=== PATIENT | male | born 1960 | race Caucasian/White ===

== ENCOUNTER 2019-12-18 12:10 | Emergency (ER) | payer BC, SELFPAY ==
[2019-12-18 12:19] VITALS: BP 163/72; PULSE 67; RESP 21; TEMP 37.2; O2SAT 99
--- NOTE | 2019-12-18 12:51 | ED.GENADULT ---
HPI - General Adult General Chief complaint: Extremity Problem,Nontraumatic Stated complaint: TOE PAIN Time Seen by Provider: 12/18/19 12:51 Source: patient and RN notes reviewed Mode of arrival: ambulatory Limitations: no limitations History of Present Illness HPI narrative: 59-year-old male presents with complaints of plantar LT 2nd, 3rd, and 4th toe swelling, warmth, tenderness, and redness for the past 2 days. No treatment. No known injury. Denies numbness or tingling. No weakness of LT leg, ankle, foot, or toes. Denies fever or chills. Denies immobility. Exacerbation is movement and palpation of toes. Relieving factor is rest. Denies break in skin or drainage. Denies abdominal pain, decrease appetite, nausea, or vomiting. History of Cellulitis. No history of MRSA. Remains active. Some parts of this dictation were generated by voice recognition software and may contain typographical and/or grammatical inaccuracies. Related Data Allergies Allergy/AdvReac Type Severity Reaction Status Date / Time No Known Allergies Allergy Unverified 07/27/18 18:51 Review of Systems Review of Systems: Narrative: CONSTITUTIONAL: Denies fever, chills, sweats. EYES: Denies visual changes, redness, discharge. ENT: Denies rhinorrhea, congestion, sore throat, otalgia. CARDIOVASCULAR: Denies chest pain, palpitations, edema. RESPIRATORY: Denies dyspnea, wheezing, cough. GASTROINTESTINAL: Denies abdominal pain, nausea, vomiting, diarrhea. GENITOURINARY: Denies dysuria, hematuria, abnormal discharge SKIN: Denies rash or itching. Complaints of plantar LT 2nd, 3rd, and 4th toes swelling, warmth, tenderness, and redness. Denies drainage. MUSCULOSKELETAL: Denies acute back pain or myalgia. Complains of plantar LT 2nd, 3rd, and 4th toes swelling, warmth, tenderness, and redness. Denies drainage. NEUROLOGIC: Denies numbness or focal weakness. PSYCHIATRIC: Denies anxiety or depression. All systems reviewed & are unremarkable except as noted in HPI and below. [facility] Past Medical History Medical History (Updated 12/21/19 @ 03:57 by ABDIRASHID Gonsalves) Colon polyp Diabetes Dyslipidemia Hypertension Hypothyroidism Inferior [place] 2005 Pancreatitis Umbilical hernia Surgical History Surgical History (Updated 12/21/19 @ 03:57 by ABDIRASHID Gonsalves) Hx of appendectomy Hx of CABG 2004, patient believe 3 vessels Family History Family History Grandparent Family history of cataracts Family history of heart disease in male family member before age 55 Father Carcinoma of colon Family history of hearing loss Patient's father is Mother Family history of coronary artery disease Family history of heart disease in male family member before age 55 Sibling Patient's brother is in good health Social History Social History (Updated 12/18/19 @ 13:10 by ABDIRASHID Gonsalves) Smoking status: Never smoker Second hand tobacco smoke exposure: No Alcohol intake: current Substance use: never Living arrangements: with family Occupation/Education: occupation Gender identity (if verbalized by the patient): Male Comments At time of signature, agree with nurse past medical, surgical, social, and family history. There is no relevant family history pertinent to the presenting complaint. Exam Narrative: Exam Narrative: GENERAL: This is a well-nourished, well-developed patient, in no apparent distress. Talks in full sentences and ambulates with steady gait without dyspnea. HEAD: normocephalic, atraumatic. EYES: PERRL. Sclera clear/white. Vision is grossly intact. NECK: Neck supple, non-tender without lymphadenopathy, masses or thyromegaly. CARDIOVASCULAR: Regular rate and rhythm without murmurs, gallops, or rubs. RESPIRATORY: Clear to auscultation. Breath sounds equal bilaterally. No wheezes, rales, or rhonchi. GASTROINTESTINAL: Abdomen soft, non-ten
== END 2019-12-18 13:15 | disposition home or self-care (01) ==
PROVIDERS: Emergency Provider Nurse Practitioner Family; PCP Internal Medicine
DX: L03.032 Cellulitis of left toe (principal); E11.9 Type 2 diabetes mellitus without complications; E78.5 Hyperlipidemia, unspecified; I10 Essential (primary) hypertension; E03.9 Hypothyroidism, unspecified; I25.2 Old myocardial infarction
CPT/HCPCS: 99213; G0463

== ENCOUNTER 2020-08-24 14:30 | Outpatient (CLI) | payer OTHER, SELFPAY ==
--- NOTE | 2020-08-24 | ECHO_ITS ---
Patient Info Name: Jesús Zhao Age: 60 years : 1960 Gender: Male Ht: 65 in Wt: 276 lbs BSA: 2.47 m2 HR: 73 bpm BP: 163 / 85 mmHg Heart Rhythm: Sinus Rhythm Technical Quality: Fair Exam Date: 08/24/2020 3:00 PM Exam Location: [facility] Patient Status: Outpatient Admit Date: 08/24/2020 Staff Ordering Physician: SandraNini MD Direct Marketing Representative: Albania Guzman RDCS Attending Provider: Fletcher, Nini Nuñez MD Referring Physician: Sandra WASSERMAN; Exam Type: CA echo doppler color flow Study Info Indications I48.0 - Paroxysmal atrial fibrillation Complete two-dimensional, color flow and Doppler transthoracic echocardiogram is performed. Summary 1. Complete two-dimensional, color flow and Doppler transthoracic echocardiogram is performed. 2. Left ventricular chamber dimension is normal. 3. Left ventricular systolic function is normal, estimated at 65-70%. 4. There is moderately increased left ventricular wall thickness. 5. The left ventricular diastolic function is grade I diastolic dysfunction. 6. There is mild tricuspid valve regurgitation. 7. There is mild pulmonic regurgitation. 8. Left atrial chamber dimension is mildly enlarged. 9. The aortic root size at the sinus of Valsalva is mildly dilated. Left Ventricle Left ventricular chamber dimension is normal. Left ventricular systolic function is normal, estimated at 65-70%. There is moderately increased left ventricular wall thickness. The left ventricular diastolic function is grade I diastolic dysfunction. Right Ventricle Right ventricular chamber dimension is normal. Right ventricular systolic function is normal. Left Atria Left atrial chamber dimension is mildly enlarged. Right Atria Right atrial chamber dimension is normal. Atrial Septum Intact interatrial septum visualized by color flow imaging. Aortic Valve The aortic valve is trileaflet. There is mild aortic valve sclerosis. There is no aortic valve stenosis. There is trace aortic valve regurgitation. Pulmonic Valve The pulmonic valve is normal. There is no pulmonic valve stenosis. There is mild pulmonic regurgitation. Mitral Valve The mitral valve has normal leaflets. There is no mitral valve stenosis. There is trace mitral valve regurgitation. Tricuspid Valve The tricuspid valve leaflets are normal. There is no significant tricuspid valve stenosis. There is mild tricuspid valve regurgitation. No pulmonary hypertension, estimated pulmonary arterial systolic pressure is 34 mmHg. Pericardium/Pleural The pericardium appears normal. There is no pericardial effusion. Inferior Vena Cava Normal inferior vena cava with >50% collapse upon inspiration consistent with normal right atrial pressure, 10 mmHg. Aorta The aortic root size at the sinus of Valsalva is mildly dilated. Left Ventricular Outflow Tract Name Value Normal LVOT 2D LVOT Diameter 2.1 cm LVOT Doppler LVOT Peak Gradient 4 mmHg LVOT Mean Gradient 2 mmHg LVOT VTI 22 cm
== END 2020-08-24 14:31 | disposition home or self-care (01) ==
PROVIDERS: PCP Internal Medicine; Visit Provider Internal Medicine Cardiovascular Disease
DX: I48.0 Paroxysmal atrial fibrillation (principal); I36.1 Nonrheumatic tricuspid (valve) insufficiency; I37.1 Nonrheumatic pulmonary valve insufficiency
CPT/HCPCS: 93306

== ENCOUNTER → 2021-02-03 01:08 | Outpatient (CLI) | payer OTHER, SELFPAY ==
[2021-02-03 19:43] LABS: SARS-CoV-2 RNA PCR Negative
== END ==
PROVIDERS: PCP Internal Medicine; Visit Provider Internal Medicine Gastroenterology
DX: Z01.812 Encounter for preprocedural laboratory examination (principal); Z20.822 Contact with and (suspected) exposure to COVID-19
CPT/HCPCS: C9803; U0003; U0005

== ENCOUNTER 2021-02-07 00:23 | Day surgery (SDC) | payer OTHER, SELFPAY ==
[2021-01-25 15:40] VITALS: BMI 47.3
[2021-02-07 11:43] VITALS: BP 172/80; PULSE 65; RESP 16; TEMP 36.6; O2SAT 97; BMI 47.8
[2021-02-07] MEDS: LACTATED RINGERS 1,000 ML 150 ML IV CONT (12:04)
[2021-02-07 12:08] LABS: Glucose Point of Care 121 (65-105)
--- NOTE | 2021-02-07 12:09 | WPDANESEPPF ---
Anes - Initial Pre Proc Eval Procedure: Operation Date: 02/07/21 12:30 Proposed Procedures p Esophagogastroduodenoscopy - Levi Ling MD Date/Time: 02/07/21 12:09 Surgeon: Levi Ling MD Pre Op Diagnosis: abd pain, abd bloating Patient Data Age: 61 Gender: M Height: 5 ft 5 in Weight: 130.4 kg Last Vital Signs Temp 97.8 F 02/07/21 11:43 Pulse 65 02/07/21 11:43 Resp 16 02/07/21 11:43 BP 172/80 H 02/07/21 11:43 Pulse Ox 97 02/07/21 11:43 Allergies Allergy/AdvReac Type Severity Reaction Status Date / Time No Known Allergies Allergy Verified 02/07/21 11:39 Home Medications Medication Instructions Recorded Confirmed Type pen needle, diabetic 31 gauge x #90 each 12/14/19 02/07/21 Rx 03/04 atorvastatin 80 mg tablet 80 mg PO DAILY 01/03/20 02/07/21 History carvedilol 12.5 mg tablet 12.5 mg PO Q12H 01/03/20 02/07/21 History clopidogrel 75 mg tablet 75 mg PO DAILY 01/03/20 02/07/21 History clotrimazole-betamethasone 1 1 applic TOPICAL BID 01/03/20 02/07/21 History %-0.05 % topical cream ezetimibe 10 mg tablet 10 mg PO DAILY 01/03/20 02/07/21 History furosemide 20 mg tablet 20 mg PO QAM 01/03/20 02/07/21 History nitroglycerin 0.4 mg sublingual 0.4 mg SUBLINGUAL Q5M 01/03/20 02/07/21 History tablet potassium chloride 10 mEq 10 meq PO DAILY 01/03/20 02/07/21 History capsule,extended release quinapril 40 mg tablet 40 mg PO DAILY 01/03/20 02/07/21 History ranolazine 1,000 mg 1,000 mg PO Q12H 01/03/20 02/07/21 History tablet,extended release,12 hr ropinirole 1 mg tablet 1 mg PO .QHS #30 tablet 10/09/20 02/07/21 Rx blood sugar diagnostic #400 ea 10/12/20 02/07/21 Rx omeprazole 20 mg tablet,delayed 20 mg PO DAILY #30 tablet 11/13/20 02/07/21 Rx release apixaban 2.5 mg tablet 2.5 mg PO BID 11/20/20 02/07/21 History pen needle, diabetic 32 gauge x #100 ea 12/27/20 02/07/21 Rx 5/32 amlodipine 2.5 mg PO DAILY 01/25/21 02/07/21 History levothyroxine 88 mcg tablet See Rx Instructions .ROUTE 01/31/21 02/07/21 Rx .COMPLEX #90 tablet sildenafil (pulm.hypertension) 20 40 - 100 mg PO ONCE PRN #50 tablet 02/05/21 02/07/21 Rx mg tablet flash glucose scanning reader #1 ea 02/06/21 02/07/21 Rx flash glucose scanning reader #6 ea 02/06/21 02/07/21 Rx insulin regular hum U-500 conc See Rx Instructions SUBCUT ONCE 02/06/21 02/07/21 Rx #30 ml liraglutide 0.6 mg/0.1 mL (18 mg/3 1.8 mg SUB-Q DAILY 90 Days #27 ml 02/06/21 02/07/21 Rx mL) subcutaneous pen injector metformin 500 mg tablet See Rx Instructions .ROUTE 02/06/21 02/07/21 Rx .COMPLEX #360 tablet Laboratory Tests 02/07/21 11:50 POC Capillary Glucose 121 mg/dl H mg/dl (65-105) Patient hx anesthesia problems: none Family hx anesthesia problems: none PMFSH Past Medical History Medical History (Updated 02/06/21 @ 08:41 by Lilly Rodríguez MD) Colon polyp Diabetes Dyslipidemia Hypertension Hypothyroidism Inferior [place] 2004 Pancreatitis Umbilical hernia Surgical History Surgical History Hx of appendectomy Hx of CABG 2004, patient believe 3 vessels Family History Family History Grandparent Family history of cataracts Family history of heart disease in male family member before age 55 Father Carcinoma of colon Family history of hearing loss Patient's father is Mother Family history of coronary artery disease Family history of heart disease in male family member before age 55 Sibling Patient's brother is in good health Social History Social History Smoking status: Never smoker Second hand tobacco smoke exposure: No Alcohol intake: current Drinks per week: 1 Substance use: never Living arrangements: with family Additional living arrangements comments:
--- NOTE | 2021-02-07 13:03 | PM.HPGS ---
History of Present Illness History of Present Illness Consent: Risks, benefits, and alternatives have been discussed and questions answered. Patient agrees to proceed with procedure. Chief complaint: abd pain, abd bloating Narrative: Jesús Zhao is a 61 year old male with abdominal bloating, h/o DM and sulfur burping , PPI is not helping, never had egd. Review of Systems Constitutional: Constitutional: Denies headache(s) and Denies weakness Eyes: Eyes: Denies blurry vision ENT: Reports Normal hearing present, Denies headache(s) and Denies neck pain Cardiovascular: Cardiovascular: Denies chest pain and Denies dyspnea Respiratory: Respiratory: Denies dyspnea Gastrointestinal: Gastrointestinal: Reports no additional gastrointestinal complaints Genitourinary: Genitourinary: Denies dysuria Musculoskeletal: Musculoskeletal: Denies neck pain Integumentary/Breasts: Skin/Breast: Denies dry skin Neurologic: Reports Normal hearing present, Denies headache(s) and Denies weakness Psychiatric: Psychiatric: Denies anxiety Endocrine: Endocrine: Denies change in body appearance Hematologic/Lymphatic: Hematologic/Lymphatic: Denies easy bleeding Allergic/Immunologic: Allergic/Immunologic: Denies urticaria PMFSH Past Medical History Medical History (Updated 02/07/21 @ 13:04 by Levi Ling MD) Bloating Colon polyp Diabetes Dyslipidemia Hypertension Hypothyroidism Inferior [place] 2004 Pancreatitis Umbilical hernia Surgical History Surgical History Hx of appendectomy Hx of CABG 2004, patient believe 3 vessels Family History Family History Grandparent Family history of cataracts Family history of heart disease in male family member before age 55 Father Carcinoma of colon Family history of hearing loss Patient's father is Mother Family history of coronary artery disease Family history of heart disease in male family member before age 55 Sibling Patient's brother is in good health Social History Social History Smoking status: Never smoker Second hand tobacco smoke exposure: No Alcohol intake: current Drinks per week: 1 Substance use: never Living arrangements: with family Additional living arrangements comments: lives with his 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 Gender identity (if verbalized by the patient): Male Spiritual care concerns: No Meds Home Medications and Allergies Home Medications Medication Instructions Recorded Confirmed Type pen needle, diabetic 31 gauge x #90 each 12/14/19 02/07/21 Rx 03/04 atorvastatin 80 mg tablet 80 mg PO DAILY 01/03/20 02/07/21 History carvedilol 12.5 mg tablet 12.5 mg PO Q12H 01/03/20 02/07/21 History clopidogrel 75 mg tablet 75 mg PO DAILY 01/03/20 02/07/21 History clotrimazole-betamethasone 1 1 applic TOPICAL BID 01/03/20 02/07/21 History %-0.05 % topical cream ezetimibe 10 mg tablet 10 mg PO DAILY 01/03/20 02/07/21 History furosemide 20 mg tablet 20 mg PO QAM 01/03/20 02/07/21 History nitroglycerin 0.4 mg sublingual 0.4 mg SUBLINGUAL Q5M 01/03/20 02/07/21 History tablet potassium chloride 10 mEq 10 meq PO DAILY 01/03/20 02/07/21 History capsule,extended release quinapril 40 mg tablet 40 mg PO DAILY 01/03/20 02/07/21 History ranolazine 1,000 mg 1,000 mg PO Q12H 01/03/20 02/07/21 History tablet,extended release,12 hr ropinirole 1 mg tablet 1 mg PO .QHS #30 tablet 10/09/20 02/07/21 Rx blood sugar diagnostic #400 ea 10/12/20 02/07/21 Rx omeprazole 20 mg tablet,delayed 20 mg PO DAILY #30 tablet 11/13/20 02/07/21 Rx release apixaban 2.5 mg tablet 2.5 mg PO BID 11/20/20 02/07/21 History pen needle, diabetic 32 gauge x #100 ea 12/27/20 02/07/21 Rx amlodipine 2.5 mg PO ERICA
[2021-02-07] MEDS: BENZOCAINE (*SP) 60 ML SPRAY CAN (HURRICAINE) 1 SPRAY MUCOUS MEM (13:11)
[2021-02-07 13:29] VITALS: BP 152/67; PULSE 69; RESP 24; O2SAT 96
[2021-02-07 13:39] VITALS: BP 155/71; PULSE 67; RESP 19; O2SAT 95
== END 2021-02-07 14:10 | disposition home or self-care (01) ==
PROVIDERS: PCP Internal Medicine; Visit Provider Internal Medicine Gastroenterology
PROC: 0DJ08ZZ Inspection of Upper Intestinal Tract, Via Natural or Artificial Opening Endoscopic (ICD-10-PCS; CPT 43235; principal; 2021-02-07 12:30)
DX: R14.0 Abdominal distension (gaseous) (principal); R14.2 Eructation; E11.9 Type 2 diabetes mellitus without complications; I10 Essential (primary) hypertension; E78.5 Hyperlipidemia, unspecified; E03.9 Hypothyroidism, unspecified; I25.2 Old myocardial infarction; Z95.1 Presence of aortocoronary bypass graft; E66.01 Morbid (severe) obesity due to excess calories; Z68.42 Body mass index [BMI] 45.0-49.9, adult; Z79.02 Long term (current) use of antithrombotics/antiplatelets; Z79.01 Long term (current) use of anticoagulants; Z79.4 Long term (current) use of insulin; Z79.84 Long term (current) use of oral hypoglycemic drugs
CPT/HCPCS: 43239; 82948; 88305; C9803; J2001; J2704; J7120; U0003; U0005

== ENCOUNTER 2021-04-02 09:01 | Outpatient (CLI) | payer OTHER, SELFPAY ==
--- NOTE | ~2021-04-02 | NM_ITS ---
EXAM: NM gastric emptying study DATE: 04/02/2021 14:44 INDICATION: Gaseous distention of the abdomen TECHNIQUE: A gastric emptying study was performed using the methodology of Madeline DUTTON, et al. J Nucl Med 2007; 48:568-572. The patient was given a meal consisting of 2 scrambled eggs labeled with 0.996 mCi Tc-99m sulfur colloid, 2 slices of toast, two packages of jam, and approximately 120 mL of water . Simultaneous anterior and posterior 1-min images of the abdomen were obtained with the patient supi ne at multiple time points over a total period of 4 hours. The geometric mean of anterior and posteri or views was determined, and the percentage retention was calculated for each time point. COMPARISON: None. FINDINGS: Gastric retention of the radiotracer-labeled meal was 83%, 70%, and 48% at the 1-hour, 2-hour, and 4- hour time points, respectively. With this technique, apparent rapid gastric emptying is suggested by <30% gastric retention at 1 hour. Delayed gastric emptying is defined by gastric retention of >90% at 1 hour, >60% retention at 2 hours, or >10% retention at 4 hours. IMPRESSION: 1. Delayed gastric emptying. Reviewed, dictated and finalized at location A.
== END 2021-04-02 09:02 | disposition home or self-care (01) ==
PROVIDERS: PCP Internal Medicine; Visit Provider Internal Medicine Gastroenterology
DX: E11.65 Type 2 diabetes mellitus with hyperglycemia (principal); R14.0 Abdominal distension (gaseous); Z79.4 Long term (current) use of insulin; K30 Functional dyspepsia
CPT/HCPCS: 78264; A9541

== ENCOUNTER 2022-07-10 07:56 | Outpatient (CLI) | payer OTHER, SELFPAY ==
--- NOTE | 2022-08-07 18:53 | WPDSLEEPSTUD ---
Sleep Study Date of Study: 07/10/22 Ordering Provider: Joshua Danielle PA-C Interpreting Physician: Laura Reddy DO Sleep Study Type: Split Polysomnogram Height: 1.65 m Weight: 133.81 kg Body Mass Index: 49.1 Neck Circumference (inches): 18 [place]: 18 Reason for Sleep Study Previously diagnosed JULIANNE in 1998. His previous machine broke 6 weeks ago. Sleep History The patient is a 62 year old male with hypertension, coronary artery disease, diabetes, GERD, peripheral neuropathy, history of stents and bypass and previously diagnosed sleep apnea that had a sleep study ordered by his primary care to requalify for PAP therapy. The patient frequently awakens from sleep short of breath. He occasionally awakens at night with heartburn, belching or cough. He frequently snores loud enough that others complain. He frequently has trouble sleeping when he has a cold. He occasionally wakes up gasping for air throughout the night. He occasionally has breathing problems at night observed by himself or others. He frequently sweats excessively at night. He frequently has heart palpitations or irregular heartbeats during the night. He occasionally falls asleep during the day but rarely while driving. He denies having cataplexy. He occasionally has trouble at school or work due to sleepiness. He occasionally feels unable to move while waking up or falling asleep. He occasionally experiences vivid dreamlike scenes upon awakening or falling asleep. He rarely feels afraid of going to sleep. He rarely has nightmares. He occasionally remembers his dreams. He occasionally has thoughts racing through his mind. He rarely feels sad or depressed. He rarely has anxiety. He rarely has muscular tension. He rarely notices parts of his body jerk. He rarely kicks during the night. He rarely has crawling and aching feelings in his legs. He rarely has leg pain during the night. He occasionally grinds his teeth during sleep but denies awakening with morning jaw pain. He is rarely bothered by pain during the day and rarely awakened by pain during the night. He occasionally wakes up feeling stiff in the morning. He rarely wakes up with sore achy muscles. He rarely wakes up with pain in the neck, spine and other joints. He goes to bed between 1:23 a.m. on weekdays and between 2-4 a.m. on the weekends. It takes him up to 2 hours to fall asleep. He wakes up every 1-2 hours to use the restroom, get a drink and or play a game on his [place]. It takes him 30 minutes to fall back asleep. He wakes up between 7-8 a.m. on weekdays and between 9-11 a.m. on the weekends. He typically gets 2-5 hours of sleep per night. He will stay in bed for 15-30 minutes after waking up in the morning. He currently lives with his and son's ex-fiance. He does not consume any caffeinated beverages within 2 hours of bedtime. He does not engage in physical exercise before bedtime. He will read and watch television before falling asleep. He will take naps in the afternoon or the evening but they are not refreshing. He drinks 3 caffeinated beverages per day. He denies tobacco, alcohol and recreational drug use. [facility] Past Medical History Medical History Bloating Colon polyp Diabetes Dyslipidemia Hypertension Hypothyroidism Inferior [place] 2004 Pancreatitis Umbilical hernia Surgical History Surgical History Hx of appendectomy Hx of CABG 2004, patient believe 3 vessels Family History Family History Grandparent Family history of cataracts Family history of heart disease in male family member before age 55 Father Carcinoma of colon Family history of hearing loss Patient's father is Mother Family history of coronary artery disease Family history of heart disease in ct
[2022-08-07 19:04] VITALS: BMI 49.1
== END 2022-07-11 06:51 | disposition home or self-care (01) ==
LOC: ANHCSM 07:57
PROVIDERS: PCP Physician Assistant; Visit Provider Physician Assistant
DX: G47.33 Obstructive sleep apnea (adult) (pediatric) (principal)
CPT/HCPCS: 95811

== ENCOUNTER 2024-08-10 03:06 | Day surgery (SDC) | payer MEDICARE, OTHER, SELFPAY ==
[2024-08-04 14:39] VITALS: BMI 44.1
--- NOTE | 2024-08-05 11:54 | PC.NURSE ---
Patient requested this information to be emailed. He is instructed regarding medication Plavix and Eliquis that the last dose of PLAVIX IS 08/05/24 and last dose of ELIQUIS IS 08/07/2024 and the Endoscopist will instruct them when to restart after the procedure.
[2024-08-10 08:39] VITALS: BP 164/75; PULSE 66; RESP 18; TEMP 36.5; O2SAT 95; BMI 43.9
--- NOTE | 2024-08-10 08:50 | PM.HPGS ---
History of Present Illness History of Present Illness Consent: Risks, benefits, and alternatives have been discussed and questions answered. Patient agrees to proceed with procedure. Chief complaint: History colon polyps Narrative: Jesús Zhao is a 64 year old male with colon polyp, last colonoscopy 2019 Review of Systems Review of Systems: All systems reviewed & are unremarkable except as noted in HPI and below PMFSH Past Medical History Medical History (Updated 08/10/24 @ 08:53 by Levi Ling MD) Atherosclerosis Bloating Body mass index (BMI) greater than 50 (01/03/16) CAD (coronary artery disease) Colon polyp Diabetes Diabetic peripheral neuropathy Dyslipidemia Essential (primary) hypertension Gastro-esophageal reflux disease without esophagitis History of PAT (paroxysmal atrial tachycardia) Hypertension Hypothyroidism Hypothyroidism (acquired) Inferior [place] 2004 Male erectile dysfunction, unspecified Metabolic syndrome Morbid obesity with BMI of 45.0-49.9, adult Musculoskeletal pain JULIANNE (obstructive sleep apnea) Pancreatitis Pure hypercholesterolemia Sleep apnea, unspecified Type 2 diabetes mellitus without complications Umbilical hernia Surgical History Surgical History Hx of appendectomy Hx of CABG 2004, patient believe 3 vessels Family History Family History Grandparent Family history of cataracts Family history of heart disease in male family member before age 55 Father Carcinoma of colon Family history of hearing loss Patient's father is Mother Family history of coronary artery disease Family history of heart disease in male family member before age 55 Sibling Patient's brother is in good health Social History Social History Smoking status: Never smoker Second hand tobacco smoke exposure: No Alcohol intake: current Drinks per week: 1 Substance use: never Substance use type: does not use Do You Feel Safe in your Home?: Yes Lack of Transportation: No Lack of Food: Never True Current Housing: I Have Housing Concerned About Future Housing: No Difficulty Paying Gas/Electric Bills: No Difficulty Paying for Meds: No Currently Unemployed: No Education: Bachelor's Degree Difficulty w/ Childcare or Family Care: No Living arrangements: with family Additional living arrangements comments: lives with his Occupation/Education: occupation 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 Gender identity (if verbalized by the patient): Male Spiritual care concerns: No Meds Home Medications and Allergies Home Medications Medication Instructions Recorded Confirmed Type carvedilol 12.5 mg tablet 12.5 mg PO Q12H 01/03/20 08/10/24 History potassium chloride 10 mEq 10 meq PO DAILY PRN WITH LASIX 01/03/20 08/10/24 History capsule,extended release furosemide 20 mg tablet 20 mg PO QAM PRN Edema 06/11/21 08/10/24 History clopidogrel 75 mg tablet See Rx Instructions .Route 04/11/23 08/10/24 Rx .COMPLEX #90 tabs apixaban 5 mg tablet (Eliquis) 5 mg PO BID #1 tablet 11/25/23 08/10/24 Rx amlodipine 5 mg-benazepril 20 mg 1 cap PO DAILY #90 caps 01/19/24 08/10/24 Rx capsule atorvastatin 80 mg tablet 80 mg PO DAILY #90 tabs 01/19/24 08/10/24 Rx blood sugar diagnostic #400 ea 01/19/24 08/10/24 Rx ezetimibe 10 mg tablet (Zetia) 10 mg PO DAILY #90 tabs 01/19/24 08/10/24 Rx insulin regular hum U-500 conc 500 See Rx Instructions .Route 01/19/24 08/10/24 Rx unit/mL(3 mL) subcut pen (Humulin .COMPLEX #48 mL R U-500 (Conc) Insulin Kwikpen) pen needle, diabetic 32 gauge x See Rx Instructions .Route 01/19/24 08/10/24 Rx 5/32 (BD Deya 2nd Gen Pen Needle) .COMPLEX #300 ea ropinirole 1 mg tablet 1 mg PO .QHS #90 tabs 02/06/24 08/10/24 Rx empaglif
[2024-08-10] MEDS: LACTATED RINGERS 1,000 ML 150 ML IV CONT (08:52)
--- NOTE | 2024-08-10 08:58 | WPDANESEPPF ---
Anes - Initial Pre Proc Eval Procedure: Operation Date: 08/10/24 09:30 Proposed Procedures p Colonoscopy - Levi Ling MD Date/Time: 08/10/24 08:58 Surgeon: Levi Ling MD Pre Op Diagnosis: History colon polyps Patient Data Age: 64 Gender: M Height: 1.65 m Weight: 119.8 kg Last Vital Signs Temp 36.5 C 08/10/24 08:39 Pulse 66 08/10/24 08:39 Resp 18 08/10/24 08:39 BP 164/75 H 08/10/24 08:39 Pulse Ox 95 08/10/24 08:39 O2 Del Method Room Air 08/10/24 08:39 Allergies Allergy/AdvReac Type Severity Reaction Status Date / Time No Known Allergies Allergy Verified 08/10/24 08:27 Home Medications Medication Instructions Recorded Confirmed Type carvedilol 12.5 mg tablet 12.5 mg PO Q12H 01/03/20 08/10/24 History potassium chloride 10 mEq 10 meq PO DAILY PRN WITH LASIX 01/03/20 08/10/24 History capsule,extended release furosemide 20 mg tablet 20 mg PO QAM PRN Edema 06/11/21 08/10/24 History clopidogrel 75 mg tablet See Rx Instructions .Route 04/11/23 08/10/24 Rx .COMPLEX #90 tabs apixaban 5 mg tablet (Eliquis) 5 mg PO BID #1 tablet 11/25/23 08/10/24 Rx amlodipine 5 mg-benazepril 20 mg 1 cap PO DAILY #90 caps 01/19/24 08/10/24 Rx capsule atorvastatin 80 mg tablet 80 mg PO DAILY #90 tabs 01/19/24 08/10/24 Rx blood sugar diagnostic #400 ea 01/19/24 08/10/24 Rx ezetimibe 10 mg tablet (Zetia) 10 mg PO DAILY #90 tabs 01/19/24 08/10/24 Rx insulin regular hum U-500 conc 500 See Rx Instructions .Route 01/19/24 08/10/24 Rx unit/mL(3 mL) subcut pen (Humulin .COMPLEX #48 mL R U-500 (Conc) Insulin Kwikpen) pen needle, diabetic 32 gauge x See Rx Instructions .Route 01/19/24 08/10/24 Rx 5/32 (BD Deya 2nd Gen Pen Needle) .COMPLEX #300 ea ropinirole 1 mg tablet 1 mg PO .QHS #90 tabs 02/06/24 08/10/24 Rx empagliflozin 25 mg tablet 25 mg PO QAM #90 tabs 05/05/24 08/10/24 Rx (Jardiance) semaglutide 2 mg/dose (8 mg/3 mL) 2 mg (0.75 mL) subcut WEEKLY 90 05/26/24 08/10/24 Rx subcutaneous pen injector (Ozempic) days #9 mL clotrimazole-betamethasone 1 1 applic topical BID #45 grams 07/07/24 08/10/24 Rx %-0.05 % topical cream sildenafil (pulm.hypertension) 20 40 - 100 mg PO ONCE PRN sexual 07/07/24 08/10/24 Rx mg tablet activity #50 tabs gabapentin 300 mg capsule 300 mg PO BID #60 caps 07/16/24 08/10/24 Rx glucagon 3 mg/actuation nasal spray 3 mg intranasal ONCE PRN LOW BLOOD 08/04/24 08/10/24 History SUGAR levothyroxine 88 mcg tablet See Rx Instructions .Route 08/04/24 08/10/24 Rx .COMPLEX #90 tabs metformin 500 mg tablet,extended 2,000 mg PO DAILY #360 tabs 08/04/24 08/10/24 Rx release 24 hr nitroglycerin 0.4 mg sublingual 0.4 mg sublingual Q5M CHEST PAIN 08/04/24 08/10/24 History tablet (Nitrostat) ranolazine 500 mg tablet,extended 500 mg PO DAILY 08/04/24 08/10/24 History release,12 hr omeprazole 20 mg capsule,delayed See Rx Instructions .Route 08/05/24 08/10/24 Rx release .COMPLEX #90 caps Patient hx anesthesia problems: none Family hx anesthesia problems: none Results Review: All pre-operative results and documents have been reviewed as part of the pre-operative evaluation. [facility] Past Medical History Medical History Atherosclerosis Bloating Body mass index (BMI) greater than 50 (01/03/16) CAD (coronary artery disease) Colon polyp Diabetes Diabetic peripheral neuropathy Dyslipidemia Essential (primary) hypertension Gastro-esophageal reflux disease without esophagitis History of PAT (paroxysmal atrial tachycardia) Hypertension Hypothyroidism Hypothyroidism (acquired) Inferior [place] 2004 Male erectile dysfunction, unspecified Metabolic syndrome Morbid obesity with BMI of 45.0-49.9, adult Musculoskeletal pain JULIANNE (obstructive sleep apnea) Pancreatitis Pure hypercholesterolemia Sleep apnea, unspecified Type 2 diabetes mellitus without complications Umbilical herni
[2024-08-10 09:05] LABS: Glucose Point of Care 150 mg/dl (65-105)
[2024-08-10 09:24] VITALS: BP 129/49; PULSE 62; RESP 18; O2SAT 97
[2024-08-10 09:34] VITALS: BP 157/65; PULSE 60; RESP 18; O2SAT 99
[2024-08-10 09:44] VITALS: BP 129/55; PULSE 61; RESP 18; O2SAT 99
[2024-08-10 10:16] LABS: Glucose Point of Care 134 mg/dl (65-105)
== END 2024-08-10 09:50 | disposition home or self-care (01) ==
PROVIDERS: PCP Internal Medicine; Visit Provider Internal Medicine Gastroenterology
PROC: 0DJD8ZZ Inspection of Lower Intestinal Tract, Via Natural or Artificial Opening Endoscopic (ICD-10-PCS; CPT 45378; principal; 2024-08-10 09:30)
DX: Z12.11 Encounter for screening for malignant neoplasm of colon (principal); D12.2 Benign neoplasm of ascending colon; D12.3 Benign neoplasm of transverse colon; D12.5 Benign neoplasm of sigmoid colon; K64.8 Other hemorrhoids; E78.5 Hyperlipidemia, unspecified; I10 Essential (primary) hypertension; E11.42 Type 2 diabetes mellitus with diabetic polyneuropathy; K21.9 Gastro-esophageal reflux disease without esophagitis; E03.9 Hypothyroidism, unspecified; N52.9 Male erectile dysfunction, unspecified; I70.90 Unspecified atherosclerosis; I25.10 Atherosclerotic heart disease of native coronary artery without angina pectoris; I47.19 Other supraventricular tachycardia; I25.2 Old myocardial infarction; E88.810 Metabolic syndrome; G47.33 Obstructive sleep apnea (adult) (pediatric); E66.01 Morbid (severe) obesity due to excess calories; Z68.41 Body mass index [BMI] 40.0-44.9, adult; Z79.01 Long term (current) use of anticoagulants; Z79.4 Long term (current) use of insulin; Z79.84 Long term (current) use of oral hypoglycemic drugs; Z79.02 Long term (current) use of antithrombotics/antiplatelets; Z79.85 Long-term (current) use of injectable non-insulin antidiabetic drugs; Z98.890 Other specified postprocedural states; Z95.1 Presence of aortocoronary bypass graft; Z80.0 Family history of malignant neoplasm of digestive organs; Z82.49 Family history of ischemic heart disease and other diseases of the circulatory system
CPT/HCPCS: 45385; 82948; 88305; J2704; J7120

== ENCOUNTER 2024-08-19 09:47 | Inpatient (IN) | payer MEDICARE, OTHER, SELFPAY ==
[2024-08-19] VITALS (19 sets, daily range): BP systolic 82–123; BP diastolic 35–75; PULSE 73–95; RESP 13–20; TEMP 36.3–37; O2SAT 95–100; BMI 43.4
--- NOTE | ~2024-08-19 | CT_ITS ---
EXAMINATION: CT abdomen pelvis w con DATE: 08/19/2024 12:06 INDICATION: Rectal bleeding and left lower quadrant abdominal pain TECHNIQUE: Computed tomography (CT) of the abdomen and pelvis was performed with 100 mL Omnipaque-350 intravenous contrast. Automated exposure control and iterative reconstruction technique were employe d. The dose-length product was 1464.07 mGy-cm. COMPARISON: 08/05/2013 FINDINGS: Discoid atelectasis in the left lower lobe and lingula. Heart size is normal. No pericardial or pleur al effusion. Atherosclerotic coronary artery calcifications with change of prior median sternotomy an d coronary artery bypass grafting. A few small gallstones at the neck of the decompressed normal-appe aring gallbladder. Liver, spleen and pancreas are normal. Stable appearance of mild nodular thickenin g of the bilateral adrenal glands. Multiple small parapelvic cysts at both kidneys with additional 1. 3 similar parenchymal cyst at the mid left kidney. A couple nonobstructing stones, the larger measuri ng 6 mm at the lower pole of the left kidney. There is some fluid in nondilated small bowel and proxi mal colon consistent with diarrhea. No abnormal bowel wall thickening or obstruction. The appendix is not visualized. No pericecal inflammatory change to suggest acute appendicitis. Small fat-containing umbilical hernia. Bladder is normal. No free intraperitoneal gas or fluid. No pathologically enlarge d abdominal or pelvic lymphadenopathy. Mild thoracolumbar levocurvature with severe spondylosis. IMPRESSION: 1. Fluid in nondilated normal. Large and small bowel consistent with nonspecific diarrhea. No other a cute intra-abdominal/pelvic process. 2. Nonobstructing left nephrolithiasis. 3. Cholelithiasis. Reviewed, dictated and finalized at location A. IMPRESSION: 1. Fluid in nondilated normal. Large and small bowel consistent with nonspecifi c diarrhea. No other acute intra-abdominal/pelvic process. 2. Nonobstructing left nephrolithiasis. 3. Cholelithiasis.
[2024-08-19 11:14] LABS: Basophils Percent Auto 0.4 % (0.2-1.2); Eosinophils Absolute Auto 0.2 K/mm3 (0-0.3); Eosinophils Percent Auto 1.6 % (0-4.4); Hematocrit 36.9 % (42.0-52.0); Hemoglobin 11.5 g/dL (14.0-18.0); Immature Granulocyte Absolute 0.05 K/mm3 (0.00-0.031); Immature Granulocyte Percent A 0.5 % (0-0.5); Lymphocytes Percent Auto 10.6 % (18.3-44.2); Mean Corpuscular HGB Conc 31.2 g/dl (32-36); Mean Corpuscular Hemoglobin 25.4 pg (26-34); Mean Corpuscular Volume 81.5 fl (80-100); Mean Platelet Volume 9.3 fl (7.4-10.4); Monocytes Absolute Auto 0.7 K/mm3 (0.1-0.6); Monocytes Percent Auto 7.5 % (2.6-8.5); Neutrophils Absolute Auto 7.5 K/mm3 (1.3-6.7); Neutrophils Percent Auto 79.4 % (45.5-73.1); Platelet Count Result 301 k/mm3 (150-375); Red Blood Count 4.53 M/mm3 (4.6-6.20); Red Cell Distribution Width 17.6 % (11.5-14.5); White Blood Count 9.5 K/mm3 (4.5-10.0)
[2024-08-19 11:25] LABS: Alanine Aminotransferase 27 U/L (6-50); Albumin Level 3.4 g/dL (3.5-5.1); Alkaline Phosphatase 65 U/L (38-126); Anion Gap 11 mmol/L (4-12); Aspartate Amino Transferase 21 U/L (17-59); Bilirubin,Total 0.6 mg/dL (0.2-1.3); Blood Urea Nitrogen 20 mg/dL (9-20); Calcium 8.4 mg/dL (8.4-10.2); Carbon Dioxide 20 mmol/L (22-30); Chloride 110 mmol/L (98-107); Estimated CRCL calculation 76 ml/min; Estimated Glomerular Filt Rate > 60; Glucose 160 mg/dL (65-110); Potassium 4.1 mmol/L (3.4-5.0); Sodium 141 mmol/L (137-145)
[2024-08-19 11:39] LABS: INR 1.2; Prothrombin Time 15.1 Seconds (11.1-14.7)
[2024-08-19 11:40] LABS: Partial Thromboplastin Time 27.1 Seconds (22.3-36.8)
--- NOTE | 2024-08-19 12:06 | ED_ITS ---
HPI - General Adult General Chief complaint: GI Bleed Stated complaint: BLOOD IN STOOL Time Seen by Provider: 08/19/24 11:15 History of Present Illness HPI narrative: 64-year-old male present to the emergency department for evaluation for dark red blood per rectum. Patient started having diarrhea yesterday. Patient then noticed that his diarrhea started having both bright red and dark red blood in it. Patient also does report associated left lower quadrant pain. Patient does take Eliquis. On 08/10 patient did have polyps removed by Dr. Young Related Data Home Medications Medication Instructions Recorded Confirmed carvedilol 12.5 mg tablet 12.5 mg PO Q12H 01/03/20 08/19/24 furosemide 20 mg tablet 20 mg PO QAM PRN Edema 06/11/21 08/19/24 glucagon 3 mg/actuation nasal spray 3 mg intranasal ONCE PRN LOW BLOOD 08/04/24 08/19/24 SUGAR nitroglycerin 0.4 mg sublingual 0.4 mg sublingual Q5M CHEST PAIN 08/04/24 08/19/24 tablet (Nitrostat) ranolazine 500 mg tablet,extended 500 mg PO DAILY 08/04/24 08/19/24 release,12 hr atorvastatin 80 mg tablet 80 mg PO HS 08/19/24 08/19/24 clopidogrel 75 mg tablet 75 mg PO DAILY 08/19/24 08/19/24 levothyroxine 88 mcg tablet 88 mcg PO DAILY 08/19/24 08/19/24 omeprazole 20 mg capsule,delayed 20 mg PO HS 08/19/24 08/19/24 release Allergies Allergy/AdvReac Type Severity Reaction Status Date / Time No Known Allergies Allergy Verified 08/10/24 08:27 Review of Systems Review of Systems: All systems reviewed & are unremarkable except as noted in HPI and below PMFSH Past Medical History Medical History Atherosclerosis Bloating Body mass index (BMI) greater than 50 (01/03/16) CAD (coronary artery disease) Colon polyp Diabetes Diabetic peripheral neuropathy Dyslipidemia Essential (primary) hypertension Gastro-esophageal reflux disease without esophagitis History of PAT (paroxysmal atrial tachycardia) Hypertension Hypothyroidism Hypothyroidism (acquired) Inferior [place] 2004 Male erectile dysfunction, unspecified Metabolic syndrome Morbid obesity with BMI of 45.0-49.9, adult Musculoskeletal pain JULIANNE (obstructive sleep apnea) Pancreatitis Pure hypercholesterolemia Sleep apnea, unspecified on CPAP Type 2 diabetes mellitus without complications Umbilical hernia Surgical History Surgical History History of coronary artery stent placement x5, 2005 Hx of appendectomy Hx of CABG 2005, patient believe 3 vessels Family History Family History Grandparent Family history of cataracts Family history of heart disease in male family member before age 55 Father Carcinoma of colon Family history of hearing loss Patient's father is Mother Family history of coronary artery disease Family history of heart disease in male family member before age 55 Sibling Patient's brother is in good health Social History Social History Smoking status: Never smoker Second hand tobacco smoke exposure: No Alcohol intake: never Drinks per week: 1 Substance use: never Substance use type: does not use Do You Feel Safe in your Home?: Yes Lack of Transportation: No Lack of Food: Never True Current Housing: I Have Housing Concerned About Future Housing: No Difficulty Paying Gas/Electric Bills: No Difficulty Paying for Meds: No Currently Unemployed: No Education: Bachelor's Degree Difficulty w/ Childcare or Family Care: No Living arrangements: with family Additional living arrangements comments: lives with his Occupation/Education: occupation 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 HEAD: normocephalic, atraumatic. EYES: PERRLA/EOMI, conjunctivae clear. NOSE: Normal no drainage EARS:TMS clear with good light reflex. THROAT: Pharynx clear, no exudate. NECK: Supple. No adenopathy, no masses. RESPIRATORY: Airway patent, respirations nonlabored. Clear to auscultation bilaterally, no rales, rhonchi, wheezing. CARDIOVASCULAR: Regular rate and rhythm without murmurs rubs or gallops. ABDOMINAL: Left lower quadrant tenderness to palpation MUSCULOSKELETAL: Moves all extremities. Strength/ROM intact, No edema, No calf tenderness. NEURO: Alert. Cranial nerves II through XII intact. Rectal exam: Positive Hemoccult SKIN: Warm, dry. Normal Color Course Vital Signs Vital signs: Vital Signs Temperature 97.8 F 08/19/24 10:30 Pulse Rate 81 08/19/24 10:30 Respiratory Rate 16 08/19/24 10:30 Blood Pressure 82/35 L 08/19/24 10:30 Pulse Oximetry 97 08/19/24 10:30 Temperature 97.9 F 08/19/24 17:43 Pulse Rate 95 08/19/24 18:00 Respiratory Rate 15 08/19/24 17:43 Blood Pressure 115/49 L 08/19/24 17:43 Pulse Oximetry 98 08/19/24 17:43 Oxygen Delivery Room Air 08/19/24 16:00 Medical Decision Making MDM Narrative Medical decision making narrative: 64-year-old male presents emergency department for evaluation for blood in his stool while on Eliquis. Patient initially had no hematemesis but did have episode of hematemesis while he was emergency department. Patient was started on Protonix and famotidine. Patient is afebrile with no leukocytosis. Patien t's initial baseline hemoglobin is closer to 13 patient's hemoglobin on arrival was 11. Patient's INR is 1.2. No significant abnormalities on the patient's CMP. GI was consulted and patient was admitted to the hospitalist. Patient family are comfortable with plan for admission. All questions concerns were addressed. Differential Diagnosis Differential Diagnosis: Colitis, diverticulitis, bleeding hemorrhoids, gastritis, bleeding ulcer, upper GI bleed, lower GI bleed, anemia Vital Signs Vital Signs: Vital Signs Temperature 97.8 F 08/19/24 10:30 Pulse Rate 81 08/19/24 10:30 Respiratory Rate 16 08/19/24 10:30 Blood Pressure 82/35 L 08/19/24 10:30 Pulse Oximetry 97 08/19/24 10:30 Temperature 97.9 F 08/19/24 17:43 Pulse Rate 95 08/19/24 18:00 Respiratory Rate 15 08/19/24 17:43 Blood Pressure 115/49 L 08/19/24 17:43 Pulse Oximetry 98 08/19/24 17:43 Oxygen Delivery Room Air 08/19/24 16:00 Lab Data Lab results reviewed: Yes I reviewed the patient's lab results. 08/19/24 16:06 08/19/24 11:05 Labs: Lab Results 08/19/24 Range/Units 11:05 WBC 9.5 (4.5-10.0) K/mm3 RBC 4.53 L (4.6-6.20) M/mm3 Hgb 11.5 L (14.0-18.0) g/dL Hct 36.9 L (42.0-52.0) % MCV 81.5 (80-100) fl MCH 25.4 L (26-34) pg MCHC 31.2 L (32-36) g/dl RDW 17.6 H (11.5-14.5) % Plt Count 301 (150-375) k/mm3 MPV 9.3 (7.4-10.4) fl Immature Gran % (Auto) 0.5 (0-0.5) % Neut % (Auto) 79.4 H (45.5-73.1) % Lymph % (Auto) 10.6 L (18.3-44.2) % Sullivan % (Auto) 7.5 (2.6-8.5) % Eos % (Auto) 1.6 (0-4.4) % Baso % (Auto) 0.4 (0.2-1.2) % Lymph # (Auto) 1.00 (0.9-3.2) K/mm3 Sullivan # (Auto) 0.7 H (0.1-0.6) K/mm3 Eos # (Auto) 0.2 (0-0.3) K/mm3 Baso # (Auto) 0.0 (0.0-0.1) K/mm3 Abs Immat Gran (auto) 0.05 H (0.00-0.031) K/mm3 Absolute Neuts (auto) 7.5 H (1.3-6.7) K/mm3 Absolute Nucleated RBC 0.000 (0.0-0.012) K/mm3 Nucleated RBC % 0.0 (0.0-0.2) % PT 15.1 H (11.1-14.7) Seconds INR 1.2 APTT 27.1 (22.3-36.8) Seconds Sodium 141 (137-145) mmol/L Potassium 4.1 (3.4-5.0) mmol/L Chloride 110 H (98-107) mmol/L Carbon Dioxide 20 L (22-30) mmol/L Anion Gap 11 (4-12) mmol/L BUN 20 (9-20) mg/dL Creatinine 1.00 (0.7-1.3) mg/dL Estim Creat Clear Calc 76 ml/min Estimated GFR > 60 (59 - ) Glucose 160 H (65-110) mg/dL Calcium 8.4 (8.4-10.2) mg/dL Total Bilirubin 0.6 (0.2-1.3) mg/dL AST 21 (17-59) U/L ALT 27 (6-50) U/L Alkaline Phosphatase 65 (38-126) U/L Total Protein 6.0 L (6.3-8.2) g/dL Albumin 3.4 L (3.5-5.1) g/dL Blood Type O Positive Antibody Screen Negative Crossmatch See Detail Imaging Data Radiologist's impression: Impressions Abdomen/Pelvis CT 08/19/24 12:11 IMPRESSION: 1. Fluid in nondilated normal. Large and small bowel consistent with nonspecific diarrhea. No other acute intra-abdominal/pelvic process. 2. Nonobstructing left nephrolithiasis. 3. Cholelithiasis. Critical Care Time Critical Care Time Critical Care Time: Yes Total Critical Care Time: 35 Discharge Plan Discharge Clinical Impression: Acute upper GI bleeding Patient Disposition: Still a Patient Condition: Improved
[2024-08-19] MEDS: PANTOPRAZOLE SODIUM IV 40 MG VIAL IV PUSH (12:18)
[2024-08-19] MEDS: FAMOTIDINE 20 MG/2 ML VIAL IV PUSH (12:18)
[2024-08-19] MEDS: SODIUM CHLORIDE 0.9% IV 1,000 ML 999 ML IV CONT ×2 (12:19→14:30)
--- NOTE | 2024-08-19 14:20 | PM.IMHP ---
H&P: HPI History of Present Illness Date/Time: 08/19/24 14:20 Chief Complaint: Blood in Stool Narrative: 64 y/o M presents here with blood in his stool with PMH of CAD, diabetes, HTN, GERD, hypothyroidism, NH, JULIANNE, sleep apnea. The patient presents here from home for further evaluation of blood in his stool. First blood tinged diarrhea (bright red) episode occurred this morning at 7:30 a.m., has had 3 episodes while at home and 4-5 post-arrival to the hospital. Loose stools began yesterday but were normal in color, however he reports he chronically has loose stools due a side effect of Ozempic. Reports associated abdominal pain he further describes as slight, has resolved, cramping, nonradiating, LLQ, constant and worsens with palpation. The patient is currently on Eliquis. He recently had a colonoscopy on on 08/10/2024 which showed colonic polyps with polypectomy performed and internal hemorrhoids here at [facility]. He reports one episode of BRB post-BM that occurred. Has family history of colon cancer - father, paternal grandmother. No associated fever, chills, or body aches. Initial VS at presentation: 97.8? F, HR 81, RR 16, 82/35, and 97% on RA. ED workup showed: Number acidosis, hemoglobin 11.5 (previously 13.1 on 12/20/2023), INR 1.2, creatinine 1.0 and GFR >60, glucose 160. CT of the abdomen/pelvis showed fluid in in the nondilated small bowel and proximal colon consistent with diarrhea, no other acute intra-abdominal/pelvic process, nonobstructing left nephrolithiasis, and cholelithiasis. Review of Systems Review of Systems: All systems reviewed & are unremarkable except as noted in HPI and below PMFSH Past Medical History Medical History Atherosclerosis Bloating Body mass index (BMI) greater than 50 (01/03/16) CAD (coronary artery disease) Colon polyp Diabetes Diabetic peripheral neuropathy Dyslipidemia Essential (primary) hypertension Gastro-esophageal reflux disease without esophagitis History of PAT (paroxysmal atrial tachycardia) Hypertension Hypothyroidism Hypothyroidism (acquired) Inferior [place] 2004 Male erectile dysfunction, unspecified Metabolic syndrome Morbid obesity with BMI of 45.0-49.9, adult Musculoskeletal pain JULIANNE (obstructive sleep apnea) Pancreatitis Pure hypercholesterolemia Sleep apnea, unspecified on CPAP Type 2 diabetes mellitus without complications Umbilical hernia Surgical History Surgical History History of coronary artery stent placement x5, 2005 Hx of appendectomy Hx of CABG 2004, patient believe 3 vessels Family History Family History Grandparent Family history of cataracts Family history of heart disease in male family member before age 55 Father Carcinoma of colon Family history of hearing loss Patient's father is Mother Family history of coronary artery disease Family history of heart disease in male family member before age 55 Sibling Patient's brother is in good health Social History Social History Smoking status: Never smoker Second hand tobacco smoke exposure: No Alcohol intake: never Drinks per week: 1 Substance use: never Substance use type: does not use Do You Feel Safe in your Home?: Yes Lack of Transportation: No Lack of Food: Never True Current Housing: I Have Housing Concerned About Future Housing: No Difficulty Paying Gas/Electric Bills: No Difficulty Paying for Meds: No Currently Unemployed: No Education: Bachelor's Degree Difficulty w/ Childcare or Family Care: No Living arrangements: with family Additional living arrangements comments: lives with his Occupation/Education: occupation 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 Gender identity (if verbalized by the patient): Male Spiritual care concerns: No Meds Home Medications and Allergies Home Medications Medication Instructions Recorded Confirmed Type carvedilol 12.5 mg tablet 12.5 mg PO Q12H 01/03/20 08/19/24 History furosemide 20 mg tablet 20 mg PO QAM PRN Edema 06/11/21 08/19/24 History apixaban 5 mg tablet (Eliquis) 5 mg PO BID #1 tablet 11/25/23 08/19/24 Rx amlodipine 5 mg-benazepril 20 mg 1 cap PO DAILY #90 caps 01/19/24 08/19/24 Rx capsule blood sugar diagnostic #400 ea 01/19/24 08/10/24 Rx ezetimibe 10 mg tablet (Zetia) 10 mg PO DAILY #90 tabs 01/19/24 08/19/24 Rx insulin regular hum U-500 conc 500 See Rx Instructions .Route 01/19/24 08/19/24 Rx unit/mL(3 mL) subcut pen (Humulin .COMPLEX #48 mL R U-500 (Conc) Insulin Kwikpen) pen needle, diabetic 32 gauge x See Rx Instructions .Route 01/19/24 08/19/24 Rx 5/32 (BD Deya 2nd Gen Pen Needle) .COMPLEX #300 ea ropinirole 1 mg tablet 1 mg PO .QHS #90 tabs 02/06/24 08/19/24 Rx empagliflozin 25 mg tablet 25 mg PO QAM #90 tabs 05/05/24 08/19/24 Rx (Jardiance) semaglutide 2 mg/dose (8 mg/3 mL) 2 mg (0.75 mL) subcut WEEKLY 90 05/26/24 08/19/24 Rx subcutaneous pen injector (Ozempic) days #9 mL clotrimazole-betamethasone 1 1 applic topical BID #45 grams 07/07/24 08/19/24 Rx %-0.05 % topical cream sildenafil (pulm.hypertension) 20 40 - 100 mg PO ONCE PRN sexual 07/07/24 08/19/24 Rx mg tablet activity #50 tabs gabapentin 300 mg capsule 300 mg PO BID #60 caps 07/16/24 08/19/24 Rx glucagon 3 mg/actuation nasal spray 3 mg intranasal ONCE PRN LOW BLOOD 08/04/24 08/19/24 History SUGAR metformin 500 mg tablet,extended 2,000 mg PO DAILY #360 tabs 08/04/24 08/19/24 Rx release 24 hr nitroglycerin 0.4 mg sublingual 0.4 mg sublingual Q5M CHEST PAIN 08/04/24 08/19/24 History tablet (Nitrostat) ranolazine 500 mg tablet,extended 500 mg PO DAILY 08/04/24 08/19/24 History release,12 hr atorvastatin 80 mg tablet 80 mg PO HS 08/19/24 08/19/24 History clopidogrel 75 mg tablet 75 mg PO DAILY 08/19/24 08/19/24 History levothyroxine 88 mcg tablet 88 mcg PO DAILY 08/19/24 08/19/24 History omeprazole 20 mg capsule,delayed 20 mg PO HS 08/19/24 08/19/24 History release Allergies Allergy/AdvReac Type Severity Reaction Status Date / Time No Known Allergies Allergy Verified 08/10/24 08:27 Vital Signs Vital Signs - 24 hr 08/19/24 10:30 08/19/24 11:10 08/19/24 11:17 Temperature 97.8 F Pulse Rate 81 80 80 Respiratory Rate 16 13 13 Blood Pressure 82/35 L 111/65 98/57 L Pulse Oximetry 97 95 96 08/19/24 12:31 08/19/24 13:01 Temperature Pulse Rate 82 77 Respiratory Rate 16 20 Blood Pressure 105/53 L 100/50 L Pulse Oximetry 97 98 Exam Const: General: comfortable and no acute distress Other: , male, nontoxic appearance HENMT: Face/Nose/Sinus: Normal nares present Mouth: Yes moist mucous membranes Eyes: General: appearance normal, both eyes and all related structures Sclera: sclerae normal Pupils: Equal, round and reactive pupils present EOM: EOMs intact bilaterally Resp: Effort & Inspection: normal respiratory effort Auscultation: clear to auscultation bilaterally Cardio: Rate: regular rate Rhythm: regular rhythm Other: S1-S2 present without murmur, rub, ectopy GI: Other: Abdomen rounded, soft, nontender. Hyperactive bowel sounds in all quadrants. Skin: General skin exam: normal color and no rashes or lesions noted Wounds: no wounds Neuro: Speech: normal speech Motor exam (neuro): 5/5 motor strength present throughout Sensory Exam: normal sensation Other: A&O x4 Extrem: General: normal to inspection Psych: Mental Status: mental status grossly normal Affect: normal affect Other: Good insight and judgment, pleasant H&P: Results Labs Labs: Short CBC 08/19/24 Range/Units 11:05 WBC 9.5 (4.5-10.0) K/mm3 Hgb 11.5 L (14.0-18.0) g/dL Hct 36.9 L (42.0-52.0) % Plt Count 301 (150-375) k/mm3 [facility] 08/19/24 11:05 Sodium 141 Potassium 4.1 Chloride 110 H Carbon Dioxide 20 L BUN 20 Creatinine 1.00 Glucose 160 H Calcium 8.4 Liver Function 08/19/24 Range/Units 11:05 Total Bilirubin 0.6 (0.2-1.3) mg/dL AST 21 (17-59) U/L ALT 27 (6-50) U/L Alkaline Phosphatase 65 (38-126) U/L Albumin 3.4 L (3.5-5.1) g/dL Assessment and Plan Assessment and plan (1) GI bleed: Qualifiers: GI bleed type/associated pathology: unspecified gastrointestinal hemorrhage type Qualified Code(s): K92.2 - Gastrointestinal hemorrhage, unspecified Code(s): K92.2 - Gastrointestinal hemorrhage, unspecified Status: Acute Assessment and Plan: - Hgb 11.5 -> 9.3. previously 13.1 on 12/20/2023. MCV normal, mildly reduced MCHC. - hemoccult was positive - on anticoagulation/antiplatelet: Eliquis and Plavix, held - CT abd/pelvis: 1. Fluid in nondilated normal. Large and small bowel consistent with nonspecific diarrhea. No other acute intra-abdominal/pelvic process. 2. Nonobstructing left nephrolithiasis. 3. Cholelithiasis. - GI consulted, awaiting recs - trend H&H q.4 hours x3 - started on pantoprazole IVP daily - last colonoscopy on 08/10/2024 and showed colonic polyps with polypectomy and internal hemorrhoids - monitor hemodynamic stability and telemetry Given drop in hemoglobin and soft BP, will transfuse 1 unit. Continue to trend H&H. 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 Held Ozempic (NF), metformin, and U-500 Humulin R held on 260u total (NF). U-500 converted to Lantus at 70% of original dose and divided BID for Lantus 90 BID. given how high this dose is and that patient will be NPO at midnight, will cut back to 36 BID of Lantus. - correct regimen ordered - high dose TIDWM, based off BMI - A1C 6.4% in 2020, update (3) Hypertension: Qualifiers: Hypertension type: primary hypertension Qualified Code(s): I10 - Essential (primary) hypertension Code(s): I10 - Essential (primary) hypertension Status: Chronic Assessment and Plan: - chronic, currently 99/58 - home medications: hold amlodipine-benazepril, carvedilol - monitor (4) JULIANNE (obstructive sleep apnea): Code(s): G47.33 - Obstructive sleep apnea (adult) (pediatric) Status: Chronic Assessment and Plan: - continue home CPAP Plan Diet: Clear liquids, NPO at midnight GI Prophylaxis: Pantoprazole IVP DVT Prophylaxis: Hold Eliquis, started on SCDs Lines: Peripheral Code Status: Full code Quality VTE Prophylaxis VTE prophylaxis: mechanical ordered Hospitalist MIPS Advance Care Plan I have confirmed that the patient's Advanced Care Plan is present, code status is documented, or surrogate decision maker is listed in patient medical record.: Yes Medication Reconciliation I have utilized all available resources to obtain, update and review the patients current medications (includes all prescriptions, OTC, herbals, cannabis, and nutritional supplements).: Yes
[2024-08-19 16:03] LABS: Glucose Point of Care 164 mg/dl (65-105)
[2024-08-19 16:11] LABS: Hematocrit 29.8 % (42.0-52.0); Hemoglobin 9.3 g/dL (14.0-18.0)
[2024-08-19] MEDS: SODIUM CHLORIDE 0.9% IV 250 ML 30 ML IV CONT (17:28)
[2024-08-19] MEDS: TUBING, BLOOD PLUM PUMP TUBING 1 EACH XX (17:32)
[2024-08-19] MEDS: polyethylene glycoL 3350 238 GM BOTTLE PO (18:28)
--- NOTE | 2024-08-19 18:59 | WPDGICN ---
Assessment and Plan Assessment and plan (1) GI bleed: Qualifiers: GI bleed type/associated pathology: unspecified gastrointestinal hemorrhage type Qualified Code(s): K92.2 - Gastrointestinal hemorrhage, unspecified Code(s): K92.2 - Gastrointestinal hemorrhage, unspecified Status: Acute Assessment and Plan: The patient's most likely cause of lower GI hemorrhage is post polypectomy bleeding. I will order colonoscopy prep tonight and early tomorrow morning for colonoscopy after noon. Dr. Young aware and agreed with plan. (2) Colon polyp: Code(s): K63.5 - Polyp of colon Status: Acute GI Consult Note Consult date/time: 08/19/24 18:59 Reason for consult: Lower GI bleeding HPI: Jesús Zhao is a 64 year old male who underwent colonoscopy and polypectomy on 08/10/2024. One of the polyps, her located in the right colon measured 1.8 cm and was resected and subsequently the polypectomy site was clipped. However, early this morning the patient started to have massive passes of maroon stools and decided to come to the emergency room. His hemoglobin dropped to 9 grams/deciliter and he is getting his 2nd unit of packed red blood cells. [facility] Past Medical History Medical History Atherosclerosis Bloating Body mass index (BMI) greater than 50 (01/03/16) CAD (coronary artery disease) Colon polyp Diabetes Diabetic peripheral neuropathy Dyslipidemia Essential (primary) hypertension Gastro-esophageal reflux disease without esophagitis History of PAT (paroxysmal atrial tachycardia) Hypertension Hypothyroidism Hypothyroidism (acquired) Inferior [place] 2004 Male erectile dysfunction, unspecified Metabolic syndrome Morbid obesity with BMI of 45.0-49.9, adult Musculoskeletal pain JULIANNE (obstructive sleep apnea) Pancreatitis Pure hypercholesterolemia Sleep apnea, unspecified on CPAP Type 2 diabetes mellitus without complications Umbilical hernia Surgical History Surgical History History of coronary artery stent placement x5, 2005 Hx of appendectomy Hx of CABG 2005, patient believe 3 vessels Family History Family History Grandparent Family history of cataracts Family history of heart disease in male family member before age 55 Father Carcinoma of colon Family history of hearing loss Patient's father is Mother Family history of coronary artery disease Family history of heart disease in male family member before age 55 Sibling Patient's brother is in good health Social History Social History Smoking status: Never smoker Second hand tobacco smoke exposure: No Alcohol intake: never Drinks per week: 1 Substance use: never Substance use type: does not use Do You Feel Safe in your Home?: Yes Lack of Transportation: No Lack of Food: Never True Current Housing: I Have Housing Concerned About Future Housing: No Difficulty Paying Gas/Electric Bills: No Difficulty Paying for Meds: No Currently Unemployed: No Education: Bachelor's Degree Difficulty w/ Childcare or Family Care: No Living arrangements: with family Additional living arrangements comments: lives with his Occupation/Education: occupation 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 Gender identity (if verbalized by the patient): Male Spiritual care concerns: No Meds Home Medications and Allergies Home Medications Medication Instructions Recorded Confirmed Type carvedilol 12.5 mg tablet 12.5 mg PO Q12H 01/03/20 08/19/24 History furosemide 20 mg tablet 20 mg PO QAM PRN Edema 06/11/21 08/19/24 History apixaban 5 mg tablet (Eliquis) 5 mg PO BID #1 tablet 11/25/23 08/19/24 Rx amlodipine 5 mg-benazepril 20 mg 1 cap PO DAILY #90 caps 01/19/24 08/19/24 Rx capsule blood sugar diagnostic #400 ea 01/19/24 08/10/24 Rx ezetimibe 10 mg tablet (Zetia) 10 mg PO DAILY #90 tabs 01/19/24 08/19/24 Rx insulin regular hum U-500 conc 500 See Rx Instructions .Route 01/19/24 08/19/24 Rx unit/mL(3 mL) subcut pen (Humulin .COMPLEX #48 mL R U-500 (Conc) Insulin Kwikpen) pen needle, diabetic 32 gauge x See Rx Instructions .Route 01/19/24 08/19/24 Rx 5/32 (BD Deya 2nd Gen Pen Needle) .COMPLEX #300 ea ropinirole 1 mg tablet 1 mg PO .QHS #90 tabs 02/06/24 08/19/24 Rx empagliflozin 25 mg tablet 25 mg PO QAM #90 tabs 05/05/24 08/19/24 Rx (Jardiance) semaglutide 2 mg/dose (8 mg/3 mL) 2 mg (0.75 mL) subcut WEEKLY 90 05/26/24 08/19/24 Rx subcutaneous pen injector (Ozempic) days #9 mL clotrimazole-betamethasone 1 1 applic topical BID #45 grams 07/07/24 08/19/24 Rx %-0.05 % topical cream sildenafil (pulm.hypertension) 20 40 - 100 mg PO ONCE PRN sexual 07/07/24 08/19/24 Rx mg tablet activity #50 tabs gabapentin 300 mg capsule 300 mg PO BID #60 caps 07/16/24 08/19/24 Rx glucagon 3 mg/actuation nasal spray 3 mg intranasal ONCE PRN LOW BLOOD 08/04/24 08/19/24 History SUGAR metformin 500 mg tablet,extended 2,000 mg PO DAILY #360 tabs 08/04/24 08/19/24 Rx release 24 hr nitroglycerin 0.4 mg sublingual 0.4 mg sublingual Q5M CHEST PAIN 08/04/24 08/19/24 History tablet (Nitrostat) ranolazine 500 mg tablet,extended 500 mg PO DAILY 08/04/24 08/19/24 History release,12 hr atorvastatin 80 mg tablet 80 mg PO HS 08/19/24 08/19/24 History clopidogrel 75 mg tablet 75 mg PO DAILY 08/19/24 08/19/24 History levothyroxine 88 mcg tablet 88 mcg PO DAILY 08/19/24 08/19/24 History omeprazole 20 mg capsule,delayed 20 mg PO HS 08/19/24 08/19/24 History release Allergies Allergy/AdvReac Type Severity Reaction Status Date / Time No Known Allergies Allergy Verified 08/10/24 08:27 Vital Signs Vital Signs - 24 hr 08/19/24 10:30 08/19/24 11:10 08/19/24 11:17 Temperature 97.8 F Pulse Rate 81 80 80 Respiratory Rate 16 13 13 Blood Pressure 82/35 L 111/65 98/57 L Pulse Oximetry 97 95 96 Oxygen Delivery 08/19/24 12:31 08/19/24 13:01 08/19/24 14:18 Temperature Pulse Rate 82 77 78 Respiratory Rate 16 20 16 Blood Pressure 105/53 L 100/50 L 99/58 L Pulse Oximetry 97 98 98 Oxygen Delivery 08/19/24 15:15 08/19/24 15:19 08/19/24 16:00 Temperature 97.9 F 97.4 F L Pulse Rate 74 74 77 Respiratory Rate 20 18 Blood Pressure 92/66 L 92/66 L Pulse Oximetry 98 97 Oxygen Delivery 08/19/24 17:22 08/19/24 16:00 08/19/24 17:43 Temperature 97.4 F L 97.9 F Pulse Rate 81 81 81 Respiratory Rate 16 16 15 Blood Pressure 110/56 L 115/49 L Pulse Oximetry 100 100 98 Oxygen Delivery Room Air 08/19/24 18:00 08/19/24 18:43 08/19/24 15:25 Temperature 97.9 F 97.4 F L Pulse Rate 95 86 74 Respiratory Rate 18 18 Blood Pressure 123/75 92/66 L Pulse Oximetry 98 97 Oxygen Delivery Results Labs 08/19/24 16:06 08/19/24 11:05 Labs: Short CBC 08/19/24 08/19/24 Range/Units 11:05 16:06 WBC 9.5 (4.5-10.0) K/mm3 Hgb 11.5 L 9.3 L (14.0-18.0) g/dL Hct 36.9 L 29.8 L (42.0-52.0) % Plt Count 301 (150-375) k/mm3 BMP 08/19/24 11:05 Sodium 141 Potassium 4.1 Chloride 110 H Carbon Dioxide 20 L BUN 20 Creatinine 1.00 Glucose 160 H Calcium 8.4 Liver Function 08/19/24 Range/Units 11:05 Total Bilirubin 0.6 (0.2-1.3) mg/dL AST 21 (17-59) U/L ALT 27 (6-50) U/L Alkaline Phosphatase 65 (38-126) U/L Albumin 3.4 L (3.5-5.1) g/dL
[2024-08-19 20:41] LABS: Glucose Point of Care 194 mg/dl (65-105)
[2024-08-19] MEDS: GABAPENTIN 300 MG CAPSULE PO (20:48)
[2024-08-19] MEDS: ATORVASTATIN 40 MG TABLET 80 MG PO (20:48)
[2024-08-19] MEDS: rOPINIRole HCL 1 MG TABLET PO (20:48)
[2024-08-19] MEDS: ONDANSETRON INJ 4 MG/2 ML VIAL IV PUSH (20:48)
[2024-08-19 21:17] LABS: Hematocrit 36.8 % (42.0-52.0); Hemoglobin 10.6 g/dL (14.0-18.0)
[2024-08-19] MEDS: BETAMETHASONE/CLOTRIMAZOLE CREAM 15 GM TUBE 1 APPLIC TOPICAL (22:23)
[2024-08-20] VITALS (29 sets, daily range): BP systolic 109–158; BP diastolic 51–92; PULSE 87–108; RESP 9–27; TEMP 36.2–37.2; O2SAT 94–100; BMI 42.9
[2024-08-20] MEDS: ONDANSETRON INJ 4 MG/2 ML VIAL IV PUSH ×3 (00:18→13:39)
[2024-08-20 01:05] LABS: Hematocrit 29.9 % (42.0-52.0); Hemoglobin 9.5 g/dL (14.0-18.0)
[2024-08-20] MEDS: LEVOTHYROXINE SODIUM 88 MCG TABLET PO (05:26)
[2024-08-20] MEDS: polyethylene glycoL 3350 238 GM BOTTLE PO (05:26)
[2024-08-20 05:52] LABS: Alanine Aminotransferase 19 U/L (6-50); Albumin Level 2.7 g/dL (3.5-5.1); Alkaline Phosphatase 48 U/L (38-126); Anion Gap 8 mmol/L (4-12); Aspartate Amino Transferase 16 U/L (17-59); Bilirubin,Total 0.6 mg/dL (0.2-1.3); Blood Urea Nitrogen 19 mg/dL (9-20); Calcium 7.6 mg/dL (8.4-10.2); Carbon Dioxide 22 mmol/L (22-30); Chloride 110 mmol/L (98-107); Estimated CRCL calculation 76 ml/min; Estimated Glomerular Filt Rate > 60; Glucose 145 mg/dL (65-110); Potassium 4.1 mmol/L (3.4-5.0); Sodium 140 mmol/L (137-145)
[2024-08-20 06:14] LABS: Basophils Percent Auto 0.2 % (0.2-1.2); Eosinophils Percent Auto 0.1 % (0-4.4); Hematocrit 27.3 % (42.0-52.0); Hemoglobin 8.2 g/dL (14.0-18.0); Immature Granulocyte Absolute 0.04 K/mm3 (0.00-0.031); Immature Granulocyte Percent A 0.5 % (0-0.5); Lymphocytes Percent Auto 18.2 % (18.3-44.2); Mean Corpuscular Volume 83.2 fl (80-100); Mean Platelet Volume 9.9 fl (7.4-10.4); Monocytes Absolute Auto 0.4 K/mm3 (0.1-0.6); Monocytes Percent Auto 4.9 % (2.6-8.5); Neutrophils Absolute Auto 6.7 K/mm3 (1.3-6.7); Neutrophils Percent Auto 76.1 % (45.5-73.1); Platelet Count Result 333 k/mm3 (150-375); Red Blood Count 3.28 M/mm3 (4.6-6.20); Red Cell Distribution Width 18.5 % (11.5-14.5); White Blood Count 8.8 K/mm3 (4.5-10.0)
[2024-08-20 08:00] LABS: Glucose Point of Care 168 mg/dl (65-105)
[2024-08-20] MEDS: RANOLAZINE 500 MG TAB.ER.12H PO (08:37)
[2024-08-20] MEDS: GABAPENTIN 300 MG CAPSULE PO ×2 (08:37→16:17)
[2024-08-20] MEDS: PANTOPRAZOLE SODIUM IV 40 MG VIAL IV PUSH (08:37)
[2024-08-20] MEDS: EZETIMIBE 10 MG TABLET PO (08:38)
--- NOTE | 2024-08-20 08:39 | P.PNIM_ITS ---
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 Code(s): E11.9 - Type 2 diabetes mellitus without complications Status: Chronic (3) Hypothyroidism: Qualifiers: Hypothyroidism type: acquired Qualified Code(s): E03.9 - Hy pothyroidism, unspecified Code(s): E03.9 - Hypothyroidism, unspecified Status: Acute (4) Hypertension: Qualifiers: Hypertension type: primary hypertension Qualified Code(s): I10 - Essential (primary) hypertension Code(s): I10 - Essential (primary) hypertension Status: Chronic (5) JULIANNE (obstructive sleep apnea): Code(s): G47.33 - Obstructive sleep apnea (adult) (pediatric) Status: Chronic Plan Acute GI bleed: Qualifiers: GI bleed type/associated pathology: unspecified gastrointestinal hemorrhage type Qualified Code(s): K92.2 - Gastrointestinal hemorrhage, unspecified Code(s): K92.2 - Gastrointestinal hemorrhage, unspecified Status: Acute Assessment and Plan: - Hgb 11.5 -> 9.3. previously 13.1 on 12/20/2023. MCV normal, mildly reduced MCHC. - hemoccult was positive - on anticoagulation/antiplatelet: Eliquis and Plavix, held - CT abd/pelvis: 1. Fluid in nondilated normal. Large and small bowel consistent with nonspecific diarrhea. No other acute intra-abdominal/pelvic process. 2. Nonobstructing left nephrolithiasis. 3. Cholelithiasis. - GI consulted, plans colonoscopy today Acute on chronic blood-loss anemia Hemoglobin 13.1 December 19, 2021 - trend H&H q.4 hours x3 - started on pantoprazole IVP daily - last colonoscopy on 08/10/2024 and showed colonic polyps with polypectomy and internal hemorrhoids - monitor hemodynamic stability and telemetry Given drop in hemoglobin and soft BP, will transfuse 1 unit. Continue to trend H&H. Follow-up ferritin and iron Paroxysmal AFib Patient has sinus rhythm now Hold Eliquis because of active bleeding Acquired hypothyroidism Continue Synthroid 88 mcg daily p.o. 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 Held Ozempic (NF), metformin, and U-500 Humulin R held on 260u total (NF). U-500 converted to Lantus at 70% of original dose and divided BID for Lantus 90 BID. given how high this dose is and that patient will be NPO at midnight, will cut back to 36 BID of Lantus. - correct regimen ordered - high dose TIDWM, based off BMI - A1C 6.4% in 2020, update Hypertension: Qualifiers: Hypertension type: primary hypertension Qualified Code(s): I10 - Essential (primary) hypertension Code(s): I10 - Essential (primary) hypertension Status: Chronic Assessment and Plan: - chronic, currently 99/58 - home medications: hold amlodipine-benazepril, carvedilol - monitor JULIANNE (obstructive sleep apnea): Code(s): G47.33 - Obstructive sleep apnea (adult) (pediatric) Status: Chronic Assessment and Plan: - continue home CPAP Subjective Date/time seen: 08/20/24 08:39 Interval history: Patient is afebrile, blood pressure stable, stat cardiac tachypnea, labs reviewed, hemoglobin 8.2, patient has a general weakness, intermittent lightheadedness with walking, and also has exertional shortness breath. Patient denies chest pain, abdomen pain, nausea vomiting black stools Exam Narrative: GENERAL: Pleasant, in no acute distress. Well-nourished. - EYES: EOMI. Anicteric. Pale - HENT: Moist mucous membranes. - LUNGS: Clear to auscultation bilateral ly, no wheezing, rhonchi, or rales. - CARDIOVASCULAR: Regular rate and rhyth m. No murmur. No JVD. - ABDOMEN: Soft, non-tender and non-dist ended. No palpable masses. - EXTREMITIES: No edema. Peripheral puls es 2+. Non-tender. - NEUROLOGIC: No focal neurological defi cits. CN II-XII grossly intact. General weakness - PSYCHIATRIC: Awake, Alert and oriented x 3. Appropriate mood and affect. - SKIN: No rashes or lesions. Warm. - LYMPH: No cervical lymphadenopathy. Objective Data Vital Signs Vital Signs: Vital Signs - 24 hr 08/19/24 10:30 08/19/24 11:10 08/19/24 11:17 Temperature 97.8 F Pulse Rate 81 80 80 Respiratory Rate 16 13 13 Blood Pressure 82/35 L 111/65 98/57 L Pulse Oximetry 97 95 96 Oxygen Delivery 08/19/24 12:31 08/19/24 13:01 08/19/24 14:18 Temperature Pulse Rate 82 77 78 Respiratory Rate 16 20 16 Blood Pressure 105/53 L 100/50 L 99/58 L Pulse Oximetry 97 98 98 Oxygen Delivery 08/19/24 15:15 08/19/24 15:19 08/19/24 16:00 Temperature 97.9 F 97.4 F L Pulse Rate 74 74 77 Respiratory Rate 20 18 Blood Pressure 92/66 L 92/66 L Pulse Oximetry 98 97 Oxygen Delivery 08/19/24 17:22 08/19/24 16:00 08/19/24 17:43 Temperature 97.4 F L 97.9 F Pulse Rate 81 81 81 Respiratory Rate 16 16 15 Blood Pressure 110/56 L 115/49 L Pulse Oximetry 100 100 98 Oxygen Delivery Room Air 08/19/24 18:00 08/19/24 18:43 08/19/24 19:05 Temperature 97.9 F 98.6 F Pulse Rate 95 86 87 Respiratory Rate 18 16 Blood Pressure 123/75 107/52 L Pulse Oximetry 98 98 Oxygen Delivery 08/19/24 19:53 08/19/24 20:05 08/19/24 20:00 Temperature 97.6 F Pulse Rate 87 85 73 Respiratory Rate 16 18 Blood Pressure 98/42 L Pulse Oximetry 98 100 Oxygen Delivery Room Air 08/19/24 22:00 08/20/24 00:00 08/20/24 00:00 Temperature Pulse Rate 90 90 87 Respiratory Rate 18 Blood Pressure Pulse Oximetry 100 Oxygen Delivery Room Air 08/20/24 00:41 08/20/24 00:20 08/20/24 02:00 Temperature 97.8 F Pulse Rate 91 89 Respiratory Rate 18 9 L Blood Pressure 128/68 Pulse Oximetry 99 96 Oxygen Delivery Autopap 08/20/24 03:52 08/20/24 04:00 08/20/24 04:37 Temperature 97.7 F Pulse Rate 89 91 97 Respiratory Rate 18 18 Blood Pressure 111/64 Pulse Oximetry 99 98 Oxygen Delivery Autopap 08/20/24 06:00 08/20/24 08:00 08/19/24 15:25 Temperature 98.1 F 97.4 F L Pulse Rate 97 102 H 74 Respiratory Rate 20 18 Blood Pressure 135/66 92/66 L Pulse Oximetry 98 97 Oxygen Delivery Intake/Output Intake/Output: Intake & Output 08/17/24 08/18/24 08/19/24 08/20/24 23:59 23:59 23:59 23:59 Intake Total 2770 1920 Output Total 800 400 Balance 1970 1520 Meds/Results Medications: Active Medications Generic Name Dose Route Start Last Admin Trade Name Freq PRN Reason Stop Dose Admin Atorvastatin Calcium 80 mg 08/19/24 21:00 08/19/24 20:48 Atorvastatin 40 Mg Tablet PO 80 mg HS HEIKE Administration Clotrimazole 1 applic 08/19/24 18:55 08/19/24 22:23 Betamethasone/Clotrimazole Cream 15 Gm Tube TOPICAL 1 applic BID HEIKE Administration Dextrose 12.5 gm 08/19/24 14:31 Dextrose 50% 25 Gm/50 Ml Syringe IV PUSH PRN PRN Hypoglycemia Protocol Ezetimibe 10 mg 08/20/24 09:00 08/20/24 08:38 Ezetimibe 10 Mg Tablet PO 10 mg DAILY HEIKE Administration Empagliflozin 25 mg 08/20/24 09:00 08/20/24 08:31 Empagliflozin 25 Mg Tablet PO Not Given QAM HEIKE Furosemide 20 mg 08/20/24 08:35 Furosemide 20 Mg Tablet PO QAM HEIKE Gabapentin 300 mg 08/19/24 18:55 08/20/24 08:37 Gabapentin 300 Mg Capsule PO 300 mg BID HEIKE Administration Glucagon 1 mg 08/19/24 14:31 Glucagon For Inj 1 Mg Vial IM PRN PRN Hypoglycemia Protocol Glucose 15 gm 08/19/24 14:31 Glucose Oral Gel 15 Gm Of Glucse In 37.5 Gm Tube PO PRN PRN Hypoglycemia Protocol Dextrose 1,000 mls @ 100 mls/hr 08/19/24 14:31 Dextrose 5% 1,000 Ml IVPB PRN PRN Hypoglycemia Protocol Insulin Aspart 4 - 8 units 08/19/24 17:00 08/20/24 08:29 Insulin Aspart (*Bkc) 100 Units/Ml SUB-Q Not Given TIDWM [facility] Protocol Insulin Glargine 36 units 08/20/24 21:00 Insulin Glargine (*Bkc) 100 Units/Ml SUB-Q Q12HR [facility] Levothyroxine Sodium 88 mcg 08/20/24 06:30 08/20/24 05:26 Levothyroxine Sodium 88 Mcg Tablet PO 88 mcg DAILY@0630 HEIKE Administration Ondansetron HCl 4 mg 08/19/24 20:30 08/20/24 05:50 Ondansetron Inj 4 Mg/2 Ml Vial IV PUSH 4 mg Q6H PRN Administration Nausea And Vomiting Pantoprazole Sodium 40 mg 08/20/24 09:00 08/20/24 08:37 Pantoprazole Sodium Iv 40 Mg Vial IV PUSH 40 mg QAM HEIKE Administration Ranolazine 500 mg 08/20/24 09:00 08/20/24 08:37 Ranolazine 500 Mg Tab.Er.12h PO 500 mg DAILY HEIKE Administration Ropinirole HCl 1 mg 08/19/24 21:00 08/19/24 20:48 Ropinirole Hcl 1 Mg Tablet PO 1 mg HS HEIKE Administration Radiology Results: ITS Impressions Abdomen/Pelvis CT 08/19/24 12:11 IMPRESSION: 1. Fluid in nondilated normal. Large and small bowel consistent with nonspecific diarrhea. No other acute intra-abdominal/pelvic process. 2. Nonobstructing left nephrolithiasis. 3. Cholelithiasis. Labs Labs: Laboratory Results - last 24 hr 08/19/24 08/19/24 08/19/24 11:05 15:24 16:06 WBC 9.5 RBC 4.53 L Hgb 11.5 L 9.3 L Hct 36.9 L 29.8 L MCV 81.5 MCH 25.4 L MCHC 31.2 L RDW 17.6 H Plt Count 301 MPV 9.3 Immature Gran % (Auto) 0.5 Neut % (Auto) 79.4 H Lymph % (Auto) 10.6 L [place] % (Auto) 7.5 Eos % (Auto) 1.6 Baso % (Auto) 0.4 Lymph # (Auto) 1.00 [place] # (Auto) 0.7 H Eos # (Auto) 0.2 Baso # (Auto) 0.0 Abs Immat Gran (auto) 0.05 H Absolute Neuts (auto) 7.5 H Absolute Nucleated RBC 0.000 Nucleated RBC % 0.0 PT 15.1 H INR 1.2 APTT 27.1 Sodium 141 Potassium 4.1 Chloride 110 H Carbon Dioxide 20 L Anion Gap 11 BUN 20 Creatinine 1.00 Estim Creat Clear Calc 76 Estimated GFR > 60 Glucose 160 H POC Capillary Glucose 164 H Hemoglobin A1c Calcium 8.4 Total Bilirubin 0.6 AST 21 ALT 27 Alkaline Phosphatase 65 Total Protein 6.0 L Albumin 3.4 L Blood Type O Positive Antibody Screen Negative Crossmatch See Detail 08/19/24 08/19/24 08/20/24 20:31 21:13 01:00 WBC RBC Hgb 10.6 L 9.5 L Hct 36.8 L 29.9 L MCV MCH MCHC RDW Plt Count MPV Immature Gran % (Auto) Neut % (Auto) Lymph % (Auto) [place] % (Auto) Eos % (Auto) Baso % (Auto) Lymph # (Auto) [place] # (Auto) Eos # (Auto) Baso # (Auto) Abs Immat Gran (auto) Absolute Neuts (auto) Absolute Nucleated RBC Nucleated RBC % PT INR APTT Sodium Potassium Chloride Carbon Dioxide Anion Gap BUN Creatinine Estim Creat Clear Calc Estimated GFR Glucose POC Capillary Glucose 194 H Hemoglobin A1c Calcium Total Bilirubin AST ALT Alkaline Phosphatase Total Protein Albumin Blood Type Antibody Screen Crossmatch 08/20/24 08/20/24 05:04 07:53 WBC 8.8 RBC 3.28 L Hgb 8.2 L Hct 27.3 L MCV 83.2 MCH 25.0 L MCHC 30.0 L RDW 18.5 H Plt Count 333 MPV 9.9 Immature Gran % (Auto) 0.5 Neut % (Auto) 76.1 H Lymph % (Auto) 18.2 L [place] % (Auto) 4.9 Eos % (Auto) 0.1 Baso % (Auto) 0.2 Lymph # (Auto) 1.60 [place] # (Auto) 0.4 Eos # (Auto) 0.0 Baso # (Auto) 0.0 Abs Immat Gran (auto) 0.04 H Absolute Neuts (auto) 6.7 Absolute Nucleated RBC 0.000 Nucleated RBC % 0.0 PT INR APTT Sodium 140 Potassium 4.1 Chloride 110 H Carbon Dioxide 22 Anion Gap 8 BUN 19 Creatinine 1.00 Estim Creat Clear Calc 76 Estimated GFR > 60 Glucose 145 H POC Capillary Glucose 168 H Hemoglobin A1c 6.0 H Calcium 7.6 L Total Bilirubin 0.6 AST 16 L ALT 19 Alkaline Phosphatase 48 Total Protein 5.0 L Albumin 2.7 L Blood Type Antibody Screen Crossmatch
[2024-08-20] MEDS: BETAMETHASONE/CLOTRIMAZOLE CREAM 15 GM TUBE 1 APPLIC TOPICAL ×2 (08:41→16:19)
[2024-08-20 09:43] LABS: Iron 22 ug/dL (49-181)
[2024-08-20 09:52] LABS: Percent Iron Saturation 8 % (20-50)
[2024-08-20 10:19] LABS: Ferritin 7.38 ng/mL (11.1-264)
[2024-08-20 12:59] LABS: Glucose Point of Care 176 mg/dl (65-105)
--- NOTE | 2024-08-20 13:55 | PC.NURSE ---
Pt left the floor for colonoscopy.
--- NOTE | 2024-08-20 14:12 | WPDANESEPPF ---
Anes - Initial Pre Proc Eval Procedure: Operation Date: 08/20/24 15:30 Proposed Procedures p Colonoscopy - Levi Ling MD Date/Time: 08/20/24 14:12 Surgeon: Tl Suarez MD Pre Op Diagnosis: Blood Per Rectum/Abdominal Pain Patient Data Age: 64 Gender: M Height: 1.65 m Weight: 117 kg Last Vital Signs Temp 36.2 C L 08/20/24 14:05 Pulse 106 H 08/20/24 14:05 Resp 18 08/20/24 14:05 BP 133/75 08/20/24 14:05 Pulse Ox 100 08/20/24 14:05 O2 Del Method Room Air 08/20/24 14:05 Allergies Allergy/AdvReac Type Severity Reaction Status Date / Time No Known Allergies Allergy Verified 08/20/24 14:07 Home Medications Medication Instructions Recorded Confirmed Type carvedilol 12.5 mg tablet 12.5 mg PO Q12H 01/03/20 08/20/24 History furosemide 20 mg tablet 20 mg PO QAM PRN Edema 06/11/21 08/20/24 History apixaban 5 mg tablet (Eliquis) 5 mg PO BID #1 tablet 11/25/23 08/20/24 Rx amlodipine 5 mg-benazepril 20 mg 1 cap PO DAILY #90 caps 01/19/24 08/20/24 Rx capsule blood sugar diagnostic #400 ea 01/19/24 08/20/24 Rx ezetimibe 10 mg tablet (Zetia) 10 mg PO DAILY #90 tabs 01/19/24 08/20/24 Rx insulin regular hum U-500 conc 500 See Rx Instructions .Route 01/19/24 08/20/24 Rx unit/mL(3 mL) subcut pen (Humulin .COMPLEX #48 mL R U-500 (Conc) Insulin Kwikpen) pen needle, diabetic 32 gauge x See Rx Instructions .Route 01/19/24 08/20/24 Rx 5/32 (BD Deya 2nd Gen Pen Needle) .COMPLEX #300 ea ropinirole 1 mg tablet 1 mg PO .QHS #90 tabs 02/06/24 08/20/24 Rx empagliflozin 25 mg tablet 25 mg PO QAM #90 tabs 05/05/24 08/20/24 Rx (Jardiance) semaglutide 2 mg/dose (8 mg/3 mL) 2 mg (0.75 mL) subcut WEEKLY 90 05/26/24 08/20/24 Rx subcutaneous pen injector (Ozempic) days #9 mL clotrimazole-betamethasone 1 1 applic topical BID #45 grams 07/07/24 08/20/24 Rx %-0.05 % topical cream sildenafil (pulm.hypertension) 20 40 - 100 mg PO ONCE PRN sexual 07/07/24 08/20/24 Rx mg tablet activity #50 tabs gabapentin 300 mg capsule 300 mg PO BID #60 caps 07/16/24 08/20/24 Rx glucagon 3 mg/actuation nasal spray 3 mg intranasal ONCE PRN LOW BLOOD 08/04/24 08/20/24 History SUGAR metformin 500 mg tablet,extended 2,000 mg PO DAILY #360 tabs 08/04/24 08/20/24 Rx release 24 hr nitroglycerin 0.4 mg sublingual 0.4 mg sublingual Q5M CHEST PAIN 08/04/24 08/20/24 History tablet (Nitrostat) ranolazine 500 mg tablet,extended 500 mg PO DAILY 08/04/24 08/20/24 History release,12 hr atorvastatin 80 mg tablet 80 mg PO HS 08/19/24 08/20/24 History clopidogrel 75 mg tablet 75 mg PO DAILY 08/19/24 08/20/24 History levothyroxine 88 mcg tablet 88 mcg PO DAILY 08/19/24 08/20/24 History omeprazole 20 mg capsule,delayed 20 mg PO HS 08/19/24 08/20/24 History release Laboratory Tests 08/19/24 08/19/24 08/19/24 11:05 15:24 16:06 WBC RBC Hgb 9.3 L g/dL (14.0-18.0) Hct 29.8 L % (42.0-52.0) MCV MCH MCHC RDW Plt Count MPV Immature Gran % (Auto) Neut % (Auto) Lymph % (Auto) Buchanan % (Auto) Eos % (Auto) Baso % (Auto) Lymph # (Auto) [place]anan # (Auto) Eos # (Auto) Baso # (Auto) Abs Immat Gran (auto) Absolute Neuts (auto) Absolute Nucleated RBC Nucleated RBC % Sodium Potassium Chloride Carbon Dioxide Anion Gap BUN Creatinine Estim Creat Clear Calc Estimated GFR Glucose POC Capillary Glucose 164 H mg/dl (65-105) Hemoglobin A1c Calcium Iron TIBC % Saturation Ferritin Total Bilirubin AST ALT Alkaline Phosphatase Total Protein Albumin Blood Type O Positive Antibody Screen Negative Crossmatch See Detail 08/19/24 08/19/24 08/20/24 20:31 21:13 01:00 WBC RBC Hgb 10.6 L g/dL 9.5 L g/dL (14.0-18.0) (14.0-18.0) Hct 36.8 L % 29.9 L % (42.0-52.0) (42.0-52.0) MCV MCH MCHC RDW Plt Count MPV Immature Gran % (Auto) Neut % (Auto) Lymph % (Auto) Buchanan % (Auto) Eos % (Auto) Baso % (Auto) Lymph # (Auto) Buchanan # (Auto) Eos # (Auto) Baso # (Auto) Abs Immat Gran (auto) Absolute Neuts (auto) Absolute Nucleated RBC Nucleated RBC % Sodium Potassium Chloride Carbon Dioxide Anion Gap BUN Creatinine Estim Creat Clear Calc Estimated GFR Glucose POC Capillary Glucose 194 H mg/dl (65-105) Hemoglobin A1c Calcium Iron TIBC % Saturation Ferritin Total Bilirubin AST ALT Alkaline Phosphatase Total Protein Albumin Blood Type Antibody Screen Crossmatch 08/20/24 08/20/24 08/20/24 05:04 07:53 12:20 WBC 8.8 K/mm3 (4.5-10.0) RBC 3.28 L M/mm3 (4.6-6.20) Hgb 8.2 L g/dL (14.0-18.0) Hct 27.3 L % (42.0-52.0) MCV 83.2 fl (80-100) MCH 25.0 L pg (26-34) MCHC 30.0 L g/dl (32-36) RDW 18.5 H % (11.5-14.5) Plt Count 333 k/mm3 (150-375) MPV 9.9 fl (7.4-10.4) Immature Gran % (Auto) 0.5 % (0-0.5) Neut % (Auto) 76.1 H % (45.5-73.1) Lymph % (Auto) 18.2 L % (18.3-44.2) Buchanan % (Auto) 4.9 % (2.6-8.5) Eos % (Auto) 0.1 % (0-4.4) Baso % (Auto) 0.2 % (0.2-1.2) Lymph # (Auto) 1.60 K/mm3 (0.9-3.2) Buchanan # (Auto) 0.4 K/mm3 (0.1-0.6) Eos # (Auto) 0.0 K/mm3 (0-0.3) Baso # (Auto) 0.0 K/mm3 (0.0-0.1) Abs Immat Gran (auto) 0.04 H K/mm3 (0.00-0.031) Absolute Neuts (auto) 6.7 K/mm3 (1.3-6.7) Absolute Nucleated RBC 0.000 K/mm3 (0.0-0.012) Nucleated RBC % 0.0 % (0.0-0.2) Sodium 140 mmol/L (137-145) Potassium 4.1 mmol/L (3.4-5.0) Chloride 110 H mmol/L (98-107) Carbon Dioxide 22 mmol/L (22-30) Anion Gap 8 mmol/L (4-12) BUN 19 mg/dL (9-20) Creatinine 1.00 mg/dL (0.7-1.3) Estim Creat Clear Calc 76 ml/min Estimated GFR > 60 (59 - ) Glucose 145 H mg/dL (65-110) POC Capillary Glucose 168 H mg/dl 176 H mg/dl (65-105) (65-105) Hemoglobin A1c 6.0 H % (<5.7) Calcium 7.6 L mg/dL (8.4-10.2) Iron 22 L ug/dL (49-181) TIBC 262 L ug/dL (265-497) % Saturation 8 L % (20-50) Ferritin 7.38 L ng/mL (11.1-264) Total Bilirubin 0.6 mg/dL (0.2-1.3) AST 16 L U/L (17-59) ALT 19 U/L (6-50) Alkaline Phosphatase 48 U/L (38-126) Total Protein 5.0 L g/dL (6.3-8.2) Albumin 2.7 L g/dL (3.5-5.1) Blood Type Antibody Screen Crossmatch Patient hx anesthesia problems: none Family hx anesthesia problems: none Results Review: All pre-operative results and documents have been reviewed as part of the pre-operative evaluation. FOR[facility]LY [facility] Past Medical History Medical History Atherosclerosis Bloating Body mass index (BMI) greater than 50 (01/03/16) CAD (coronary artery disease) Colon polyp Diabetes Diabetic peripheral neuropathy Dyslipidemia Essential (primary) hypertension Gastro-esophageal reflux disease without esophagitis History of PAT (paroxysmal atrial tachycardia) Hypertension Hypothyroidism Hypothyroidism (acquired) Inferior RI 2005 Male erectile dysfunction, unspecified Metabolic syndrome Morbid obesity with BMI of 45.0-49.9, adult Musculoskeletal pain JULIANNE (obstructive sleep apnea) Pancreatitis Pure hypercholesterolemia Sleep apnea, unspecified on CPAP Type 2 diabetes mellitus without complications Umbilical hernia Surgical History Surgical History History of coronary artery stent placement x5, 2005 Hx of appendectomy Hx of CABG 2005, patient believe 3 vessels Family History Family History Grandparent Family history of cataracts Family history of heart disease in male family member before age 55 Father Carcinoma of colon Family history of hearing loss Patient's father is Mother Family history of coronary artery disease Family history of heart disease in male family member before age 55 Sibling Patient's brother is in good health Social History Social History Smoking status: Never smoker Second hand tobacco smoke exposure: No Alcohol intake: never Drinks per week: 1 Substance use: never Substance use type: does not use Do You Feel Safe in your Home?: Yes Lack of Transportation: No Lack of Food: Never True Current Housing: I Have Housing Concerned About Future Housing: No Difficulty Paying Gas/Electric Bills: No Difficulty Paying for Meds: No Currently Unemployed: No Education: Bachelor's Degree Difficulty w/ Childcare or Family Care: No Living arrangements: with family Additional living arrangements comments: lives with his Occupation/Education: occupation 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 Informed Consent: The patient's anesthetic plan and its attendant risks and benefits were discussed with the patient/family/POA. Questions were solicited and answers provided to the satisfaction of the patient/family/POA.
[2024-08-20 14:13] LABS: Glucose Point of Care 172 mg/dl (65-105)
[2024-08-20] MEDS: LACTATED RINGERS 1,000 ML 150 ML IV CONT (14:23)
[2024-08-20 14:27] LABS: Hematocrit 24.5 % (42.0-52.0); Hemoglobin 7.4 g/dL (14.0-18.0)
[2024-08-20] MEDS: EPINEPHrine INJ 1 MG/10 ML SYRINGE 0.45 MG XX (15:02)
[2024-08-20 15:30] LABS: Glucose Point of Care 175 mg/dl (65-105)
--- NOTE | 2024-08-20 15:53 | PC.NURSE ---
Pr returned to IMU room 201 from GI lab.
[2024-08-20 16:39] LABS: Glucose Point of Care 184 mg/dl (65-105)
[2024-08-20 20:22] LABS: Glucose Point of Care 172 mg/dl (65-105)
[2024-08-20 20:48] LABS: Hematocrit 24.7 % (42.0-52.0)
[2024-08-20] MEDS: ATORVASTATIN 40 MG TABLET 80 MG PO (20:53)
[2024-08-20] MEDS: rOPINIRole HCL 1 MG TABLET PO (20:54)
[2024-08-20] MEDS: INSULIN GLARGINE (*BKC) 100 UNITS/ML 36 UNITS SUB-Q (20:55)
[2024-08-21] VITALS (24 sets, daily range): BP systolic 123–155; BP diastolic 50–74; PULSE 68–100; RESP 12–20; TEMP 36.5–37.1; O2SAT 90–100
[2024-08-21] MEDS: LEVOTHYROXINE SODIUM 88 MCG TABLET PO (06:56)
[2024-08-21 08:04] LABS: Glucose Point of Care 205 mg/dl (65-105)
[2024-08-21] MEDS: INSULIN ASPART (*BKC) 100 UNITS/ML SUB-Q ×5 (08:22→17:12)
--- NOTE | 2024-08-21 08:29 | PM.IMPN ---
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 Code(s): E11.9 - Type 2 diabetes mellitus without complications Status: Chronic (3) Hypothyroidism: Qualifiers: Hypothyroidism type: acquired Qualified Code(s): E03.9 - Hypothyroidism, unspecified Code(s): E03.9 - Hypothyroidism, unspecified Status: Acute (4) Hypertension: Qualifiers: Hypertension type: primary hypertension Qualified Code(s): I10 - Essential (primary) hypertension Code(s): I10 - Essential (primary) hypertension Status: Chronic (5) JULIANNE (obstructive sleep apnea): Code(s): G47.33 - Obstructive sleep apnea (adult) (pediatric) Status: Chronic Plan Acute GI bleed: Qualifiers: GI bleed type/associated pathology: unspecified gastrointestinal hemorrhage type Qualified Code(s): K92.2 - Gastrointestinal hemorrhage, unspecified Code(s): K92.2 - Gastrointestinal hemorrhage, unspecified Status: Acute Assessment and Plan: - Hgb 11.5 -> 9.3. previously 13.1 on 12/20/2023. MCV normal, mildly reduced MCHC. - hemoccult was positive - on anticoagulation/antiplatelet: Eliquis and Plavix, held - CT abd/pelvis: 1. Fluid in nondilated normal. Large and small bowel consistent with nonspecific diarrhea. No other acute intra-abdominal/pelvic process. 2. Nonobstructing left nephrolithiasis. 3. Cholelithiasis. - GI consulted, GI found out a single 15 mm ulcer in the ascending colon Acute on chronic blood-loss anemia Hemoglobin 13.1 December 19, 2021 - trend H&H q.4 hours x3 - started on pantoprazole IVP daily - last colonoscopy on 08/10/2024 and showed colonic polyps with polypectomy and internal hemorrhoids - monitor hemodynamic stability and telemetry Given drop in hemoglobin and soft BP, will transfuse 1 unit. Continue to trend H&H. Follow-up ferritin 7.38, and iron 22, iron saturation 8% Patient has iron deficient anemia due to blood loss Start Venofer 100 mg IV daily 08/21 Paroxysmal AFib Patient has sinus rhythm now Hold Eliquis because of active bleeding Acquired hypothyroidism Continue Synthroid 88 mcg daily p.o. 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 Held Ozempic (NF), metformin, and U-500 Humulin R held on 260u total (NF). U-500 converted to Lantus at 70% of original dose and divided BID for Lantus 90 BID. given how high this dose is and that patient will be NPO at midnight, will cut back to 36 BID of Lantus. - correct regimen ordered - high dose TIDWM, based off BMI - A1C 6.4% in 2020, update Hypertension: Qualifiers: Hypertension type: primary hypertension Qualified Code(s): I10 - Essential (primary) hypertension Code(s): I10 - Essential (primary) hypertension Status: Chronic Assessment and Plan: - chronic, currently 99/58 - home medications: hold amlodipine-benazepril, carvedilol - monitor JULIANNE (obstructive sleep apnea): Code(s): G47.33 - Obstructive sleep apnea (adult) (pediatric) Status: Chronic Assessment and Plan: - continue home CPAP Subjective Date/time seen: 08/21/24 08:29 Interval history: I saw examined patient today. Patient had a bloody bowel movement yesterday, no bowel movement today. Patient feels better, patient denies nausea vomiting diarrhea, hemoglobin 6.8 in the morning, labs reviewed, patient has iron deficiency. Exam Narrative: GENERAL: Pleasant, in no acute distress. Well-nourished. - EYES: EOMI. Anicteric. Pale - HENT: Moist mucous membranes. - LUNGS: Clear to auscultation bilaterally, no wheezing, rhonchi, or rales. - CARDIOVASCULAR: Regular rate and rhythm. No murmur. No JVD. - ABDOMEN: Soft, non-tender and non-distended. No palpable masses. - EXTREMITIES: No edema. Peripheral pulses 2+. Non-tender. - NEUROLOGIC: No focal neurological deficits. CN II-XII grossly intact. General weakness - PSYCHIATRIC: Awake, Alert and oriented x 3. Appropriate mood and affect. - SKIN: No rashes or lesions. Warm. - LYMPH: No cervical lymphadenopathy. Objective Data Vital Signs Vital Signs: Vital Signs - 24 hr 08/20/24 10:00 08/20/24 11:55 08/20/24 12:15 Temperature 98.1 F 98.4 F Pulse Rate 101 H 108 H 92 Respiratory Rate 16 Blood Pressure 138/82 138/92 H Pulse Oximetry 98 97 Oxygen Delivery Fraction of Inspired Oxygen 08/20/24 12:00 08/20/24 12:00 08/20/24 14:05 Temperature 97.1 F L Pulse Rate 105 H 106 H Respiratory Rate 18 Blood Pressure 133/75 Pulse Oximetry 100 Oxygen Delivery Room Air Room Air Fraction of Inspired Oxygen 08/20/24 15:07 08/20/24 15:17 08/20/24 15:27 Temperature Pulse Rate 105 H 105 H 97 Respiratory Rate 15 27 H 17 Blood Pressure 109/71 158/68 H 155/75 H Pulse Oximetry 95 100 99 Oxygen Delivery Room Air Room Air Room Air Fraction of Inspired Oxygen 08/20/24 15:24 08/20/24 15:39 08/20/24 16:00 Temperature 98.8 F 97.5 F L 98.2 F Pulse Rate 99 97 98 Respiratory Rate 19 19 10 L Blood Pressure 158/68 H 152/75 H 141/71 H Pulse Oximetry 97 95 100 Oxygen Delivery Fraction of Inspired Oxygen 08/20/24 17:08 08/20/24 16:00 08/20/24 16:00 Temperature Pulse Rate 95 96 Respiratory Rate 12 Blood Pressure 135/72 Pulse Oximetry 94 Oxygen Delivery Room Air Fraction of Inspired Oxygen 08/20/24 15:39 08/20/24 16:39 08/20/24 17:39 Temperature 97.5 F L 98.2 F 98.1 F Pulse Rate 97 95 91 Respiratory Rate 19 12 12 Blood Pressure 152/75 H 135/72 153/69 H Pulse Oximetry 95 94 99 Oxygen Delivery Fraction of Inspired Oxygen 08/20/24 18:00 08/20/24 19:57 08/20/24 20:00 Temperature 98.9 F Pulse Rate 91 94 94 Respiratory Rate 12 12 Blood Pressure 135/59 L Pulse Oximetry 100 100 Oxygen Delivery Room Air Fraction of Inspired Oxygen 08/20/24 23:46 08/21/24 00:00 08/20/24 20:00 Temperature 98.1 F Pulse Rate 94 94 89 Respiratory Rate 12 12 Blood Pressure 135/51 L Pulse Oximetry 100 100 Oxygen Delivery CPAP Fraction of Inspired Oxygen 21 08/20/24 22:00 08/21/24 00:00 08/21/24 02:00 Temperature Pulse Rate 91 89 87 Respiratory Rate Blood Pressure Pulse Oximetry Oxygen Delivery Fraction of Inspired Oxygen 08/20/24 23:15 08/20/24 23:15 08/21/24 03:55 Temperature 97.7 F Pulse Rate 92 98 Respiratory Rate 18 12 Blood Pressure 132/58 L Pulse Oximetry 99 99 90 Oxygen Delivery Autopap Room Air Fraction of Inspired Oxygen 08/21/24 03:49 08/21/24 04:00 08/21/24 05:49 Temperature Pulse Rate 98 90 83 Respiratory Rate 12 Blood Pressure Pulse Oximetry 90 Oxygen Delivery CPAP Fraction of Inspired Oxygen 08/21/24 07:37 Temperature 98 F Pulse Rate 68 Respiratory Rate 16 Blood Pressure 123/74 Pulse Oximetry 96 Oxygen Delivery Fraction of Inspired Oxygen Intake/Output Intake/Output: Intake & Output 08/18/24 08/19/24 08/20/24 08/21/24 23:59 23:59 23:59 23:59 Intake Total 2870 2710 1000 Output Total 800 1015 550 Balance 2070 1695 450 Meds/Results Medications: Active Medications Generic Name Dose Route Start Last Admin Trade Name Freq PRN Reason Stop Dose Admin Atorvastatin Calcium 80 mg 08/19/24 21:00 08/20/24 20:53 Atorvastatin 40 Mg Tablet PO 80 mg HS HEIKE Administration Clotrimazole 1 applic 08/19/24 18:55 08/20/24 16:19 Betamethasone/Clotrimazole Cream 15 Gm Tube TOPICAL 1 applic BID HEIKE Administration Dextrose 12.5 gm 08/19/24 14:31 Dextrose 50% 25 Gm/50 Ml Syringe IV PUSH PRN PRN Hypoglycemia Protocol Ezetimibe 10 mg 08/20/24 09:00 08/20/24 08:38 Ezetimibe 10 Mg Tablet PO 10 mg DAILY HEIKE Administration Empagliflozin 25 mg 08/20/24 09:00 08/20/24 08:31 Empagliflozin 25 Mg Tablet PO Not Given QAM HEIKE Furosemide 20 mg 08/20/24 08:35 08/20/24 08:43 Furosemide 20 Mg Tablet PO Not Given QAM HEIKE Gabapentin 300 mg 08/19/24 18:55 08/20/24 16:17 Gabapentin 300 Mg Capsule PO 300 mg BID HEIKE Administration Glucagon 1 mg 08/19/24 14:31 Glucagon For Inj 1 Mg Vial IM PRN PRN Hypoglycemia Protocol Glucose 15 gm 08/19/24 14:31 Glucose Oral Gel 15 Gm Of Glucse In 37.5 Gm Tube PO PRN PRN Hypoglycemia Protocol Dextrose 1,000 mls @ 100 mls/hr 08/19/24 14:31 Dextrose 5% 1,000 Ml IVPB PRN PRN Hypoglycemia Protocol Insulin Aspart 4 - 8 units 08/19/24 17:00 08/21/24 08:22 Insulin Aspart (*Bkc) 100 Units/Ml SUB-Q 4 units TIDWM HEIKE Administration Protocol Insulin Glargine 36 units 08/20/24 21:00 08/20/24 20:55 Insulin Glargine (*Bkc) 100 Units/Ml SUB-Q 36 units Q12HR HEIKE Administration Levothyroxine Sodium 88 mcg 08/20/24 06:30 08/21/24 06:56 Levothyroxine Sodium 88 Mcg Tablet PO 88 mcg DAILY@0630 HEIKE Administration Ondansetron HCl 4 mg 08/19/24 20:30 08/20/24 13:39 Ondansetron Inj 4 Mg/2 Ml Vial IV PUSH 4 mg Q6H PRN Administration Nausea And Vomiting Pantoprazole Sodium 40 mg 08/20/24 09:00 08/20/24 08:37 Pantoprazole Sodium Iv 40 Mg Vial IV PUSH 40 mg QAM HEIKE Administration Ranolazine 500 mg 08/20/24 09:00 08/20/24 08:37 Ranolazine 500 Mg Tab.Er.12h PO 500 mg DAILY HEIKE Administration Ropinirole HCl 1 mg 08/19/24 21:00 08/20/24 20:54 Ropinirole Hcl 1 Mg Tablet PO 1 mg HS HEIKE Administration Radiology Results: ITS Impressions Abdomen/Pelvis CT 08/19/24 12:11 IMPRESSION: 1. Fluid in nondilated normal. Large and small bowel consistent with nonspecific diarrhea. No other acute intra-abdominal/pelvic process. 2. Nonobstructing left nephrolithiasis. 3. Cholelithiasis. Labs Labs: Laboratory Results - last 24 hr 08/19/24 08/20/24 08/20/24 11:05 05:04 12:20 Hgb Hct POC Capillary Glucose 176 H Iron 22 L TIBC 262 L % Saturation 8 L Ferritin 7.38 L Blood Type O Positive Antibody Screen Negative Crossmatch See Detail 08/20/24 08/20/24 08/20/24 14:11 14:22 15:17 Hgb 7.4 L Hct 24.5 L POC Capillary Glucose 172 H 175 H Iron TIBC % Saturation Ferritin Blood Type Antibody Screen Crossmatch 08/20/24 08/20/24 08/20/24 16:32 19:42 20:31 Hgb 8.0 L Hct 24.7 L POC Capillary Glucose 184 H 172 H Iron TIBC % Saturation Ferritin Blood Type Antibody Screen Crossmatch 08/21/24 07:28 Hgb Hct POC Capillary Glucose 205 H Iron TIBC % Saturation Ferritin Blood Type Antibody Screen Crossmatch
[2024-08-21 09:06] LABS: Basophils Percent Auto 0.3 % (0.2-1.2); Eosinophils Absolute Auto 0.1 K/mm3 (0-0.3); Eosinophils Percent Auto 0.6 % (0-4.4); Hematocrit 21.2 % (42.0-52.0); Immature Granulocyte Absolute 0.08 K/mm3 (0.00-0.031); Immature Granulocyte Percent A 0.8 % (0-0.5); Lymphocytes Absolute Auto 1.16 K/mm3 (0.9-3.2); Lymphocytes Percent Auto 11.6 % (18.3-44.2); Mean Corpuscular HGB Conc 32.1 g/dl (32-36); Mean Corpuscular Hemoglobin 26.7 pg (26-34); Mean Corpuscular Volume 83.1 fl (80-100); Mean Platelet Volume 9.4 fl (7.4-10.4); Monocytes Absolute Auto 1.1 K/mm3 (0.1-0.6); Monocytes Percent Auto 10.6 % (2.6-8.5); Neutrophils Absolute Auto 7.6 K/mm3 (1.3-6.7); Neutrophils Percent Auto 76.1 % (45.5-73.1); Platelet Count Result 240 k/mm3 (150-375); Red Blood Count 2.55 M/mm3 (4.6-6.20); Red Cell Distribution Width 18.3 % (11.5-14.5)
[2024-08-21 09:10] LABS: Hemoglobin 6.8 g/dL (14.0-18.0)
[2024-08-21] MEDS: GABAPENTIN 300 MG CAPSULE PO ×2 (09:13→16:03)
[2024-08-21] MEDS: PANTOPRAZOLE SODIUM IV 40 MG VIAL IV PUSH (09:13)
[2024-08-21] MEDS: RANOLAZINE 500 MG TAB.ER.12H PO (09:13)
[2024-08-21] MEDS: EMPAGLIFLOZIN 25 MG TABLET PO (09:14)
[2024-08-21] MEDS: BETAMETHASONE/CLOTRIMAZOLE CREAM 15 GM TUBE 1 APPLIC TOPICAL ×2 (09:15→16:03)
[2024-08-21] MEDS: EZETIMIBE 10 MG TABLET PO (09:15)
[2024-08-21] MEDS: FUROSEMIDE 20 MG TABLET PO (09:17)
[2024-08-21] MEDS: INSULIN GLARGINE (*BKC) 100 UNITS/ML 36 UNITS SUB-Q ×2 (09:20→22:13)
[2024-08-21] MEDS: IRON SUCROSE COMPLEX 100 MG in SODIUM CHLORIDE 0.9% IV 50 ML 220 MG IVPB (09:20)
--- NOTE | 2024-08-21 09:23 | WPDGIPROGNO ---
Progress Note: A&P Assessment and Plan (1) Post-polypectomy bleeding: Status: Acute Assessment and Plan: he had several adenomatous polyps removed, largest in ascending- noted clotted blood without active bleeding, this was treated with epi and clips no more bleeding today hgb better after blood transfusion home soon, tolerating diet recommend to hold blood thinners for 7 days (2) Rectal bleeding: Code(s): K62.5 - Hemorrhage of anus and rectum Status: Acute Assessment and Plan: resolved (3) Acute blood loss anemia: Code(s): D62 - Acute posthemorrhagic anemia Status: Acute (4) Blood thinned due to long-term anticoagulant use: 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(s): 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 Status: Acute Assessment and Plan: on hold (5) Type 2 diabetes mellitus without complications: Qualifiers: Diabetes mellitus skilled nursing insulin use: with skilled nursing use Qualified Code(s): E11.9 - Type 2 diabetes mellitus without complications; Z79.4 - FPC (current) use of insulin Code(s): E11.9 - Type 2 diabetes mellitus without complications Status: Chronic (6) GI bleed: Qualifiers: GI bleed type/associated pathology: unspecified gastrointestinal hemorrhage type Qualified Code(s): K92.2 - Gastrointestinal hemorrhage, unspecified Code(s): K92.2 - Gastrointestinal hemorrhage, unspecified Status: Acute (7) Colon polyp: Code(s): K63.5 - Polyp of colon Status: Acute Assessment and Plan: next colonoscopy in 2 years Subjective Date/time seen: 08/21/24 09:23 Interval history: colonoscopy yesterday found ulcer from post polypectomy of large polyp, he was using blood thinners again. This was treated with combination of epi and clips no more bleeding, he is feeling better after blood transfusion and tolerating diet Review of Systems Review of Systems: All systems reviewed & are unremarkable except as noted in HPI and below Exam Const: General: comfortable and no acute distress HENMT: Face/Nose/Sinus: Normal nares present Eyes: General: appearance normal, both eyes and all related structures Neck: Neck: supple Resp: Auscultation: clear to auscultation bilaterally Cardio: Rate: regular rate Rhythm: regular rhythm GI: Inspection: non-distended GI Palp: Yes Soft to palpation and No Tenderness to palpation present (GI) Auscultation: normal bowel sounds Skin: General skin exam: normal color Neuro: Speech: normal speech Motor exam (neuro): 5/5 motor strength present throughout Extrem: General: normal to inspection Psych: Mental Status: mental status grossly normal Objective Data Vital Signs Vital Signs: Vital Signs - 24 hr 08/20/24 10:00 08/20/24 11:55 08/20/24 12:15 Temperature 98.1 F 98.4 F Pulse Rate 101 H 108 H 92 Respiratory Rate 16 Blood Pressure 138/82 138/92 H Pulse Oximetry 98 97 Oxygen Delivery Fraction of Inspired Oxygen 08/20/24 12:00 08/20/24 12:00 08/20/24 14:05 Temperature 97.1 F L Pulse Rate 105 H 106 H Respiratory Rate 18 Blood Pressure 133/75 Pulse Oximetry 100 Oxygen Delivery Room Air Room Air Fraction of Inspired Oxygen 08/20/24 15:07 08/20/24 15:17 08/20/24 15:27 Temperature Pulse Rate 105 H 105 H 97 Respiratory Rate 15 27 H 17 Blood Pressure 109/71 158/68 H 155/75 H Pulse Oximetry 95 100 99 Oxygen Delivery Room Air Room Air Room Air Fraction of Inspired Oxygen 08/20/24 15:24 08/20/24 15:39 08/20/24 16:00 Temperature 98.8 F 97.5 F L 98.2 F Pulse Rate 99 97 98 Respiratory Rate 19 19 10 L Blood Pressure 158/68 H 152/75 H 141/71 H Pulse Oximetry 97 95 100 Oxygen Delivery Fraction of Inspired Oxygen 08/20/24 17:08 08/20/24 16:00 08/20/24 16:00 Temperature Pulse Rate 95 96 Respiratory Rate 12 Blood Pressure 135/72 Pulse Oximetry 94 Oxygen Delivery Room Air Fraction of Inspired Oxygen 08/20/24 15:39 08/20/24 16:39 08/20/24 17:39 Temperature 97.5 F L 98.2 F 98.1 F Pulse Rate 97 95 91 Respiratory Rate 19 12 12 Blood Pressure 152/75 H 135/72 153/69 H Pulse Oximetry 95 94 99 Oxygen Delivery Fraction of Inspired Oxygen 08/20/24 18:00 08/20/24 19:57 08/20/24 20:00 Temperature 98.9 F Pulse Rate 91 94 94 Respiratory Rate 12 12 Blood Pressure 135/59 L Pulse Oximetry 100 100 Oxygen Delivery Room Air Fraction of Inspired Oxygen 08/20/24 23:46 08/21/24 00:00 08/20/24 20:00 Temperature 98.1 F Pulse Rate 94 94 89 Respiratory Rate 12 12 Blood Pressure 135/51 L Pulse Oximetry 100 100 Oxygen Delivery CPAP Fraction of Inspired Oxygen 21 08/20/24 22:00 08/21/24 00:00 08/21/24 02:00 Temperature Pulse Rate 91 89 87 Respiratory Rate Blood Pressure Pulse Oximetry Oxygen Delivery Fraction of Inspired Oxygen 08/20/24 23:15 08/20/24 23:15 08/21/24 03:55 Temperature 97.7 F Pulse Rate 92 98 Respiratory Rate 18 12 Blood Pressure 132/58 L Pulse Oximetry 99 99 90 Oxygen Delivery Autopap Room Air Fraction of Inspired Oxygen 08/21/24 03:49 08/21/24 04:00 08/21/24 05:49 Temperature Pulse Rate 98 90 83 Respiratory Rate 12 Blood Pressure Pulse Oximetry 90 Oxygen Delivery CPAP Fraction of Inspired Oxygen 21 08/21/24 07:37 08/21/24 08:50 Temperature 98 F Pulse Rate 68 Respiratory Rate 16 Blood Pressure 123/74 Pulse Oximetry 96 96 Oxygen Delivery Room Air Fraction of Inspired Oxygen 21 Intake/Output Intake/Output: Intake & Output 08/18/24 08/19/24 08/20/24 08/21/24 23:59 23:59 23:59 23:59 Intake Total 2870 2710 1000 Output Total 800 1015 550 Balance 2070 1695 450 Meds/Results Medications: Active Medications Generic Name Dose Route Start Last Admin Trade Name Freq PRN Reason Stop Dose Admin Atorvastatin Calcium 80 mg 08/19/24 21:00 08/20/24 20:53 Atorvastatin 40 Mg Tablet PO 80 mg HS HEIKE Administration Clotrimazole 1 applic 08/19/24 18:55 08/21/24 09:15 Betamethasone/Clotrimazole Cream 15 Gm Tube TOPICAL 1 applic BID HEIKE Administration Dextrose 12.5 gm 08/19/24 14:31 Dextrose 50% 25 Gm/50 Ml Syringe IV PUSH PRN PRN Hypoglycemia Protocol Ezetimibe 10 mg 08/20/24 09:00 08/21/24 09:15 Ezetimibe 10 Mg Tablet PO 10 mg DAILY HEIKE Administration Empagliflozin 25 mg 08/20/24 09:00 08/21/24 09:14 Empagliflozin 25 Mg Tablet PO 25 mg QAM HEIKE Administration Furosemide 20 mg 08/20/24 08:35 08/21/24 09:17 Furosemide 20 Mg Tablet PO 20 mg QAM HEIKE Administration Gabapentin 300 mg 08/19/24 18:55 08/21/24 09:13 Gabapentin 300 Mg Capsule PO 300 mg BID HEIKE Administration Glucagon 1 mg 08/19/24 14:31 Glucagon For Inj 1 Mg Vial IM PRN PRN Hypoglycemia Protocol Glucose 15 gm 08/19/24 14:31 Glucose Oral Gel 15 Gm Of Glucse In 37.5 Gm Tube PO PRN PRN Hypoglycemia Protocol Dextrose 1,000 mls @ 100 mls/hr 08/19/24 14:31 Dextrose 5% 1,000 Ml IVPB PRN PRN Hypoglycemia Protocol Iron Sucrose 100 mg/ Sodium 55 mls @ 220 mls/hr 08/21/24 09:15 08/21/24 09:20 Chloride IVPB 220 mls/hr DAILY HEIKE Administration Sodium Chloride 250 mls @ 30 mls/hr 08/21/24 09:11 Normal Saline Iv IV CONT 08/21/24 17:30 .Q8H20M STA Insulin Aspart 4 - 8 units 08/19/24 17:00 08/21/24 08:22 Insulin Aspart (*Bkc) 100 Units/Ml SUB-Q 4 units TIDWM HEIKE Administration Protocol Insulin Aspart 3 units 08/21/24 12:00 Insulin Aspart (*Bkc) 100 Units/Ml SUB-Q TIDWM HEIKE Insulin Glargine 36 units 08/20/24 21:00 08/21/24 09:20 Insulin Glargine (*Bkc) 100 Units/Ml SUB-Q 36 units Q12HR HEIKE Administration Levothyroxine Sodium 88 mcg 08/20/24 06:30 08/21/24 06:56 Levothyroxine Sodium 88 Mcg Tablet PO 88 mcg DAILY@0630 HEIKE Administration Ondansetron HCl 4 mg 08/19/24 20:30 08/20/24 13:39 Ondansetron Inj 4 Mg/2 Ml Vial IV PUSH 4 mg Q6H PRN Administration Nausea And Vomiting Pantoprazole Sodium 40 mg 08/20/24 09:00 08/21/24 09:13 Pantoprazole Sodium Iv 40 Mg Vial IV PUSH 40 mg QAM HEIKE Administration Ranolazine 500 mg 08/20/24 09:00 08/21/24 09:13 Ranolazine 500 Mg Tab.Er.12h PO 500 mg DAILY HEIKE Administration Ropinirole HCl 1 mg 08/19/24 21:00 08/20/24 20:54 Ropinirole Hcl 1 Mg Tablet PO 1 mg HS HEIKE Administration Radiology Results: ITS Impressions Abdomen/Pelvis CT 08/19/24 12:11 IMPRESSION: 1. Fluid in nondilated normal. Large and small bowel consistent with nonspecific diarrhea. No other acute intra-abdominal/pelvic process. 2. Nonobstructing left nephrolithiasis. 3. Cholelithiasis. Labs Labs: Laboratory Results - last 24 hr 08/19/24 08/20/24 08/20/24 11:05 05:04 12:20 WBC RBC Hgb Hct MCV MCH MCHC RDW Plt Count MPV Immature Gran % (Auto) Neut % (Auto) Lymph % (Auto) Bell % (Auto) Eos % (Auto) Baso % (Auto) Lymph # (Auto) Bell # (Auto) Eos # (Auto) Baso # (Auto) Abs Immat Gran (auto) Absolute Neuts (auto) Absolute Nucleated RBC Nucleated RBC % POC Capillary Glucose 176 H Iron 22 L TIBC 262 L % Saturation 8 L Ferritin 7.38 L Blood Type O Positive Antibody Screen Negative Crossmatch See Detail 08/20/24 08/20/24 08/20/24 14:11 14:22 15:17 WBC RBC Hgb 7.4 L Hct 24.5 L MCV MCH MCHC RDW Plt Count MPV Immature Gran % (Auto) Neut % (Auto) Lymph % (Auto) Bell % (Auto) Eos % (Auto) Baso % (Auto) Lymph # (Auto) Bell # (Auto) Eos # (Auto) Baso # (Auto) Abs Immat Gran (auto) Absolute Neuts (auto) Absolute Nucleated RBC Nucleated RBC % POC Capillary Glucose 172 H 175 H Iron TIBC % Saturation Ferritin Blood Type Antibody Screen Crossmatch 08/20/24 08/20/24 08/20/24 16:32 19:42 20:31 WBC RBC Hgb 8.0 L Hct 24.7 L MCV MCH MCHC RDW Plt Count MPV Immature Gran % (Auto) Neut % (Auto) Lymph % (Auto) Bell % (Auto) Eos % (Auto) Baso % (Auto) Lymph # (Auto) Bell # (Auto) Eos # (Auto) Baso # (Auto) Abs Immat Gran (auto) Absolute Neuts (auto) Absolute Nucleated RBC Nucleated RBC % POC Capillary Glucose 184 H 172 H Iron TIBC % Saturation Ferritin Blood Type Antibody Screen Crossmatch 08/21/24 08/21/24 07:28 08:46 WBC 10.0 RBC 2.55 L Hgb 6.8 L* Hct 21.2 L MCV 83.1 MCH 26.7 D MCHC 32.1 RDW 18.3 H Plt Count 240 MPV 9.4 Immature Gran % (Auto) 0.8 H Neut % (Auto) 76.1 H Lymph % (Auto) 11.6 L Bell % (Auto) 10.6 H Eos % (Auto) 0.6 Baso % (Auto) 0.3 Lymph # (Auto) 1.16 Bell # (Auto) 1.1 H Eos # (Auto) 0.1 Baso # (Auto) 0.0 Abs Immat Gran (auto) 0.08 H Absolute Neuts (auto) 7.6 H Absolute Nucleated RBC 0.000 Nucleated RBC % 0.0 POC Capillary Glucose 205 H Iron TIBC % Saturation Ferritin Blood Type Antibody Screen Crossmatch
[2024-08-21 09:35] LABS: Anion Gap 9 mmol/L (4-12); Blood Urea Nitrogen 24 mg/dL (9-20); Calcium 7.7 mg/dL (8.4-10.2); Carbon Dioxide 23 mmol/L (22-30); Chloride 106 mmol/L (98-107); Estimated CRCL calculation 69 ml/min; Estimated Glomerular Filt Rate > 60; Glucose 261 mg/dL (65-110); Potassium 4.1 mmol/L (3.4-5.0); Sodium 138 mmol/L (137-145)
[2024-08-21 11:50] LABS: Glucose Point of Care 199 mg/dl (65-105)
[2024-08-21] MEDS: SODIUM CHLORIDE 0.9% IV 250 ML 30 ML IV CONT (13:15)
[2024-08-21] MEDS: TUBING, BLOOD PLUM PUMP TUBING 1 EACH XX (13:15)
[2024-08-21] MEDS: BENZOCAINE/MENTHOL (*BKC) 18 EA LOZENGE 1 LOZENGE PO (13:49)
--- NOTE | 2024-08-21 15:13 | PC.NURSE ---
Reviewed and acknowlege all charting by Quiana Singh [facility]
[2024-08-21 16:51] LABS: Glucose Point of Care 214 mg/dl (65-105)
[2024-08-21 20:40] LABS: Hematocrit 23.9 % (42.0-52.0); Hemoglobin 7.6 g/dL (14.0-18.0)
[2024-08-21 20:50] LABS: Glucose Point of Care 155 mg/dl (65-105)
[2024-08-21] MEDS: ATORVASTATIN 40 MG TABLET 80 MG PO (22:04)
[2024-08-21] MEDS: rOPINIRole HCL 1 MG TABLET PO (22:05)
[2024-08-22] VITALS (18 sets, daily range): BP systolic 104–155; BP diastolic 49–68; PULSE 77–133; RESP 12–20; TEMP 36.7–37; O2SAT 93–98
--- NOTE | 2024-08-22 01:17 | PC.NURSE ---
Daylight Savings Time For Daylight Savings Time Ending in the Fall - Clocks are moved back. For Daylight Savings Time Beginning in the Spring - Clocks are moved ahead. For [facility], the time of change occurs at 0200 hrs. Time is taken from the senior sql server database developer. This entry on the patient's chart recognizes the change in time reflected during documentation. Example: 2 entries for vital signs may be charted for 0200 hrs.
--- NOTE | 2024-08-22 05:59 | ECG_ITS ---
Test Date: 2024-08-22 06:12:10 Measurements Intervals [place] Rate: 119 P: 0 TX: 0 QRS: 172 QRSD: 121 T: 199 QT: 382 QTc: 539 Interpretive Statements ATRIAL FIBRILLATION WITH RAPID VENTRICULAR RESPONSE BORDERLINE R WAVE PROGRESSION, ANTERIOR LEADS INFERIOR INFARCT, AGE INDETERMINATE HIGH LATERAL INFARCT, AGE INDETERMINATE ABNORMAL ECG No previous ECG available for comparison Electronically Signed On 08-22-2024 06:17:38 [employer] by Mateusz Quintana D.O.
[2024-08-22] MEDS: LEVOTHYROXINE SODIUM 88 MCG TABLET PO (06:21)
[2024-08-22] MEDS: carvediloL 12.5 MG TABLET PO (07:10)
[2024-08-22 07:45] LABS: Glucose Point of Care 141 mg/dl (65-105)
[2024-08-22 08:59] LABS: Basophils Percent Auto 0.2 % (0.2-1.2); Eosinophils Absolute Auto 0.2 K/mm3 (0-0.3); Eosinophils Percent Auto 2.2 % (0-4.4); Hematocrit 24.9 % (42.0-52.0); Hemoglobin 8.1 g/dL (14.0-18.0); Immature Granulocyte Absolute 0.13 K/mm3 (0.00-0.031); Immature Granulocyte Percent A 1.5 % (0-0.5); Lymphocytes Absolute Auto 1.54 K/mm3 (0.9-3.2); Lymphocytes Percent Auto 17.6 % (18.3-44.2); Mean Corpuscular HGB Conc 32.5 g/dl (32-36); Mean Corpuscular Hemoglobin 27.1 pg (26-34); Mean Corpuscular Volume 83.3 fl (80-100); Mean Platelet Volume 9.3 fl (7.4-10.4); Monocytes Percent Auto 10.9 % (2.6-8.5); Neutrophils Absolute Auto 5.9 K/mm3 (1.3-6.7); Neutrophils Percent Auto 67.6 % (45.5-73.1); Nucleated Red Blood Cells Perc 0.7 % (0.0-0.2); Platelet Count Result 224 k/mm3 (150-375); Red Blood Count 2.99 M/mm3 (4.6-6.20); Red Cell Distribution Width 17.4 % (11.5-14.5); White Blood Count 8.7 K/mm3 (4.5-10.0)
[2024-08-22 09:08] LABS: Anion Gap 9 mmol/L (4-12); Blood Urea Nitrogen 12 mg/dL (9-20); Calcium 7.9 mg/dL (8.4-10.2); Carbon Dioxide 26 mmol/L (22-30); Chloride 105 mmol/L (98-107); Estimated CRCL calculation 83 ml/min; Estimated Glomerular Filt Rate > 60; Glucose 180 mg/dL (65-110); Potassium 3.2 mmol/L (3.4-5.0); Sodium 140 mmol/L (137-145)
[2024-08-22] MEDS: EZETIMIBE 10 MG TABLET PO (09:28)
[2024-08-22] MEDS: FUROSEMIDE 20 MG TABLET PO (09:28)
[2024-08-22] MEDS: EMPAGLIFLOZIN 25 MG TABLET PO (09:28)
[2024-08-22] MEDS: RANOLAZINE 500 MG TAB.ER.12H PO (09:29)
[2024-08-22] MEDS: PANTOPRAZOLE SODIUM IV 40 MG VIAL IV PUSH (09:29)
[2024-08-22] MEDS: GABAPENTIN 300 MG CAPSULE PO ×2 (09:29→17:49)
[2024-08-22] MEDS: IRON SUCROSE COMPLEX 100 MG in SODIUM CHLORIDE 0.9% IV 50 ML 220 MG IVPB (09:30)
[2024-08-22] MEDS: BETAMETHASONE/CLOTRIMAZOLE CREAM 15 GM TUBE 1 APPLIC TOPICAL ×2 (09:31→17:50)
--- NOTE | 2024-08-22 09:36 | P.PNIM_ITS ---
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 Code(s): E11.9 - Type 2 diabetes mellitus without complications Status: Chronic (3) Hypothyroidism: Qualifiers: Hypothyroidism type: acquired Qualified Code(s): E03.9 - Hy pothyroidism, unspecified Code(s): E03.9 - Hypothyroidism, unspecified Status: Acute (4) Hypertension: Qualifiers: Hypertension type: primary hypertension Qualified Code(s): I10 - Essential (primary) hypertension Code(s): I10 - Essential (primary) hypertension Status: Chronic (5) JULIANNE (obstructive sleep apnea): Code(s): G47.33 - Obstructive sleep apnea (adult) (pediatric) Status: Chronic Plan Acute GI bleed: Qualifiers: GI bleed type/associated pathology: unspecified gastrointestinal hemorrhage type Qualified Code(s): K92.2 - Gastrointestinal hemorrhage, unspecified Code(s): K92.2 - Gastrointestinal hemorrhage, unspecified Status: Acute Assessment and Plan: - Hgb 11.5 -> 9.3. previously 13.1 on 12/20/2023. MCV normal, mildly reduced MCHC. - hemoccult was positive - on anticoagulation/antiplatelet: Eliquis and Plavix, held - CT abd/pelvis: 1. Fluid in nondilated normal. Large and small bowel consistent with nonspecific diarrhea. No other acute intra-abdominal/pelvic process. 2. Nonobstructing left nephrolithiasis. 3. Cholelithiasis. - GI consulted, GI found out a single 15 mm ulcer in the ascending colon Acute on chronic blood-loss anemia Hemoglobin 13.1 December 19, 2021 - trend H&H q.4 hours x3 - started on pantoprazole IVP daily - last colonoscopy on 08/10/2024 and showed colonic polyps with polypectomy and internal hemorrhoids - monitor hemodynamic stability and telemetry Given drop in hemoglobin and soft BP, will transfuse 1 unit. Continue to trend H&H. Follow-up ferritin 7.38, and iron 22, iron saturation 8% Patient has iron deficient anemia due to blood loss Start Venofer 100 mg IV daily 08/21 Hemoglobin 8.1 today, is trending up Paroxysmal AFib RVR Now patient has AFib Hold Eliquis because of active bleeding Consult cardiology for evaluation and treatment Acquired hypothyroidism Continue Synthroid 88 mcg daily p.o. 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 Held Ozempic (NF), metformin, and U-500 Humulin R held on 260u total (NF). U-500 converted to Lantus at 70% of original dose and divided BID for Lantus 90 BID. given how high this dose is and that patient will be NPO at midnight, will cut back to 36 BID of Lantus. - correct regimen ordered - high dose TIDWM, based off BMI - A1C 6.4% in 2020, update Hypertension: Qualifiers: Hypertension type: primary hypertension Qualified Code(s): I10 - Essential (primary) hypertension Code(s): I10 - Essential (primary) hypertension Status: Chronic Assessment and Plan: - chronic, currently 99/58 - home medications: hold amlodipine-benazepril, carvedilol - monitor JULIANNE (obstructive sleep apnea): Code(s): G47.33 - Obstructive sleep apnea (adult) (pediatric) Status: Chronic Assessment and Plan: - continue home CPAP May discharge patient tomorrow if you hemoglobin stable Subjective Date/time seen: 08/22/24 09:36 Interval history: I saw examined patient today. Patient is afebrile, blood pressure stable, labs reviewed. Hemoglobin 8.1 today Patient still has general weakness. Patient was noticed have AFib RVR over the night, now patient has AFib Exam Narrative: GENERAL: Pleasant, in no acute distress. Well-nourished. - EYES: EOMI. Anicteric. Pale - HENT: Moist mucous membranes. - LUNGS: Clear to auscultation bilateral ly, no wheezing, rhonchi, or rales. - CARDIOVASCULAR: Irregular irregular r hythm, rate is controlled. No murmur. No JVD. - ABDOMEN: Soft, non-tender and non-dist ended. No palpable masses. - EXTREMITIES: No edema. Peripheral puls es 2+. Non-tender. - NEUROLOGIC: No focal neurological defi cits. CN II-XII grossly intact. General weakness - PSYCHIATRIC: Awake, Alert and oriented x 3. Appropriate mood and affect. - SKIN: No rashes or lesions. Warm. - LYMPH: No cervical lymphadenopathy. Objective Data Vital Signs Vital Signs: Vital Signs - 24 hr 08/21/24 11:54 08/21/24 12:00 08/21/24 12:00 Temperature 98 F Pulse Rate 84 100 Respiratory Rate 16 Blood Pressure 132/50 L Pulse Oximetry 99 Oxygen Delivery Room Air Fraction of Inspired Oxygen 08/21/24 13:17 08/21/24 13:34 08/21/24 14:34 Temperature 98.1 F 98.2 F 98.3 F Pulse Rate 95 95 91 Respiratory Rate 20 18 16 Blood Pressure 155/64 H 130/56 L 136/63 Pulse Oximetry 96 96 97 Oxygen Delivery Fraction of Inspired Oxygen 08/21/24 15:43 08/21/24 15:20 08/21/24 14:00 Temperature 98.4 F 98.4 F Pulse Rate 93 93 93 Respiratory Rate 20 20 Blood Pressure 143/59 H 143/59 H Pulse Oximetry 98 98 Oxygen Delivery Fraction of Inspired Oxygen 08/21/24 16:00 08/21/24 16:00 08/21/24 18:00 Temperature Pulse Rate 90 95 Respiratory Rate Blood Pressure Pulse Oximetry Oxygen Delivery Room Air Fraction of Inspired Oxygen 08/21/24 20:15 08/21/24 20:00 08/21/24 23:50 Temperature 98.7 F 97.8 F Pulse Rate 90 90 84 Respiratory Rate 20 20 20 Blood Pressure 133/64 154/52 H Pulse Oximetry 99 99 96 Oxygen Delivery Room Air Fraction of Inspired Oxygen 21 08/21/24 20:00 08/21/24 22:00 08/22/24 00:00 Temperature Pulse Rate 85 86 93 Respiratory Rate Blood Pressure Pulse Oximetry Oxygen Delivery Fraction of Inspired Oxygen 08/22/24 00:00 08/22/24 01:51 CDT 08/22/24 04:16 Temperature 98.4 F Pulse Rate 84 77 81 Respiratory Rate 20 20 Blood Pressure 131/62 Pulse Oximetry 96 94 Oxygen Delivery CPAP Fraction of Inspired Oxygen 21 08/22/24 04:00 08/22/24 04:00 08/22/24 06:00 Temperature Pulse Rate 81 81 111 H Respiratory Rate 20 Blood Pressure Pulse Oximetry 98 Oxygen Delivery CPAP Fraction of Inspired Oxygen 21 08/22/24 06:56 08/22/24 07:10 08/22/24 08:00 Temperature 98.6 F Pulse Rate 133 H 118 H 106 H Respiratory Rate 20 20 Blood Pressure 155/68 H 142/54 H Pulse Oximetry 98 93 Oxygen Delivery Room Air Fraction of Inspired Oxygen 08/22/24 08:00 Temperature Pulse Rate 108 H Respiratory Rate Blood Pressure Pulse Oximetry Oxygen Delivery Fraction of Inspired Oxygen Intake/Output Intake/Output: Intake & Output 08/19/24 08/20/24 08/21/24 08/22/24 23:59 23:59 23:59 22:59 Intake Total 2870 2710 2335 440 Output Total 800 1015 4225 1000 Balance 2079 1401 -5198 -558 Meds/Results Medications: Active Medications Generic Name Dose Route Start Last Admin Trade Name Freq PRN Reason Stop Dose Admin Acetaminophen 650 mg 08/21/24 09:34 Acetaminophen 325 Mg Tablet PO Q6H PRN Mild Pain (1-3) or Fever Atorvastatin Calcium 80 mg 08/19/24 21:00 08/21/24 22:04 Atorvastatin 40 Mg Tablet PO 80 mg HS HEIKE Administration Benzocaine 1 lozenge 08/21/24 13:25 08/21/24 13:49 Benzocaine/Menthol (*Bkc) 18 Ea Lozenge PO 1 lozenge PRN PRN Administration Sore Throat Carvedilol 12.5 mg 08/22/24 07:15 08/22/24 07:10 Carvedilol 12.5 Mg Tablet PO 12.5 mg Q12HR HEIKE Administration Clotrimazole 1 applic 08/19/24 18:55 08/22/24 09:31 Betamethasone/Clotrimazole Cream 15 Gm Tube TOPICAL 1 applic BID HEIKE Administration Dextrose 12.5 gm 08/19/24 14:31 Dextrose 50% 25 Gm/50 Ml Syringe IV PUSH PRN PRN Hypoglycemia Protocol Ezetimibe 10 mg 08/20/24 09:00 08/22/24 09:28 Ezetimibe 10 Mg Tablet PO 10 mg DAILY HEIKE Administration Empagliflozin 25 mg 08/20/24 09:00 08/22/24 09:28 Empagliflozin 25 Mg Tablet PO 25 mg QAM HEIKE Administration Furosemide 20 mg 08/20/24 08:35 08/22/24 09:28 Furosemide 20 Mg Tablet PO 20 mg QAM HEIKE Administration Gabapentin 300 mg 08/19/24 18:55 08/22/24 09:29 Gabapentin 300 Mg Capsule PO 300 mg BID HEIKE Administration Glucagon 1 mg 08/19/24 14:31 Glucagon For Inj 1 Mg Vial IM PRN PRN Hypoglycemia Protocol Glucose 15 gm 08/19/24 14:31 Glucose Oral Gel 15 Gm Of Glucse In 37.5 Gm Tube PO PRN PRN Hypoglycemia Protocol Dextrose 1,000 mls @ 100 mls/hr 08/19/24 14:31 Dextrose 5% 1,000 Ml IVPB PRN PRN Hypoglycemia Protocol Iron Sucrose 100 mg/ Sodium 55 mls @ 220 mls/hr 08/21/24 09:15 08/22/24 09:30 Chloride IVPB 220 mls/hr DAILY HEIKE Administration Insulin Aspart 4 - 8 units 08/19/24 17:00 08/22/24 09:25 Insulin Aspart (*Bkc) 100 Units/Ml SUB-Q Not Given TIDWM [facility] Protocol Insulin Aspart 3 units 08/21/24 12:00 08/21/24 17:11 Insulin Aspart (*Bkc) 100 Units/Ml SUB-Q 3 units TIDWM HEIKE Administration Insulin Glargine 36 units 08/20/24 21:00 08/21/24 22:13 Insulin Glargine (*Bkc) 100 Units/Ml SUB-Q 36 units Q12HR HEIKE Administration Levothyroxine Sodium 88 mcg 08/20/24 06:30 08/22/24 06:21 Levothyroxine Sodium 88 Mcg Tablet PO 88 mcg DAILY@0630 HEIKE Administration Ondansetron HCl 4 mg 08/19/24 20:30 08/20/24 13:39 Ondansetron Inj 4 Mg/2 Ml Vial IV PUSH 4 mg Q6H PRN Administration Nausea And Vomiting Pantoprazole Sodium 40 mg 08/20/24 09:00 08/22/24 09:29 Pantoprazole Sodium Iv 40 Mg Vial IV PUSH 40 mg QAM HEIKE Administration Ranolazine 500 mg 08/20/24 09:00 08/22/24 09:29 Ranolazine 500 Mg Tab.Er.12h PO 500 mg DAILY HEIKE Administration Ropinirole HCl 1 mg 08/19/24 21:00 08/21/24 22:05 Ropinirole Hcl 1 Mg Tablet PO 1 mg HS HEIKE Administration Radiology Results: ITS Impressions Abdomen/Pelvis CT 08/19/24 12:11 IMPRESSION: 1. Fluid in nondilated normal. Large and small bowel consistent with nonspecific diarrhea. No other acute intra-abdominal/pelvic process. 2. Nonobstructing left nephrolithiasis. 3. Cholelithiasis. Labs Labs: Laboratory Results - last 24 hr 08/19/24 08/21/24 08/21/24 11:05 11:41 16:49 WBC RBC Hgb Hct MCV MCH MCHC RDW Plt Count MPV Immature Gran % (Auto) Neut % (Auto) Lymph % (Auto) Cameron % (Auto) Eos % (Auto) Baso % (Auto) Lymph # (Auto) Cameron # (Auto) Eos # (Auto) Baso # (Auto) Abs Immat Gran (auto) Absolute Neuts (auto) Absolute Nucleated RBC Nucleated RBC % Sodium Potassium Chloride Carbon Dioxide Anion Gap BUN Creatinine Estim Creat Clear Calc Estimated GFR Glucose POC Capillary Glucose 199 H 214 H Calcium Blood Type O Positive Antibody Screen Negative Crossmatch See Detail 08/21/24 08/21/24 08/22/24 20:24 20:47 07:32 WBC RBC Hgb 7.6 L Hct 23.9 L MCV MCH MCHC RDW Plt Count MPV Immature Gran % (Auto) Neut % (Auto) Lymph % (Auto) Cameron % (Auto) Eos % (Auto) Baso % (Auto) Lymph # (Auto) Cameron # (Auto) Eos # (Auto) Baso # (Auto) Abs Immat Gran (auto) Absolute Neuts (auto) Absolute Nucleated RBC Nucleated RBC % Sodium Potassium Chloride Carbon Dioxide Anion Gap BUN Creatinine Estim Creat Clear Calc Estimated GFR Glucose POC Capillary Glucose 155 H 141 H Calcium Blood Type Antibody Screen Crossmatch 08/22/24 08:34 WBC 8.7 RBC 2.99 L Hgb 8.1 L Hct 24.9 L MCV 83.3 MCH 27.1 MCHC 32.5 RDW 17.4 H Plt Count 224 MPV 9.3 Immature Gran % (Auto) 1.5 H Neut % (Auto) 67.6 Lymph % (Auto) 17.6 L Cameron % (Auto) 10.9 H Eos % (Auto) 2.2 Baso % (Auto) 0.2 Lymph # (Auto) 1.54 Cameron # (Auto) 1.0 H Eos # (Auto) 0.2 Baso # (Auto) 0.0 Abs Immat Gran (auto) 0.13 H Absolute Neuts (auto) 5.9 Absolute Nucleated RBC 0.060 H Nucleated RBC % 0.7 H Sodium 140 Potassium 3.2 L Chloride 105 Carbon Dioxide 26 Anion Gap 9 BUN 12 D Creatinine 0.90 Estim Creat Clear Calc 83 Estimated GFR > 60 Glucose 180 H POC Capillary Glucose Calcium 7.9 L Blood Type Antibody Screen Crossmatch
[2024-08-22] MEDS: INSULIN ASPART (*BKC) 100 UNITS/ML SUB-Q ×4 (09:55→17:47)
[2024-08-22] MEDS: INSULIN GLARGINE (*BKC) 100 UNITS/ML 36 UNITS SUB-Q ×2 (09:55→21:04)
[2024-08-22 11:56] LABS: Glucose Point of Care 178 mg/dl (65-105)
--- NOTE | 2024-08-22 12:23 | PM.CNCAR ---
Assessment and Plan Assessment and plan (1) Atrial fibrillation: Code(s): I48.91 - Unspecified atrial fibrillation Status: Acute Assessment and Plan: In regards to atrial fibrillation, he has a history of paroxysmal atrial fibrillation for which she takes Coreg 12.5 mg b.i.d. and Eliquis. He presents here to the hospital with hematochezia. Had significant drop in hemoglobin has required 3 units of blood transfusion. Hemoglobin remains low at 8.1 today. Heart rates are elevated. I will stop the Coreg 12.5 mg b.i.d. and start metoprolol 25 mg q.6 hours to achieve better rate control. Likely his AFib is driven by anemia. Continue to hold anticoagulation (2) CAD (coronary artery disease): Code(s): I25.10 - Atherosclerotic heart disease of [place] coronary artery without angina pectoris Status: Acute Assessment and Plan: Continue to hold Plavix given GI bleed. Continue statin (3) Hypertension: Qualifiers: Hypertension type: primary hypertension Qualified Code(s): I10 - Essential (primary) hypertension Code(s): I10 - Essential (primary) hypertension Status: Chronic Assessment and Plan: Blood pressure is controlled. We did not start home dose of amlodipine-benazepril due to soft blood pressure. Stop Coreg and start metoprolol for better rate control for AFib (4) Dyslipidemia: Code(s): E78.5 - Hyperlipidemia, unspecified Status: Acute Assessment and Plan: Continue statin (5) Acute blood loss anemia: Code(s): D62 - Acute posthemorrhagic anemia Status: Acute Assessment and Plan: Monitor hemoglobin and transfuse as needed History of Present Illness History of Present Illness Consult date/time: date of service: 08/22/24 12:23 Requesting physician: Libia Albrecht MD Reason For Visit: Blood Per Rectum/Abdominal Pain Narrative: 64-year-old male patient . Used to follow up with Dr. Amado. with PMH of CABG in 2004 with probably BARBER to LAD, SVG to diagonal SVG to RCA. Apparently underwent SVG to RCA an intervention 7 months after surgery. Cardiac catheterization 2011 shows occluded SVG to RCA. [place] RCA is also totally occluded with collaterals. He has a history of paroxysmal atrial fibrillation, takes Eliquis, CAD with stable angina, diabetes, HTN, GERD, hypothyroidism, SD, JULIANNE, sleep apnea. he was admitted on August 19 for blood in the stool. It seems he has 3 episodes of bloody stools at home and then 5 times after arrival to the hospital. These started 1 day prior to admission having diarrhea. Associated with abdominal pain left lower quadrant. Apparently takes Eliquis at home. He did undergo colonoscopy August 10, 2024 and underwent polypectomy. He appears to have elevated heart rates and remains in AFib with heart rates 100-110 beats per minute. Denies chest pain, shortness of breath but he feels very tired and fatigued. Not much bleeding anymore only a couple drops. Hemoglobin dropped from 11.5-6.8, hemoglobin today is 8.1. creatinine 0.9, potassium today 3.2. EKG reviewed and large bursal from that today shows AFib with RVR, old inferior and lateral SD. CT of the abdomen/pelvis showed fluid in in the nondilated small bowel and proximal colon consistent with diarrhea, no other acute intra-abdominal/pelvic process, nonobstructing left nephrolithiasis, and cholelithiasis. Review of Systems Constitutional: Constitutional: Denies chills, Denies fever(s) and Denies poor appetite Comments: Feels tired Eyes: Eyes: Denies eye discharge, Denies loss of vision and Denies eye pain ENT: Denies dizziness, Denies epistaxis, Denies nasal congestion and Denies sore throat Cardiovascular: Cardiovascular: Denies chest pain, Denies syncope, Denies pedal edema, Denies leg edema, Denies palpitations, Denies dyspnea, Denies dyspnea on exertion and Denies orthopnea Respiratory: Respiratory: Denies cough, Denies dyspnea, Denies dyspnea on exertion and Denies wheezing Gastrointestinal: Gastrointestinal: Reports abdominal pain, Reports diarrhea, Denies nausea and Denies vomiting Comments: Hematochezia Genitourinary: Genitourinary: Denies hematuria, Denies genital lesions and Denies dysuria Musculoskeletal: Musculoskeletal: Denies arthralgias, Denies joint swelling and Denies numbness Integumentary/Breasts: Skin/Breast: Denies pruritus and Denies rash Neurologic: Denies dizziness, Denies syncope, Denies loss of vision and Denies numbness Psychiatric: Psychiatric: Denies anxiety and Denies depression Endocrine: Endocrine: Denies cold intolerance, Denies heat intolerance and Denies palpitations Hematologic/Lymphatic: Hematologic/Lymphatic: Denies easy bleeding and Denies easy bruising Allergic/Immunologic: Allergic/Immunologic: Denies urticaria and Denies wheezing [facility] Past Medical History Medical History Acute blood loss anemia Atherosclerosis Bloating Blood thinned due to long-term anticoagulant use Body mass index (BMI) greater than 50 (01/03/16) CAD (coronary artery disease) Colon polyp Diabetes Diabetic peripheral neuropathy Dyslipidemia Essential (primary) hypertension Gastro-esophageal reflux disease without esophagitis History of PAT (paroxysmal atrial tachycardia) Hypertension Hypothyroidism Hypothyroidism (acquired) Inferior SD 2004 Male erectile dysfunction, unspecified Metabolic syndrome Morbid obesity with BMI of 45.0-49.9, adult Musculoskeletal pain JULIANNE (obstructive sleep apnea) Pancreatitis Post-polypectomy bleeding Pure hypercholesterolemia Rectal bleeding Sleep apnea, unspecified on CPAP Type 2 diabetes mellitus without complications Umbilical hernia Surgical History Surgical History History of coronary artery stent placement x5, 2004 Hx of appendectomy Hx of CABG 2004, patient believe 3 vessels Family History Family History Grandparent Family history of cataracts Family history of heart disease in male family member before age 55 Father Carcinoma of colon Family history of hearing loss Patient's father is Mother Family history of coronary artery disease Family history of heart disease in male family member before age 55 Sibling Patient's brother is in good health Social History Social History Smoking status: Never smoker Second hand tobacco smoke exposure: No Alcohol intake: never Drinks per week: 1 Substance use: never Substance use type: does not use Do You Feel Safe in your Home?: Yes Lack of Transportation: No Lack of Food: Never True Current Housing: I Have Housing Concerned About Future Housing: No Difficulty Paying Gas/Electric Bills: No Difficulty Paying for Meds: No Currently Unemployed: No Education: Bachelor's Degree Difficulty w/ Childcare or Family Care: No Living arrangements: with family Additional living arrangements comments: lives with his Occupation/Education: occupation 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 Gender identity (if verbalized by the patient): Male Spiritual care concerns: No Meds Home Medications and Allergies Home Medications Medication Instructions Recorded Confirmed Type carvedilol 12.5 mg tablet 12.5 mg PO Q12H 01/03/20 08/20/24 History furosemide 20 mg tablet 20 mg PO QAM PRN Edema 06/11/21 08/20/24 History apixaban 5 mg tablet (Eliquis) 5 mg PO BID #1 tablet 11/25/23 08/20/24 Rx amlodipine 5 mg-benazepril 20 mg 1 cap PO DAILY #90 caps 01/19/24 08/20/24 Rx capsule blood sugar diagnostic #400 ea 01/19/24 08/20/24 Rx ezetimibe 10 mg tablet (Zetia) 10 mg PO DAILY #90 tabs 01/19/24 08/20/24 Rx insulin regular hum U-500 conc 500 See Rx Instructions .Route 01/19/24 08/20/24 Rx unit/mL(3 mL) subcut pen (Humulin .COMPLEX #48 mL R U-500 (Conc) Insulin Kwikpen) pen needle, diabetic 32 gauge x See Rx Instructions .Route 01/19/24 08/20/24 Rx 5/32 (BD Deya 2nd Gen Pen Needle) .COMPLEX #300 ea ropinirole 1 mg tablet 1 mg PO .QHS #90 tabs 02/06/24 08/20/24 Rx empagliflozin 25 mg tablet 25 mg PO QAM #90 tabs 05/05/24 08/20/24 Rx (Jardiance) semaglutide 2 mg/dose (8 mg/3 mL) 2 mg (0.75 mL) subcut WEEKLY 90 05/26/24 08/20/24 Rx subcutaneous pen injector (Ozempic) days #9 mL clotrimazole-betamethasone 1 1 applic topical BID #45 grams 07/07/24 08/20/24 Rx %-0.05 % topical cream sildenafil (pulm.hypertension) 20 40 - 100 mg PO ONCE PRN sexual 07/07/24 08/20/24 Rx mg tablet activity #50 tabs gabapentin 300 mg capsule 300 mg PO BID #60 caps 07/16/24 08/20/24 Rx glucagon 3 mg/actuation nasal spray 3 mg intranasal ONCE PRN LOW BLOOD 08/04/24 08/20/24 History SUGAR metformin 500 mg tablet,extended 2,000 mg PO DAILY #360 tabs 08/04/24 08/20/24 Rx release 24 hr nitroglycerin 0.4 mg sublingual 0.4 mg sublingual Q5M CHEST PAIN 08/04/24 08/20/24 History tablet (Nitrostat) ranolazine 500 mg tablet,extended 500 mg PO DAILY 08/04/24 08/20/24 History release,12 hr atorvastatin 80 mg tablet 80 mg PO HS 08/19/24 08/20/24 History clopidogrel 75 mg tablet 75 mg PO DAILY 08/19/24 08/20/24 History levothyroxine 88 mcg tablet 88 mcg PO DAILY 08/19/24 08/20/24 History omeprazole 20 mg capsule,delayed 20 mg PO HS 08/19/24 08/20/24 History release Allergies Allergy/AdvReac Type Severity Reaction Status Date / Time No Known Allergies Allergy Verified 08/20/24 14:07 Vital Signs Vital Signs - 24 hr 08/21/24 13:34 08/21/24 14:34 08/21/24 15:43 Temperature 36.8 C 36.8 C 36.9 C Pulse Rate 95 91 93 Respiratory Rate 18 16 20 Blood Pressure 130/56 L 136/63 143/59 H Pulse Oximetry 96 97 98 Oxygen Delivery Fraction of Inspired Oxygen 08/21/24 15:20 08/21/24 14:00 08/21/24 16:00 Temperature 36.9 C Pulse Rate 93 93 90 Respiratory Rate 20 Blood Pressure 143/59 H Pulse Oximetry 98 Oxygen Delivery Fraction of Inspired Oxygen 08/21/24 16:00 08/21/24 18:00 08/21/24 20:15 Temperature 37.1 C Pulse Rate 95 90 Respiratory Rate 20 Blood Pressure 133/64 Pulse Oximetry 99 Oxygen Delivery Room Air Fraction of Inspired Oxygen 08/21/24 20:00 08/21/24 23:50 08/21/24 20:00 Temperature 36.6 C Pulse Rate 90 84 85 Respiratory Rate 20 20 Blood Pressure 154/52 H Pulse Oximetry 99 96 Oxygen Delivery Room Air Fraction of Inspired Oxygen 21 08/21/24 22:00 08/22/24 00:00 08/22/24 00:00 Temperature Pulse Rate 86 93 84 Respiratory Rate 20 Blood Pressure Pulse Oximetry 96 Oxygen Delivery CPAP Fraction of Inspired Oxygen 08/22/24 01:51 CDT 08/22/24 04:16 08/22/24 04:00 Temperature 36.9 C Pulse Rate 77 81 81 Respiratory Rate 20 20 Blood Pressure 131/62 Pulse Oximetry 94 98 Oxygen Delivery CPAP Fraction of Inspired Oxygen 21 08/22/24 04:00 08/22/24 06:00 08/22/24 06:56 Temperature Pulse Rate 81 111 H 133 H Respiratory Rate 20 Blood Pressure 155/68 H Pulse Oximetry 98 Oxygen Delivery Room Air Fraction of Inspired Oxygen 08/22/24 07:10 08/22/24 08:00 08/22/24 08:00 Temperature 37.0 C Pulse Rate 118 H 106 H 108 H Respiratory Rate 20 Blood Pressure 142/54 H Pulse Oximetry 93 Oxygen Delivery Fraction of Inspired Oxygen 08/22/24 09:10 08/22/24 10:00 08/22/24 12:00 Temperature 36.7 C Pulse Rate 106 H 103 H 94 Respiratory Rate 20 20 Blood Pressure 120/54 L Pulse Oximetry 93 93 Oxygen Delivery Room Air Fraction of Inspired Oxygen Exam Const: General: cooperative, comfortable, no acute distress, alert, awake and well nourished Nutritional Appearance: well nourished Orientation/consciousness: patient oriented x3 HENMT: Head: normal to inspection, normocephalic and atraumatic Ears: hearing grossly normal bilaterally Face/Nose/Sinus: Normal external nose present, Normal nares present, no nasal discharge noted, normal facial exam and No erythema Face and sinus: normal facial exam and no erythema Mouth: No drooling and No restricted motion Throat: uvula midline Eyes: General: appearance normal, both eyes and all related structures Alignment and Position: position normal Conjunctivae: conjunctivae normal Sclera: sclerae normal Direct Ophthalmoscopy: No photophobia Neck: Neck: normal visual inspection and no JVD Thyroid: thyroid normal Carotids: no bruits Lymphatic: lymphedema not noted Chest: Chest palpation & inspection: normal inspection of the chest and no tenderness Resp: Effort & Inspection: normal respiratory effort and no nasal flaring Auscultation: clear to auscultation bilaterally, no crackles, no rales and no wheezes Cardio: Jugular venous distension: no JVD Rate: regular rate Rhythm: regular rhythm and abnormal rhythm Heart sounds: S1 normal heart sound present, S2 normal heart sound present, no murmurs and no rubs GI: Inspection: non-distended GI Palp: No abdominal tenderness and No Soft to palpation Auscultation: normal bowel sounds Rectal Exam: deferred : General: No no CVA tenderness Back/Spine/Pelvis: Back: No no CVA tenderness Cervical Spine: cervical ROM normal Skin: General skin exam: normal color and rashes and/or lesions noted Neuro: General: patient oriented x3 Cranial nerves: No CN's II-XII intact bilaterally Speech: normal speech Motor exam (neuro): no tremors Extrem: General: normal to inspection and pedal edema present Psych: Appearance: grossly normal and well kempt Speech and movement: Normal speech and movement present Affect: normal affect Results Labs and Meds 08/22/24 08:34 08/22/24 08:34 Lab results: CBC 08/21/24 08/22/24 Range/Units 20:24 08:34 WBC 8.7 (4.5-10.0) K/mm3 RBC 2.99 L (4.6-6.20) M/mm3 Hgb 7.6 L 8.1 L (14.0-18.0) g/dL Hct 23.9 L 24.9 L (42.0-52.0) % Plt Count 224 (150-375) k/mm3 Lymph # (Auto) 1.54 (0.9-3.2) K/mm3 [place] # (Auto) 1.0 H (0.1-0.6) K/mm3 Eos # (Auto) 0.2 (0-0.3) K/mm3 Baso # (Auto) 0.0 (0.0-0.1) K/mm3 Comprehensive Metabolic Panel 08/22/24 Range/Units 08:34 Sodium 140 (137-145) mmol/L Potassium 3.2 L (3.4-5.0) mmol/L Chloride 105 (98-107) mmol/L Carbon Dioxide 26 (22-30) mmol/L BUN 12 D (9-20) mg/dL Creatinine 0.90 (0.7-1.3) mg/dL Glucose 180 H (65-110) mg/dL Calcium 7.9 L (8.4-10.2) mg/dL Intake and Output 08/22/24 08/22/24 08/22/24 00:59 07:59 15:59 Intake Total 240 Output Total 600 Balance -360 Intake: Oral 240 Output: Urine 600 Patient Weight 08/22/24 22:59 Weight 116 kg
[2024-08-22] MEDS: METOPROLOL TARTRATE 25 MG TABLET PO ×3 (13:21→23:27)
[2024-08-22] MEDS: POTASSIUM CHLORIDE 20 MEQ PACKET (FOR LIQUID) 40 MEQ PO (13:21)
--- NOTE | 2024-08-22 14:32 | P.PNGI_ITS ---
Progress Note: A&P Assessment and Plan (1) Post-polypectomy bleeding: Status: Acute Assessment and Plan: he had several adenomatous polyps removed, largest in ascending- noted clotted blood without active bleeding, this was treated with epi and more clips no more bleeding but required one more unit yesterday recommend to hold blood thinners at least for 7 days hopefully home tomorrow (2) Rectal bleeding: Code(s): K62.5 - Hemorrhage of anus and rectum Status: Acute Assessment and Plan: resolved (3) Acute blood loss anemia: Code(s): D62 - Acute posthemorrhagic anemia Status: Acute Assessment and Plan: blood thinners on hold post polypectomy bleeding treated (4) Blood thinned due to long-term anticoagulant use: Code(s): Z79.01 - prison (current) use of anticoagulants Status: Acute Assessment and Plan: on hold (5) Type 2 diabetes mellitus without complications: Qualifiers: Diabetes mellitus [facility] insulin use: with oysterman use Qualified Code(s): E11.9 - Type 2 diabetes mellitus without complications; 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 Code(s): E11.9 - Type 2 diabetes mellitus without complications Status: Chronic (6) GI bleed: Qualifiers: GI bleed type/associated pathology: unspecified gastrointestinal hemorrhage type Qualified Code(s): K92.2 - Gastrointestinal hemorrhage, unspecified Code(s): K92.2 - Gastrointestinal hemorrhage, unspecified Status: Acute (7) Colon polyp: Code(s): K63.5 - Polyp of colon Status: Acute Assessment and Plan: next colonoscopy in 2 years Subjective Date/time seen: 08/22/24 14:32 Interval history: received one more unit prbc yesterday but no more bleeding- last BM only minimal amount better after last blood transfusion and now getting iv iron Review of Systems Review of Systems: All systems reviewed & are unremarkable except as noted in HPI and below Exam Const: General: comfortable and no acute distress HENMT: Face/Nose/Sinus: Normal nares present Eyes: General: appearance normal, both eyes and all related structures Neck: Neck: supple Resp: Auscultation: clear to auscultation bilaterally Cardio: Rhythm: abnormal rhythm GI: Inspection: non-distended GI Palp: Yes Soft to palpation and No Tenderness to palpation present (GI) Auscultation: normal bowel sounds Skin: General skin exam: normal color Neuro: Speech: normal speech Motor exam (neuro): 5/5 motor strength present throughout Extrem: General: normal to inspection Psych: Mental Status: mental status grossly normal Objective Data Vital Signs Vital Signs: Vital Signs - 24 hr 08/21/24 15:43 08/21/24 16:00 08/21/24 16:00 Temperature 98.4 F Pulse Rate 93 90 Respiratory Rate 20 Blood Pressure 143/59 H Pulse Oximetry 98 Oxygen Delivery Room Air Fraction of Inspired Oxygen 08/21/24 18:00 08/21/24 20:15 08/21/24 20:00 Temperature 98.7 F Pulse Rate 95 90 90 Respiratory Rate 20 20 Blood Pressure 133/64 Pulse Oximetry 99 99 Oxygen Delivery Room Air Fraction of Inspired Oxygen 21 08/21/24 23:50 08/21/24 20:00 08/21/24 22:00 Temperature 97.8 F Pulse Rate 84 85 86 Respiratory Rate 20 Blood Pressure 154/52 H Pulse Oximetry 96 Oxygen Delivery Fraction of Inspired Oxygen 08/22/24 00:00 08/22/24 00:00 08/22/24 01:51 CDT Temperature Pulse Rate 93 84 77 Respiratory Rate 20 Blood Pressure Pulse Oximetry 96 Oxygen Delivery CPAP Fraction of Inspired Oxygen 21 08/22/24 04:16 08/22/24 04:00 08/22/24 04:00 Temperature 98.4 F Pulse Rate 81 81 81 Respiratory Rate 20 20 Blood Pressure 131/62 Pulse Oximetry 94 98 Oxygen Delivery CPAP Fraction of Inspired Oxygen 21 08/22/24 06:00 08/22/24 06:56 08/22/24 07:10 Temperature Pulse Rate 111 H 133 H 118 H Respiratory Rate 20 Blood Pressure 155/68 H Pulse Oximetry 98 Oxygen Delivery Room Air Fraction of Inspired Oxygen 08/22/24 08:00 08/22/24 08:00 08/22/24 09:10 Temperature 98.6 F Pulse Rate 106 H 108 H 106 H Respiratory Rate 20 20 Blood Pressure 142/54 H Pulse Oximetry 93 93 Oxygen Delivery Room Air Fraction of Inspired Oxygen 08/22/24 10:00 08/22/24 12:00 08/22/24 13:21 Temperature 98.1 F Pulse Rate 103 H 94 105 H Respiratory Rate 20 Blood Pressure 120/54 L Pulse Oximetry 93 Oxygen Delivery Fraction of Inspired Oxygen 08/22/24 12:00 Temperature Pulse Rate 119 H Respiratory Rate Blood Pressure Pulse Oximetry Oxygen Delivery Fraction of Inspired Oxygen Intake/Output Intake/Output: Intake & Output 08/19/24 08/20/24 08/21/24 08/22/24 23:59 23:59 23:59 22:59 Intake Total 2870 2710 2335 680 Output Total 800 1015 4225 1700 Balance 8453 7991 -2885 -6324 Meds/Results Medications: Active Medications Generic Name Dose Route Start Last Admin Trade Name Freq PRN Reason Stop Dose Admin Acetaminophen 650 mg 08/21/24 09:34 Acetaminophen 325 Mg Tablet PO Q6H PRN Mild Pain (1-3) or Fever Atorvastatin Calcium 80 mg 08/19/24 21:00 08/21/24 22:04 Atorvastatin 40 Mg Tablet PO 80 mg HS HEIKE Administration Benzocaine 1 lozenge 08/21/24 13:25 08/21/24 13:49 Benzocaine/Menthol (*Bkc) 18 Ea Lozenge PO 1 lozenge PRN PRN Administration Sore Throat Clotrimazole 1 applic 08/19/24 18:55 08/22/24 09:31 Betamethasone/Clotrimazole Cream 15 Gm Tube TOPICAL 1 applic BID HEIKE Administration Dextrose 12.5 gm 08/19/24 14:31 Dextrose 50% 25 Gm/50 Ml Syringe IV PUSH PRN PRN Hypoglycemia Protocol Ezetimibe 10 mg 08/20/24 09:00 08/22/24 09:28 Ezetimibe 10 Mg Tablet PO 10 mg DAILY HEIKE Administration Empagliflozin 25 mg 08/20/24 09:00 08/22/24 09:28 Empagliflozin 25 Mg Tablet PO 25 mg QAM HEIKE Administration Furosemide 20 mg 08/20/24 08:35 08/22/24 09:28 Furosemide 20 Mg Tablet PO 20 mg QAM HEIKE Administration Gabapentin 300 mg 08/19/24 18:55 08/22/24 09:29 Gabapentin 300 Mg Capsule PO 300 mg BID HEIKE Administration Glucagon 1 mg 08/19/24 14:31 Glucagon For Inj 1 Mg Vial IM PRN PRN Hypoglycemia Protocol Glucose 15 gm 08/19/24 14:31 Glucose Oral Gel 15 Gm Of Glucse In 37.5 Gm Tube PO PRN PRN Hypoglycemia Protocol Dextrose 1,000 mls @ 100 mls/hr 08/19/24 14:31 Dextrose 5% 1,000 Ml IVPB PRN PRN Hypoglycemia Protocol Iron Sucrose 100 mg/ Sodium 55 mls @ 220 mls/hr 08/21/24 09:15 08/22/24 09:30 Chloride IVPB 220 mls/hr DAILY HEIKE Administration Insulin Aspart 4 - 8 units 08/19/24 17:00 08/22/24 12:13 Insulin Aspart (*Bkc) 100 Units/Ml SUB-Q Not Given TIDWM HEIKE Protocol Insulin Aspart 3 units 08/21/24 12:00 08/22/24 12:42 Insulin Aspart (*Bkc) 100 Units/Ml SUB-Q 3 units TIDWM HEIKE Administration Insulin Glargine 36 units 08/20/24 21:00 08/22/24 09:55 Insulin Glargine (*Bkc) 100 Units/Ml SUB-Q 36 units Q12HR HEIKE Administration Levothyroxine Sodium 88 mcg 08/20/24 06:30 08/22/24 06:21 Levothyroxine Sodium 88 Mcg Tablet PO 88 mcg DAILY@0630 HEIKE Administration Metoprolol Tartrate 25 mg 08/22/24 12:55 08/22/24 13:21 Metoprolol Tartrate 25 Mg Tablet PO 25 mg Q6HR HEIKE Administration Ondansetron HCl 4 mg 08/19/24 20:30 08/20/24 13:39 Ondansetron Inj 4 Mg/2 Ml Vial IV PUSH 4 mg Q6H PRN Administration Nausea And Vomiting Pantoprazole Sodium 40 mg 08/20/24 09:00 08/22/24 09:29 Pantoprazole Sodium Iv 40 Mg Vial IV PUSH 40 mg QAM HEIKE Administration Ranolazine 500 mg 08/20/24 09:00 08/22/24 09:29 Ranolazine 500 Mg Tab.Er.12h PO 500 mg DAILY HEIKE Administration Ropinirole HCl 1 mg 08/19/24 21:00 08/21/24 22:05 Ropinirole Hcl 1 Mg Tablet PO 1 mg HS HEIKE Administration Radiology Results: ITS Impressions Abdomen/Pelvis CT 08/19/24 12:11 IMPRESSION: 1. Fluid in nondilated normal. Large and small bowel consistent with nonspecific diarrhea. No other acute intra-abdominal/pelvic process. 2. Nonobstructing left nephrolithiasis. 3. Cholelithiasis. Labs Labs: Laboratory Results - last 24 hr 08/19/24 08/21/24 08/21/24 11:05 16:49 20:24 WBC RBC Hgb 7.6 L Hct 23.9 L MCV MCH MCHC RDW Plt Count MPV Immature Gran % (Auto) Neut % (Auto) Lymph % (Auto) [place] % (Auto) Eos % (Auto) Baso % (Auto) Lymph # (Auto) [place] # (Auto) Eos # (Auto) Baso # (Auto) Abs Immat Gran (auto) Absolute Neuts (auto) Absolute Nucleated RBC Nucleated RBC % Sodium Potassium Chloride Carbon Dioxide Anion Gap BUN Creatinine Estim Creat Clear Calc Estimated GFR Glucose POC Capillary Glucose 214 H Calcium Crossmatch See Detail 08/21/24 08/22/24 08/22/24 20:47 07:32 08:34 WBC 8.7 RBC 2.99 L Hgb 8.1 L Hct 24.9 L MCV 83.3 MCH 27.1 MCHC 32.5 RDW 17.4 H Plt Count 224 MPV 9.3 Immature Gran % (Auto) 1.5 H Neut % (Auto) 67.6 Lymph % (Auto) 17.6 L [place] % (Auto) 10.9 H Eos % (Auto) 2.2 Baso % (Auto) 0.2 Lymph # (Auto) 1.54 [place] # (Auto) 1.0 H Eos # (Auto) 0.2 Baso # (Auto) 0.0 Abs Immat Gran (auto) 0.13 H Absolute Neuts (auto) 5.9 Absolute Nucleated RBC 0.060 H Nucleated RBC % 0.7 H Sodium 140 Potassium 3.2 L Chloride 105 Carbon Dioxide 26 Anion Gap 9 BUN 12 D Creatinine 0.90 Estim Creat Clear Calc 83 Estimated GFR > 60 Glucose 180 H POC Capillary Glucose 155 H 141 H Calcium 7.9 L Crossmatch 08/22/24 11:33 WBC RBC Hgb Hct MCV MCH MCHC RDW Plt Count MPV Immature Gran % (Auto) Neut % (Auto) Lymph % (Auto) [place] % (Auto) Eos % (Auto) Baso % (Auto) Lymph # (Auto) [place] # (Auto) Eos # (Auto) Baso # (Auto) Abs Immat Gran (auto) Absolute Neuts (auto) Absolute Nucleated RBC Nucleated RBC % Sodium Potassium Chloride Carbon Dioxide Anion Gap BUN Creatinine Estim Creat Clear Calc Estimated GFR Glucose POC Capillary Glucose 178 H Calcium Crossmatch
[2024-08-22 17:33] LABS: Glucose Point of Care 207 mg/dl (65-105)
--- NOTE | 2024-08-22 18:23 | PC.NURSE ---
This RN gave report to second medical RN, Heather @ [phone].
--- NOTE | 2024-08-22 18:47 | PC.NURSE ---
This pt transferred to second medical room 250 @ [phone].
[2024-08-22] MEDS: rOPINIRole HCL 1 MG TABLET PO (21:04)
[2024-08-22] MEDS: ATORVASTATIN 40 MG TABLET 80 MG PO (21:04)
[2024-08-22 22:17] LABS: Glucose Point of Care 176 mg/dl (65-105)
[2024-08-23] VITALS (12 sets, daily range): BP systolic 105–130; BP diastolic 53–72; PULSE 70–116; RESP 18–20; TEMP 36.2–36.8; O2SAT 93–100
[2024-08-23 06:20] LABS: Basophils Absolute Auto 0.1 K/mm3 (0.0-0.1); Basophils Percent Auto 0.6 % (0.2-1.2); Eosinophils Absolute Auto 0.2 K/mm3 (0-0.3); Hemoglobin 8.4 g/dL (14.0-18.0); Immature Granulocyte Absolute 0.27 K/mm3 (0.00-0.031); Immature Granulocyte Percent A 3.4 % (0-0.5); Lymphocytes Percent Auto 21.1 % (18.3-44.2); Mean Corpuscular HGB Conc 31.1 g/dl (32-36); Mean Corpuscular Hemoglobin 26.6 pg (26-34); Mean Corpuscular Volume 85.4 fl (80-100); Mean Platelet Volume 9.6 fl (7.4-10.4); Monocytes Absolute Auto 0.9 K/mm3 (0.1-0.6); Monocytes Percent Auto 11.1 % (2.6-8.5); Neutrophils Absolute Auto 4.9 K/mm3 (1.3-6.7); Neutrophils Percent Auto 60.8 % (45.5-73.1); Nucleated Red Blood Cells Perc 0.9 % (0.0-0.2); Platelet Count Result 277 k/mm3 (150-375); Red Blood Count 3.16 M/mm3 (4.6-6.20); Red Cell Distribution Width 17.5 % (11.5-14.5)
[2024-08-23] MEDS: METOPROLOL TARTRATE 25 MG TABLET PO (06:24)
[2024-08-23] MEDS: LEVOTHYROXINE SODIUM 88 MCG TABLET PO (06:24)
[2024-08-23 06:30] LABS: Anion Gap 6 mmol/L (4-12); Blood Urea Nitrogen 11 mg/dL (9-20); Calcium 8.1 mg/dL (8.4-10.2); Carbon Dioxide 30 mmol/L (22-30); Chloride 103 mmol/L (98-107); Estimated CRCL calculation 83 ml/min; Estimated Glomerular Filt Rate > 60; Glucose 132 mg/dL (65-110); Potassium 3.5 mmol/L (3.4-5.0); Sodium 139 mmol/L (137-145)
[2024-08-23 08:08] LABS: Glucose Point of Care 156 mg/dl (65-105)
[2024-08-23] MEDS: FUROSEMIDE 20 MG TABLET PO (08:33)
[2024-08-23] MEDS: EZETIMIBE 10 MG TABLET PO (08:33)
[2024-08-23] MEDS: INSULIN ASPART (*BKC) 100 UNITS/ML SUB-Q ×3 (08:33→17:48)
[2024-08-23] MEDS: BETAMETHASONE/CLOTRIMAZOLE CREAM 15 GM TUBE 1 APPLIC TOPICAL ×2 (08:34→17:49)
[2024-08-23] MEDS: EMPAGLIFLOZIN 25 MG TABLET PO (08:34)
[2024-08-23] MEDS: RANOLAZINE 500 MG TAB.ER.12H PO (08:34)
[2024-08-23] MEDS: PANTOPRAZOLE SODIUM IV 40 MG VIAL IV PUSH (08:34)
[2024-08-23] MEDS: GABAPENTIN 300 MG CAPSULE PO ×2 (08:34→17:47)
--- NOTE | 2024-08-23 08:35 | PM.IMPN ---
Progress Note: A&P Assessment and Plan (1) Acute upper GI bleeding: Code(s): K92.2 - Gastrointestinal hemorrhage, unspecified Status: Acute (2) Type 2 diabetes mellitus without complications: Qualifiers: Diabetes mellitus terminal make up operator insulin use: with terminal make up operator use Qualified Code(s): E11.9 - Type 2 diabetes mellitus without complications; Z79.4 - terminal superintendent (current) use of insulin Code(s): E11.9 - Type 2 diabetes mellitus without complications Status: Chronic (3) Hypothyroidism: Qualifiers: Hypothyroidism type: acquired Qualified Code(s): E03.9 - Hypothyroidism, unspecified Code(s): E03.9 - Hypothyroidism, unspecified Status: Acute (4) Hypertension: Qualifiers: Hypertension type: primary hypertension Qualified Code(s): I10 - Essential (primary) hypertension Code(s): I10 - Essential (primary) hypertension Status: Chronic (5) JULIANNE (obstructive sleep apnea): Code(s): G47.33 - Obstructive sleep apnea (adult) (pediatric) Status: Chronic Plan Acute GI bleed: Qualifiers: GI bleed type/associated pathology: unspecified gastrointestinal hemorrhage type Qualified Code(s): K92.2 - Gastrointestinal hemorrhage, unspecified Code(s): K92.2 - Gastrointestinal hemorrhage, unspecified Status: Acute Assessment and Plan: - Hgb 11.5 -> 9.3. previously 13.1 on 12/20/2023. MCV normal, mildly reduced MCHC. - hemoccult was positive - on anticoagulation/antiplatelet: Eliquis and Plavix, held - CT abd/pelvis: 1. Fluid in nondilated normal. Large and small bowel consistent with nonspecific diarrhea. No other acute intra-abdominal/pelvic process. 2. Nonobstructing left nephrolithiasis. 3. Cholelithiasis. - GI consulted, GI found out a single 15 mm ulcer in the ascending colon Patient does have bloody stools today. Denies abdomen pain, nausea vomiting GI recommends to hold blood thinners at least for 7 days Acute on chronic blood-loss anemia Hemoglobin 13.1 December 19, 2021 - trend H&H q.4 hours x3 - started on pantoprazole IVP daily - last colonoscopy on 08/10/2024 and showed colonic polyps with polypectomy and internal hemorrhoids - monitor hemodynamic stability and telemetry Given drop in hemoglobin and soft BP, will transfuse 1 unit. Continue to trend H&H. Follow-up ferritin 7.38, and iron 22, iron saturation 8% Patient has iron deficient anemia due to blood loss Start Venofer 100 mg IV daily 08/21 Hemoglobin is trending up 8.4 today will change to ferrous sulfate 325 mg b.i.d. p.o. p.o. on discharge Paroxysmal AFib RVR Now patient has AFib Hold Eliquis because of active bleeding Consult cardiology for evaluation and treatment Appreciate cardiology's consultation, band bias machine operator recommends to stop the Coreg 12.5 mg b.i.d. and start metoprolol 25 mg q.6 hours to achieve better rate control. Rate is better controlled, titration per band bias machine operator may change to metoprolol succinate on discharge Acquired hypothyroidism Continue Synthroid 88 mcg daily p.o. Type 2 diabetes mellitus without complications: Qualifiers: Diabetes mellitus terminal make up operator insulin use: with terminal make up operator use Qualified Code(s): E11.9 - Type 2 diabetes mellitus without complications; Z79.4 - terminal superintendent (current) use of insulin Code(s): E11.9 - Type 2 diabetes mellitus without complications Status: Chronic Assessment and Plan: - hypoglycemia protocol - POC blood glucose ACHS - home medication: Continue Jardiance. Held Ozempic (NF), metformin, and U-500 Humulin R held on 260u total (NF). U-500 converted to Lantus at 70% of original dose and divided BID for Lantus 90 BID. given how high this dose is and that patient will be NPO at midnight, will cut back to 36 BID of Lantus. - correct regimen ordered - high dose TIDWM, based off BMI - A1C 6.4% in 2020, update Resume home medication on discharge. Patient needs to see primary care doctor in 1 week to adjust medication Hypertension: Qualifiers: Hypertension type: primary hypertension Qualified Code(s): I10 - Essential (primary) hypertension Code(s): I10 - Essential (primary) hypertension Status: Chronic Assessment and Plan: - chronic, currently 99/58 - home medications: hold amlodipine-benazepril, carvedilol Blood pressure stable without hypertension medication Continue Hold hypertension medication on discharge, resume medication per primary care doctor if blood pressure bone postop JULIANNE (obstructive sleep apnea): Code(s): G47.33 - Obstructive sleep apnea (adult) (pediatric) Status: Chronic Assessment and Plan: - continue home CPAP May discharge patient today if it is approved by GI and band bias machine operator Subjective Date/time seen: 08/23/24 08:35 Interval history: I saw examined patient today. Patient is afebrile, blood pressure stable, labs reviewed. Hemoglobin 8.4 today. Patient states he has blood in in stools today. Patient denies abdomen pain Patient still has general weakness. Patient was noticed have AFib RVR over the night, but rate is much better controlled now patient has AFib Exam Narrative: GENERAL: Pleasant, in no acute distress. Well-nourished. - EYES: EOMI. Anicteric. Pale - HENT: Moist mucous membranes. - LUNGS: Clear to auscultation bilaterally, no wheezing, rhonchi, or rales. - CARDIOVASCULAR: Irregular irregular rhythm, rate is controlled. No murmur. No JVD. - ABDOMEN: Soft, non-tender and non-distended. No palpable masses. - EXTREMITIES: No edema. Peripheral pulses 2+. Non-tender. - NEUROLOGIC: No focal neurological deficits. CN II-XII grossly intact. General weakness - PSYCHIATRIC: Awake, Alert and oriented x 3. Appropriate mood and affect. - SKIN: No rashes or lesions. Warm. - LYMPH: No cervical lymphadenopathy. Objective Data Vital Signs Vital Signs: Vital Signs - 24 hr 08/22/24 09:10 08/22/24 10:00 08/22/24 12:00 Temperature 98.1 F Pulse Rate 106 H 103 H 94 Respiratory Rate 20 20 Blood Pressure 120/54 L Pulse Oximetry 93 93 Oxygen Delivery Room Air Fraction of Inspired Oxygen 08/22/24 13:21 08/22/24 12:00 08/22/24 16:00 Temperature 98.6 F Pulse Rate 105 H 119 H 91 Respiratory Rate 12 Blood Pressure 105/52 L Pulse Oximetry 94 Oxygen Delivery Fraction of Inspired Oxygen 08/22/24 17:49 08/22/24 16:00 08/22/24 19:03 Temperature 98.1 F Pulse Rate 107 H 97 110 H Respiratory Rate 20 Blood Pressure 104/57 L Pulse Oximetry 97 Oxygen Delivery Fraction of Inspired Oxygen 08/22/24 18:50 08/22/24 22:06 08/22/24 20:00 Temperature 98.4 F Pulse Rate 86 103 H Respiratory Rate 16 Blood Pressure 117/49 L Pulse Oximetry 95 Oxygen Delivery Room Air Fraction of Inspired Oxygen 08/22/24 20:00 08/22/24 23:27 08/23/24 00:00 Temperature Pulse Rate 110 H 110 H 103 H Respiratory Rate 20 Blood Pressure Pulse Oximetry 97 Oxygen Delivery Room Air Fraction of Inspired Oxygen 21 08/23/24 04:00 08/23/24 06:24 08/23/24 06:26 Temperature 97.3 F L Pulse Rate 86 94 82 Respiratory Rate 18 Blood Pressure 114/67 Pulse Oximetry 94 Oxygen Delivery Fraction of Inspired Oxygen 08/23/24 08:00 Temperature 97.2 F L Pulse Rate 90 Respiratory Rate 18 Blood Pressure 109/63 Pulse Oximetry 96 Oxygen Delivery Fraction of Inspired Oxygen Intake/Output Intake/Output: Intake & Output 08/21/24 08/22/24 08/22/24 08/23/24 00:59 00:59 23:59 23:59 Intake Total 500 Output Total 1200 Balance -700 Meds/Results Medications: Active Medications Generic Name Dose Route Start Last Admin Trade Name Freq PRN Reason Stop Dose Admin Acetaminophen 650 mg 08/21/24 09:34 Acetaminophen 325 Mg Tablet PO Q6H PRN Mild Pain (1-3) or Fever Atorvastatin Calcium 80 mg 08/19/24 21:00 08/22/24 21:04 Atorvastatin 40 Mg Tablet PO 80 mg HS HEIKE Administration Benzocaine 1 lozenge 08/21/24 13:25 08/21/24 13:49 Benzocaine/Menthol (*Bkc) 18 Ea Lozenge PO 1 lozenge PRN PRN Administration Sore Throat Clotrimazole 1 applic 08/19/24 18:55 08/22/24 17:50 Betamethasone/Clotrimazole Cream 15 Gm Tube TOPICAL 1 applic BID HEIKE Administration Dextrose 12.5 gm 08/19/24 14:31 Dextrose 50% 25 Gm/50 Ml Syringe IV PUSH PRN PRN Hypoglycemia Protocol Ezetimibe 10 mg 08/20/24 09:00 08/22/24 09:28 Ezetimibe 10 Mg Tablet PO 10 mg DAILY HEIKE Administration Empagliflozin 25 mg 08/20/24 09:00 08/22/24 09:28 Empagliflozin 25 Mg Tablet PO 25 mg QAM HEIKE Administration Furosemide 20 mg 08/20/24 08:35 08/22/24 09:28 Furosemide 20 Mg Tablet PO 20 mg QAM HEIKE Administration Gabapentin 300 mg 08/19/24 18:55 08/22/24 17:49 Gabapentin 300 Mg Capsule PO 300 mg BID HEIKE Administration Glucagon 1 mg 08/19/24 14:31 Glucagon For Inj 1 Mg Vial IM PRN PRN Hypoglycemia Protocol Glucose 15 gm 08/19/24 14:31 Glucose Oral Gel 15 Gm Of Glucse In 37.5 Gm Tube PO PRN PRN Hypoglycemia Protocol Dextrose 1,000 mls @ 100 mls/hr 08/19/24 14:31 Dextrose 5% 1,000 Ml IVPB PRN PRN Hypoglycemia Protocol Iron Sucrose 100 mg/ Sodium 55 mls @ 220 mls/hr 08/21/24 09:15 08/22/24 09:45 Chloride IVPB Infused DAILY HEIKE Infusion Insulin Aspart 4 - 8 units 08/19/24 17:00 08/22/24 17:47 Insulin Aspart (*Bkc) 100 Units/Ml SUB-Q 4 units TIDWM HEIKE Administration Protocol Insulin Aspart 3 units 08/21/24 12:00 08/22/24 17:47 Insulin Aspart (*Bkc) 100 Units/Ml SUB-Q 3 units TIDWM HEIKE Administration Insulin Glargine 36 units 08/20/24 21:00 08/22/24 21:04 Insulin Glargine (*Bkc) 100 Units/Ml SUB-Q 36 units Q12HR HEIKE Administration Levothyroxine Sodium 88 mcg 08/20/24 06:30 08/23/24 06:24 Levothyroxine Sodium 88 Mcg Tablet PO 88 mcg DAILY@0630 HEIKE Administration Metoprolol Tartrate 25 mg 08/22/24 12:55 08/23/24 06:24 Metoprolol Tartrate 25 Mg Tablet PO 25 mg Q6HR HEIKE Administration Ondansetron HCl 4 mg 08/19/24 20:30 08/20/24 13:39 Ondansetron Inj 4 Mg/2 Ml Vial IV PUSH 4 mg Q6H PRN Administration Nausea And Vomiting Pantoprazole Sodium 40 mg 08/20/24 09:00 08/22/24 09:29 Pantoprazole Sodium Iv 40 Mg Vial IV PUSH 40 mg QAM HEIKE Administration Ranolazine 500 mg 08/20/24 09:00 08/22/24 09:29 Ranolazine 500 Mg Tab.Er.12h PO 500 mg DAILY HEIKE Administration Ropinirole HCl 1 mg 08/19/24 21:00 08/22/24 21:04 Ropinirole Hcl 1 Mg Tablet PO 1 mg HS HEIKE Administration Radiology Results: ITS Impressions Abdomen/Pelvis CT 08/19/24 12:11 IMPRESSION: 1. Fluid in nondilated normal. Large and small bowel consistent with nonspecific diarrhea. No other acute intra-abdominal/pelvic process. 2. Nonobstructing left nephrolithiasis. 3. Cholelithiasis. Labs Labs: Laboratory Results - last 24 hr 08/22/24 08/22/24 08/22/24 08:34 11:33 17:27 WBC 8.7 RBC 2.99 L Hgb 8.1 L Hct 24.9 L MCV 83.3 MCH 27.1 MCHC 32.5 RDW 17.4 H Plt Count 224 MPV 9.3 Immature Gran % (Auto) 1.5 H Neut % (Auto) 67.6 Lymph % (Auto) 17.6 L [place] % (Auto) 10.9 H Eos % (Auto) 2.2 Baso % (Auto) 0.2 Lymph # (Auto) 1.54 [place] # (Auto) 1.0 H Eos # (Auto) 0.2 Baso # (Auto) 0.0 Abs Immat Gran (auto) 0.13 H Absolute Neuts (auto) 5.9 Absolute Nucleated RBC 0.060 H Nucleated RBC % 0.7 H Sodium 140 Potassium 3.2 L Chloride 105 Carbon Dioxide 26 Anion Gap 9 BUN 12 D Creatinine 0.90 Estim Creat Clear Calc 83 Estimated GFR > 60 Glucose 180 H POC Capillary Glucose 178 H 207 H Calcium 7.9 L 08/22/24 08/23/24 08/23/24 21:59 05:55 07:51 WBC 8.0 RBC 3.16 L Hgb 8.4 L Hct 27.0 L MCV 85.4 MCH 26.6 MCHC 31.1 L RDW 17.5 H Plt Count 277 MPV 9.6 Immature Gran % (Auto) 3.4 H Neut % (Auto) 60.8 Lymph % (Auto) 21.1 [place] % (Auto) 11.1 H Eos % (Auto) 3.0 Baso % (Auto) 0.6 Lymph # (Auto) 1.70 [place] # (Auto) 0.9 H Eos # (Auto) 0.2 Baso # (Auto) 0.1 Abs Immat Gran (auto) 0.27 H Absolute Neuts (auto) 4.9 Absolute Nucleated RBC 0.070 H Nucleated RBC % 0.9 H Sodium 139 Potassium 3.5 Chloride 103 Carbon Dioxide 30 Anion Gap 6 BUN 11 Creatinine 0.90 Estim Creat Clear Calc 83 Estimated GFR > 60 Glucose 132 H POC Capillary Glucose 176 H 156 H Calcium 8.1 L
[2024-08-23] MEDS: IRON SUCROSE COMPLEX 100 MG in SODIUM CHLORIDE 0.9% IV 50 ML 220 MG IVPB (08:37)
[2024-08-23] MEDS: INSULIN GLARGINE (*BKC) 100 UNITS/ML 36 UNITS SUB-Q ×2 (08:37→20:54)
[2024-08-23] MEDS: FERROUS SULFATE 325 MG TABLET DR PO ×2 (09:54→17:47)
--- NOTE | 2024-08-23 11:16 | PM.PNCARD ---
Progress Note: A&P Assessment and Plan (1) Atrial fibrillation: Code(s): I48.91 - Unspecified atrial fibrillation Status: Acute Assessment and Plan: In regards to atrial fibrillation, he has a history of paroxysmal atrial fibrillation for which she takes Coreg 12.5 mg b.i.d. and Eliquis. He presents here to the hospital with hematochezia. Had significant drop in hemoglobin has required 3 units of blood transfusion. Hemoglobin remains low at 8.4 today. Heart rates are elevated intermittently. Shifted to metoprolol yesterday for better rate control. Remains intermittently tachycardic. Will increase metoprolol to 37.5mg q6h. If he is rate controlled with this dose throughout today and tonight, would shift him to equivalent dose of ToprolXL at discharge. Continue to hold anticoagulation Cardiology will see him on an as needed basis. Please call with questions. (2) CAD (coronary artery disease): Code(s): I25.10 - Atherosclerotic heart disease of [place] coronary artery without angina pectoris Status: Acute Assessment and Plan: Continue to hold Plavix given GI bleed. Continue statin (3) Hypertension: Qualifiers: Hypertension type: primary hypertension Qualified Code(s): I10 - Essential (primary) hypertension Code(s): I10 - Essential (primary) hypertension Status: Chronic Assessment and Plan: Blood pressure is controlled. We did not start home dose of amlodipine-benazepril due to soft blood pressure. Stop Coreg and start metoprolol for better rate control for AFib (4) Dyslipidemia: Code(s): E78.5 - Hyperlipidemia, unspecified Status: Acute Assessment and Plan: Continue statin (5) Acute blood loss anemia: Code(s): D62 - Acute posthemorrhagic anemia Status: Acute Assessment and Plan: Monitor hemoglobin and transfuse as needed Subjective Date/time seen: 08/23/24 11:16 Interval history: Cardiology follow up for atrial fibrillation Date of service 08/23/2024: He remains in atrial fibrillation with intermittent RVR. Does feel palpitations sometimes. No chest pain or shortness of breath. Review of Systems Constitutional: Constitutional: Denies chills, Denies fever(s) and Denies poor appetite Eyes: Eyes: Denies eye discharge, Denies loss of vision, Denies eye pain and Denies photophobia ENT: Denies dizziness, Denies epistaxis, Denies nasal congestion and Denies sore throat Cardiovascular: Cardiovascular: Denies chest pain, Denies syncope, Denies pedal edema, Denies leg edema, Denies palpitations, Denies dyspnea, Denies dyspnea on exertion and Denies orthopnea Respiratory: Respiratory: Denies cough, Denies dyspnea, Denies dyspnea on exertion and Denies wheezing Gastrointestinal: Gastrointestinal: Reports abdominal pain, Reports diarrhea, Denies nausea and Denies vomiting Genitourinary: Genitourinary: Denies hematuria, Denies genital lesions and Denies dysuria Musculoskeletal: Musculoskeletal: Denies arthralgias, Denies joint swelling and Denies numbness Integumentary/Breasts: Skin/Breast: Denies pruritus and Denies rash Neurologic: Denies dizziness, Denies syncope, Denies loss of vision and Denies numbness Psychiatric: Psychiatric: Denies anxiety and Denies depression Endocrine: Endocrine: Denies cold intolerance, Denies heat intolerance and Denies palpitations Hematologic/Lymphatic: Hematologic/Lymphatic: Denies easy bleeding and Denies easy bruising Allergic/Immunologic: Allergic/Immunologic: Denies urticaria and Denies wheezing Exam Const: General: cooperative, comfortable, no acute distress, alert, awake and well nourished Nutritional Appearance: well nourished Orientation/consciousness: patient oriented x3 HENMT: Head: normal to inspection, normocephalic and atraumatic Ears: hearing grossly normal bilaterally Face/Nose/Sinus: Normal external nose present, Normal nares present, no nasal discharge noted, normal facial exam and No erythema Face and sinus: normal facial exam and no erythema Mouth: No drooling and No restricted motion Throat: uvula midline Eyes: General: appearance normal, both eyes and all related structures Alignment and Position: position normal Conjunctivae: conjunctivae normal Sclera: sclerae normal Direct Ophthalmoscopy: No photophobia Neck: Neck: normal visual inspection and no JVD Thyroid: thyroid normal Carotids: no bruits Lymphatic: lymphedema not noted Chest: Chest palpation & inspection: normal inspection of the chest and no tenderness Resp: Effort & Inspection: normal respiratory effort and no nasal flaring Auscultation: clear to auscultation bilaterally, no crackles, no rales and no wheezes Cardio: Jugular venous distension: no JVD Rate: regular rate Rhythm: regular rhythm and abnormal rhythm Heart sounds: S1 normal heart sound present, S2 normal heart sound present, no murmurs and no rubs GI: Inspection: non-distended Auscultation: normal bowel sounds Rectal Exam: deferred : General: No no CVA tenderness Back/Spine/Pelvis: Back: No no CVA tenderness Cervical Spine: cervical ROM normal Skin: General skin exam: normal color and rashes and/or lesions noted Neuro: General: patient oriented x3 Cranial nerves: No CN's II-XII intact bilaterally Speech: normal speech Motor exam (neuro): no tremors Extrem: General: normal to inspection and pedal edema present Psych: Appearance: grossly normal and well kempt Speech and movement: Normal speech and movement present Affect: normal affect Objective Data Vital Signs Vital Signs: Vital Signs - 24 hr 08/22/24 12:00 08/22/24 13:21 08/22/24 12:00 Temperature 36.7 C Pulse Rate 94 105 H 119 H Respiratory Rate 20 Blood Pressure 120/54 L Pulse Oximetry 93 Oxygen Delivery Fraction of Inspired Oxygen 08/22/24 16:00 08/22/24 17:49 08/22/24 16:00 Temperature 37.0 C Pulse Rate 91 107 H 97 Respiratory Rate 12 Blood Pressure 105/52 L Pulse Oximetry 94 Oxygen Delivery Fraction of Inspired Oxygen 08/22/24 19:03 08/22/24 18:50 08/22/24 22:06 Temperature 36.7 C 36.9 C Pulse Rate 110 H 86 Respiratory Rate 20 16 Blood Pressure 104/57 L 117/49 L Pulse Oximetry 97 95 Oxygen Delivery Room Air Fraction of Inspired Oxygen 08/22/24 20:00 08/22/24 20:00 08/22/24 23:27 Temperature Pulse Rate 103 H 110 H 110 H Respiratory Rate 20 Blood Pressure Pulse Oximetry 97 Oxygen Delivery Room Air Fraction of Inspired Oxygen 21 08/23/24 00:00 08/23/24 04:00 08/23/24 06:24 Temperature Pulse Rate 103 H 86 94 Respiratory Rate Blood Pressure Pulse Oximetry Oxygen Delivery Fraction of Inspired Oxygen 08/23/24 06:26 08/23/24 08:00 08/23/24 08:30 Temperature 36.3 C L 36.2 C L Pulse Rate 82 90 Respiratory Rate 18 18 Blood Pressure 114/67 109/63 Pulse Oximetry 94 96 Oxygen Delivery Room Air Fraction of Inspired Oxygen 08/23/24 08:00 Temperature Pulse Rate 91 Respiratory Rate Blood Pressure Pulse Oximetry Oxygen Delivery Fraction of Inspired Oxygen Intake/Output Intake/Output: Intake & Output 08/21/24 08/22/24 08/22/24 08/23/24 00:59 00:59 23:59 23:59 Intake Total 915 Output Total 1600 Balance -685 Meds/Results Medications: Active Medications Generic Name Dose Route Start Last Admin Trade Name Freq PRN Reason Stop Dose Admin Acetaminophen 650 mg 08/21/24 09:34 Acetaminophen 325 Mg Tablet PO Q6H PRN Mild Pain (1-3) or Fever Atorvastatin Calcium 80 mg 08/19/24 21:00 08/22/24 21:04 Atorvastatin 40 Mg Tablet PO 80 mg HS HEIKE Administration Benzocaine 1 lozenge 08/21/24 13:25 08/21/24 13:49 Benzocaine/Menthol (*Bkc) 18 Ea Lozenge PO 1 lozenge PRN PRN Administration Sore Throat Clotrimazole 1 applic 08/19/24 18:55 08/23/24 08:34 Betamethasone/Clotrimazole Cream 15 Gm Tube TOPICAL 1 applic BID HEIKE Administration Dextrose 12.5 gm 08/19/24 14:31 Dextrose 50% 25 Gm/50 Ml Syringe IV PUSH PRN PRN Hypoglycemia Protocol Ezetimibe 10 mg 08/20/24 09:00 08/23/24 08:33 Ezetimibe 10 Mg Tablet PO 10 mg DAILY HEIKE Administration Empagliflozin 25 mg 08/20/24 09:00 08/23/24 08:34 Empagliflozin 25 Mg Tablet PO 25 mg QAM HEIKE Administration Ferrous Sulfate 325 mg 08/23/24 09:00 08/23/24 09:54 Ferrous Sulfate [address] PO 325 mg BID HEIKE Administration Furosemide 20 mg 08/20/24 08:35 08/23/24 08:33 Furosemide 20 Mg Tablet PO 20 mg QAM HEIKE Administration Gabapentin 300 mg 08/19/24 18:55 08/23/24 08:34 Gabapentin 300 Mg Capsule PO 300 mg BID HEIKE Administration Glucagon 1 mg 08/19/24 14:31 Glucagon For Inj 1 Mg Vial IM PRN PRN Hypoglycemia Protocol Glucose 15 gm 08/19/24 14:31 Glucose Oral Gel 15 Gm Of Glucse In 37.5 Gm Tube PO PRN PRN Hypoglycemia Protocol Dextrose 1,000 mls @ 100 mls/hr 08/19/24 14:31 Dextrose 5% 1,000 Ml IVPB PRN PRN Hypoglycemia Protocol Iron Sucrose 100 mg/ Sodium 55 mls @ 220 mls/hr 08/21/24 09:15 08/23/24 08:52 Chloride IVPB Infused DAILY HEIKE Infusion Insulin Aspart 4 - 8 units 08/19/24 17:00 08/23/24 08:32 Insulin Aspart (*Bkc) 100 Units/Ml SUB-Q Not Given TIDWM HEIKE Protocol Insulin Aspart 3 units 08/21/24 12:00 08/23/24 08:33 Insulin Aspart (*Bkc) 100 Units/Ml SUB-Q 3 units TIDWM HEIKE Administration Insulin Glargine 36 units 08/20/24 21:00 08/23/24 08:37 Insulin Glargine (*Bkc) 100 Units/Ml SUB-Q 36 units Q12HR HEIKE Administration Levothyroxine Sodium 88 mcg 08/20/24 06:30 08/23/24 06:24 Levothyroxine Sodium 88 Mcg Tablet PO 88 mcg DAILY@0630 HEIKE Administration Metoprolol Tartrate 25 mg 08/22/24 12:55 08/23/24 06:24 Metoprolol Tartrate 25 Mg Tablet PO 25 mg Q6HR HEIKE Administration Ondansetron HCl 4 mg 08/19/24 20:30 08/20/24 13:39 Ondansetron Inj 4 Mg/2 Ml Vial IV PUSH 4 mg Q6H PRN Administration Nausea And Vomiting Pantoprazole Sodium 40 mg 08/20/24 09:00 08/23/24 08:34 Pantoprazole Sodium Iv 40 Mg Vial IV PUSH 40 mg QAM HEIKE Administration Ranolazine 500 mg 08/20/24 09:00 08/23/24 08:34 Ranolazine 500 Mg Tab.Er.12h PO 500 mg DAILY HEIKE Administration Ropinirole HCl 1 mg 08/19/24 21:00 08/22/24 21:04 Ropinirole Hcl 1 Mg Tablet PO 1 mg HS HEIKE Administration Radiology Results: ITS Impressions Abdomen/Pelvis CT 08/19/24 12:11 IMPRESSION: 1. Fluid in nondilated normal. Large and small bowel consistent with nonspecific diarrhea. No other acute intra-abdominal/pelvic process. 2. Nonobstructing left nephrolithiasis. 3. Cholelithiasis. Labs Labs: Laboratory Results - last 24 hr 08/22/24 08/22/24 08/22/24 11:33 17:27 21:59 WBC RBC Hgb Hct MCV MCH MCHC RDW Plt Count MPV Immature Gran % (Auto) Neut % (Auto) Lymph % (Auto) [place] % (Auto) Eos % (Auto) Baso % (Auto) Lymph # (Auto) [place] # (Auto) Eos # (Auto) Baso # (Auto) Abs Immat Gran (auto) Absolute Neuts (auto) Absolute Nucleated RBC Nucleated RBC % Sodium Potassium Chloride Carbon Dioxide Anion Gap BUN Creatinine Estim Creat Clear Calc Estimated GFR Glucose POC Capillary Glucose 178 H 207 H 176 H Calcium 08/23/24 08/23/24 05:55 07:51 WBC 8.0 RBC 3.16 L Hgb 8.4 L Hct 27.0 L MCV 85.4 MCH 26.6 MCHC 31.1 L RDW 17.5 H Plt Count 277 MPV 9.6 Immature Gran % (Auto) 3.4 H Neut % (Auto) 60.8 Lymph % (Auto) 21.1 [place] % (Auto) 11.1 H Eos % (Auto) 3.0 Baso % (Auto) 0.6 Lymph # (Auto) 1.70 [place] # (Auto) 0.9 H Eos # (Auto) 0.2 Baso # (Auto) 0.1 Abs Immat Gran (auto) 0.27 H Absolute Neuts (auto) 4.9 Absolute Nucleated RBC 0.070 H Nucleated RBC % 0.9 H Sodium 139 Potassium 3.5 Chloride 103 Carbon Dioxide 30 Anion Gap 6 BUN 11 Creatinine 0.90 Estim Creat Clear Calc 83 Estimated GFR > 60 Glucose 132 H POC Capillary Glucose 156 H Calcium 8.1 L Quality VTE Prophylaxis VTE prophylaxis: mechanical ordered
[2024-08-23 12:04] LABS: Glucose Point of Care 173 mg/dl (65-105)
[2024-08-23] MEDS: METOPROLOL TARTRATE 12.5 MG TABLET 37.5 MG PO ×3 (12:33→23:32)
[2024-08-23 17:16] LABS: Glucose Point of Care 154 mg/dl (65-105)
[2024-08-23] MEDS: rOPINIRole HCL 1 MG TABLET PO (20:55)
[2024-08-23] MEDS: ATORVASTATIN 40 MG TABLET 80 MG PO (20:55)
[2024-08-23 23:28] LABS: Glucose Point of Care 202 mg/dl (65-105)
[2024-08-24] VITALS (7 sets, daily range): BP systolic 110–124; BP diastolic 50–59; PULSE 70–103; RESP 18; TEMP 36.6–36.9; O2SAT 94–96
[2024-08-24] MEDS: LEVOTHYROXINE SODIUM 88 MCG TABLET PO (06:04)
[2024-08-24] MEDS: METOPROLOL TARTRATE 12.5 MG TABLET 37.5 MG PO ×2 (06:05→12:53)
[2024-08-24 08:11] LABS: Glucose Point of Care 135 mg/dl (65-105)
--- NOTE | 2024-08-24 08:58 | PM.IMPN ---
Progress Note: A&P Assessment and Plan (1) Acute upper GI bleeding: Code(s): K92.2 - Gastrointestinal hemorrhage, unspecified Status: Acute (2) Type 2 diabetes mellitus without complications: Qualifiers: Diabetes mellitus adjunct faculty for medical terminology insulin use: with adjunct faculty for medical terminology use Qualified Code(s): E11.9 - Type 2 diabetes mellitus without complications; Z79.4 - exterminator (current) use of insulin Code(s): E11.9 - Type 2 diabetes mellitus without complications Status: Chronic (3) Hypothyroidism: Qualifiers: Hypothyroidism type: acquired Qualified Code(s): E03.9 - Hypothyroidism, unspecified Code(s): E03.9 - Hypothyroidism, unspecified Status: Acute (4) Hypertension: Qualifiers: Hypertension type: primary hypertension Qualified Code(s): I10 - Essential (primary) hypertension Code(s): I10 - Essential (primary) hypertension Status: Chronic (5) JULIANNE (obstructive sleep apnea): Code(s): G47.33 - Obstructive sleep apnea (adult) (pediatric) Status: Chronic Plan Acute GI bleed: Qualifiers: GI bleed type/associated pathology: unspecified gastrointestinal hemorrhage type Qualified Code(s): K92.2 - Gastrointestinal hemorrhage, unspecified Code(s): K92.2 - Gastrointestinal hemorrhage, unspecified Status: Acute Assessment and Plan: - Hgb 11.5 -> 9.3. previously 13.1 on 12/20/2023. MCV normal, mildly reduced MCHC. - hemoccult was positive - on anticoagulation/antiplatelet: Eliquis and Plavix, held - CT abd/pelvis: 1. Fluid in nondilated normal. Large and small bowel consistent with nonspecific diarrhea. No other acute intra-abdominal/pelvic process. 2. Nonobstructing left nephrolithiasis. 3. Cholelithiasis. - GI consulted, GI found out a single 15 mm ulcer in the ascending colon Patient does have bloody stools today. Denies abdomen pain, nausea vomiting GI recommends to hold blood thinners at least for 7 days Acute on chronic blood-loss anemia Hemoglobin 13.1 December 19, 2021 - trend H&H q.4 hours x3 - started on pantoprazole IVP daily - last colonoscopy on 08/10/2024 and showed colonic polyps with polypectomy and internal hemorrhoids - monitor hemodynamic stability and telemetry Given drop in hemoglobin and soft BP, will transfuse 1 unit. Continue to trend H&H. Follow-up ferritin 7.38, and iron 22, iron saturation 8% Patient has iron deficient anemia due to blood loss on Venofer 100 mg IV daily since 08/21 Hemoglobin is trending up 9.4 today will change to ferrous sulfate 325 mg b.i.d. p.o. p.o. on discharge Paroxysmal AFib RVR Now patient has AFib Hold Eliquis because of active bleeding Consult cardiology for evaluation and treatment Appreciate cardiology's consultation, hospitalist nocturnist physician recommends to stop the Coreg 12.5 mg b.i.d. and start metoprolol 25 mg q.6 hours to achieve better rate control. Rate is better controlled, titration per hospitalist nocturnist physician Changed to metoprolol succinate 150 mg daily p.o. per hospitalist nocturnist physician Acquired hypothyroidism Continue Synthroid 88 mcg daily p.o. Type 2 diabetes mellitus without complications: Qualifiers: Diabetes mellitus shelter insulin use: with adjunct faculty for medical terminology use Qualified Code(s): E11.9 - Type 2 diabetes mellitus without complications; Z79.4 - exterminator (current) use of insulin Code(s): E11.9 - Type 2 diabetes mellitus without complications Status: Chronic Assessment and Plan: - hypoglycemia protocol - POC blood glucose ACHS - home medication: Continue Jardiance. Held Ozempic (NF), metformin, and U-500 Humulin R held on 260u total (NF). U-500 converted to Lantus at 70% of original dose and divided BID for Lantus 90 BID. given how high this dose is and that patient will be NPO at midnight, will cut back to 36 BID of Lantus. - correct regimen ordered - high dose TIDWM, based off BMI - A1C 6.4% in 2020, update Resume home medication on discharge. Patient needs to see primary care doctor in 1 week to adjust medication Hypertension: Qualifiers: Hypertension type: primary hypertension Qualified Code(s): I10 - Essential (primary) hypertension Code(s): I10 - Essential (primary) hypertension Status: Chronic Assessment and Plan: - chronic, currently 99/58 - home medications: hold amlodipine-benazepril, carvedilol Blood pressure stable without hypertension medication Continue Hold hypertension medication on discharge, resume medication per primary care doctor if blood pressure bone postop JULIANNE (obstructive sleep apnea): Code(s): G47.33 - Obstructive sleep apnea (adult) (pediatric) Status: Chronic Assessment and Plan: - continue home CPAP discharge patient today, approved by GI and hospitalist nocturnist physician Subjective Date/time seen: 08/24/24 08:58 Interval history: I saw exam patient today, patient feels better, denies abdomen pain, nausea vomiting bloody stools, hemoglobin going up 9.4, rate is controlled Exam Narrative: GENERAL: Pleasant, in no acute distress. Well-nourished. - EYES: EOMI. Anicteric. Pale - HENT: Moist mucous membranes. - LUNGS: Clear to auscultation bilaterally, no wheezing, rhonchi, or rales. - CARDIOVASCULAR: Irregular irregular rhythm, rate is controlled. No murmur. No JVD. - ABDOMEN: Soft, non-tender and non-distended. No palpable masses. - EXTREMITIES: No edema. Peripheral pulses 2+. Non-tender. - NEUROLOGIC: No focal neurological deficits. CN II-XII grossly intact. - PSYCHIATRIC: Awake, Alert and oriented x 3. Appropriate mood and affect. - SKIN: No rashes or lesions. Warm. - LYMPH: No cervical lymphadenopathy. Objective Data Vital Signs Vital Signs: Vital Signs - 24 hr 08/23/24 12:00 08/23/24 12:33 08/23/24 12:00 Temperature 97.5 F L Pulse Rate 96 96 102 H Respiratory Rate 20 Blood Pressure 106/53 L Pulse Oximetry 93 Oxygen Delivery Fraction of Inspired Oxygen 08/23/24 16:00 08/23/24 16:00 08/23/24 17:48 Temperature 98 F Pulse Rate 112 H 70 112 H Respiratory Rate 18 Blood Pressure 130/72 Pulse Oximetry 100 Oxygen Delivery Fraction of Inspired Oxygen 08/23/24 20:00 08/23/24 20:37 08/23/24 20:00 Temperature 98.3 F 98.3 F Pulse Rate 103 H 103 H 101 H Respiratory Rate 18 18 Blood Pressure 105/53 L 105/53 L Pulse Oximetry 97 97 Oxygen Delivery Fraction of Inspired Oxygen 08/23/24 20:00 08/23/24 23:32 08/24/24 00:00 Temperature 98.5 F Pulse Rate 103 H 116 H 94 Respiratory Rate 18 18 Blood Pressure 110/57 L Pulse Oximetry 97 96 Oxygen Delivery Room Air Fraction of Inspired Oxygen 21 24 00:00 08/24/24 04:00 08/24/24 04:00 Temperature 97.9 F Pulse Rate 97 103 H 90 Respiratory Rate 18 Blood Pressure 118/50 L Pulse Oximetry 95 Oxygen Delivery Fraction of Inspired Oxygen 08/24/24 06:05 08/24/24 06:20 Temperature 98.0 F Pulse Rate 95 91 Respiratory Rate 18 Blood Pressure 111/59 L Pulse Oximetry 95 Oxygen Delivery Fraction of Inspired Oxygen Intake/Output Intake/Output: Intake & Output 08/22/24 08/22/24 08/23/24 08/24/24 00:59 23:59 23:59 23:59 Intake Total 1395 Output Total 2850 Balance -1455 Meds/Results Medications: Active Medications Generic Name Dose Route Start Last Admin Trade Name Freq PRN Reason Stop Dose Admin Acetaminophen 650 mg 08/21/24 09:34 Acetaminophen 325 Mg Tablet PO Q6H PRN Mild Pain (1-3) or Fever Atorvastatin Calcium 80 mg 08/19/24 21:00 08/23/24 20:55 Atorvastatin 40 Mg Tablet PO 80 mg HS HEIKE Administration Benzocaine 1 lozenge 08/21/24 13:25 08/21/24 13:49 Benzocaine/Menthol (*Bkc) 18 Ea Lozenge PO 1 lozenge PRN PRN Administration Sore Throat Clotrimazole 1 applic 08/19/24 18:55 08/23/24 17:49 Betamethasone/Clotrimazole Cream 15 Gm Tube TOPICAL 1 applic BID HEIKE Administration Dextrose 12.5 gm 08/19/24 14:31 Dextrose 50% 25 Gm/50 Ml Syringe IV PUSH PRN PRN Hypoglycemia Protocol Ezetimibe 10 mg 08/20/24 09:00 08/23/24 08:33 Ezetimibe 10 Mg Tablet PO 10 mg DAILY HEIKE Administration Empagliflozin 25 mg 08/20/24 09:00 08/23/24 08:34 Empagliflozin 25 Mg Tablet PO 25 mg QAM HEIKE Administration Ferrous Sulfate 325 mg 08/23/24 09:00 08/23/24 17:47 Ferrous Sulfate [address] PO 325 mg BID HEIKE Administration Furosemide 20 mg 08/20/24 08:35 08/23/24 08:33 Furosemide 20 Mg Tablet PO 20 mg QAM HEIKE Administration Gabapentin 300 mg 08/19/24 18:55 08/23/24 17:47 Gabapentin 300 Mg Capsule PO 300 mg BID HEIKE Administration Glucagon 1 mg 08/19/24 14:31 Glucagon For Inj 1 Mg Vial IM PRN PRN Hypoglycemia Protocol Glucose 15 gm 08/19/24 14:31 Glucose Oral Gel 15 Gm Of Glucse In 37.5 Gm Tube PO PRN PRN Hypoglycemia Protocol Dextrose 1,000 mls @ 100 mls/hr 08/19/24 14:31 Dextrose 5% 1,000 Ml IVPB PRN PRN Hypoglycemia Protocol Iron Sucrose 100 mg/ Sodium 55 mls @ 220 mls/hr 08/21/24 09:15 08/23/24 08:52 Chloride IVPB Infused DAILY HEIKE Infusion Insulin Aspart 4 - 8 units 08/19/24 17:00 08/24/24 08:13 Insulin Aspart (*Bkc) 100 Units/Ml SUB-Q Not Given TIDWM HEIKE Protocol Insulin Aspart 3 units 08/21/24 12:00 08/23/24 17:48 Insulin Aspart (*Bkc) 100 Units/Ml SUB-Q 3 units TIDWM HEIKE Administration Insulin Glargine 36 units 08/20/24 21:00 08/23/24 20:54 Insulin Glargine (*Bkc) 100 Units/Ml SUB-Q 36 units Q12HR HEIKE Administration Levothyroxine Sodium 88 mcg 08/20/24 06:30 08/24/24 06:04 Levothyroxine Sodium 88 Mcg Tablet PO 88 mcg DAILY@0630 HEIKE Administration Metoprolol Tartrate 37.5 mg 08/23/24 12:25 08/24/24 06:05 Metoprolol Tartrate 12.5 Mg Tablet PO 37.5 mg Q6HR HEIKE Administration Ondansetron HCl 4 mg 08/19/24 20:30 08/20/24 13:39 Ondansetron Inj 4 Mg/2 Ml Vial IV PUSH 4 mg Q6H PRN Administration Nausea And Vomiting Pantoprazole Sodium 40 mg 08/20/24 09:00 08/23/24 08:34 Pantoprazole Sodium Iv 40 Mg Vial IV PUSH 40 mg QAM HEIKE Administration Ranolazine 500 mg 08/20/24 09:00 08/23/24 08:34 Ranolazine 500 Mg Tab.Er.12h PO 500 mg DAILY HEIKE Administration Ropinirole HCl 1 mg 08/19/24 21:00 08/23/24 20:55 Ropinirole Hcl 1 Mg Tablet PO 1 mg HS EHIKE Administration Radiology Results: ITS Impressions Abdomen/Pelvis CT 08/19/24 12:11 IMPRESSION: 1. Fluid in nondilated normal. Large and small bowel consistent with nonspecific diarrhea. No other acute intra-abdominal/pelvic process. 2. Nonobstructing left nephrolithiasis. 3. Cholelithiasis. Labs Labs: Laboratory Results - last 24 hr 08/23/24 08/23/24 08/23/24 11:52 17:11 20:31 POC Capillary Glucose 173 H 154 H 202 H 08/24/24 07:43 POC Capillary Glucose 135 H
[2024-08-24 09:33] LABS: Hematocrit 30.2 % (42.0-52.0); Hemoglobin 9.4 g/dL (14.0-18.0); Mean Corpuscular HGB Conc 31.1 g/dl (32-36); Mean Corpuscular Hemoglobin 27.2 pg (26-34); Mean Corpuscular Volume 87.3 fl (80-100); Mean Platelet Volume 9.4 fl (7.4-10.4); Platelet Count Result 326 k/mm3 (150-375); Red Blood Count 3.46 M/mm3 (4.6-6.20); Red Cell Distribution Width 19.1 % (11.5-14.5); White Blood Count 10.7 K/mm3 (4.5-10.0)
[2024-08-24] MEDS: FUROSEMIDE 20 MG TABLET PO (09:34)
[2024-08-24] MEDS: PANTOPRAZOLE 40 MG TABLET PO (09:34)
[2024-08-24] MEDS: RANOLAZINE 500 MG TAB.ER.12H PO (09:35)
[2024-08-24] MEDS: FERROUS SULFATE 325 MG TABLET DR PO (09:35)
[2024-08-24] MEDS: GABAPENTIN 300 MG CAPSULE PO (09:35)
[2024-08-24] MEDS: EZETIMIBE 10 MG TABLET PO (09:35)
[2024-08-24] MEDS: EMPAGLIFLOZIN 25 MG TABLET PO (09:35)
[2024-08-24] MEDS: BETAMETHASONE/CLOTRIMAZOLE CREAM 15 GM TUBE 1 APPLIC TOPICAL (09:35)
[2024-08-24 09:37] LABS: Anion Gap 9 mmol/L (4-12); Blood Urea Nitrogen 13 mg/dL (9-20); Calcium 8.4 mg/dL (8.4-10.2); Carbon Dioxide 27 mmol/L (22-30); Chloride 103 mmol/L (98-107); Estimated CRCL calculation 82 ml/min; Estimated Glomerular Filt Rate > 60; Glucose 186 mg/dL (65-110); Potassium 3.7 mmol/L (3.4-5.0); Sodium 139 mmol/L (137-145)
[2024-08-24] MEDS: INSULIN ASPART (*BKC) 100 UNITS/ML SUB-Q ×2 (09:37→12:56)
[2024-08-24] MEDS: INSULIN GLARGINE (*BKC) 100 UNITS/ML 36 UNITS SUB-Q (09:38)
--- NOTE | 2024-08-24 10:52 | P.DS_ITS ---
DS: Admitting Diagnosis Discharge Date 08/24/24 Admitting Diagnosis (1) Acute upper GI bleeding: Code(s): K92.2 - Gastrointestinal hemorrhage, unspecified Status: Acute (2) Type 2 diabetes mellitus without complications: Qualifiers: Diabetes mellitus emt intermediate insulin use: with senior care use Qualified Code(s): E11.9 - Type 2 diabetes mellitus without complications; Z79.4 - exterminator termite (current) use of insulin Code(s): E11.9 - Type 2 diabetes mellitus without complications Status: Chronic (3) Hypothyroidism: Qualifiers: Hypothyroidism type: acquired Qualified Code(s): E03.9 - Hypothyroidism, unspecified Code(s): E03.9 - Hypothyroidism, unspecified Status: Acute (4) Hypertension: Qualifiers: Hypertension type: primary hypertension Qualified Code(s): I10 - Essential (primary) hypertension Code(s): I10 - Essential (primary) hypertension Status: Chronic (5) JULIANNE (obstructive sleep apnea): Code(s): G47.33 - Obstructive sleep apnea (adult) (pediatric) Status: Chronic DS: Discharge Diagnosis Discharge Diagnosis (1) Acute upper GI bleeding: Code(s): K92.2 - Gastrointestinal hemorrhage, unspecified Status: Acute (2) Type 2 diabetes mellitus without complications: Qualifiers: Diabetes mellitus emt intermediate insulin use: with senior care use Qualified Code(s): E11.9 - Type 2 diabetes mellitus without complications; Z79.4 - jail (current) use of insulin Code(s): E11.9 - Type 2 diabetes mellitus without complications Status: Chronic (3) Hypothyroidism: Qualifiers: Hypothyroidism type: acquired Qualified Code(s): E03.9 - Hypothyroidism, unspecified Code(s): E03.9 - Hypothyroidism, unspecified Status: Acute (4) Hypertension: Qualifiers: Hypertension type: primary hypertension Qualified Code(s): I10 - Essential (primary) hypertension Code(s): I10 - Essential (primary) hypertension Status: Chronic (5) JULIANNE (obstructive sleep apnea): Code(s): G47.33 - Obstructive sleep apnea (adult) (pediatric) Status: Chronic DS: Summary Hospital Course Hospital Course: 64 y/o M presents here with blood in his stool with PMH of CAD, diabetes, HTN, GERD, hypothyroidism, [place], JULIANNE, sleep apnea.The patient presents here from home for further evaluation of blood in his stool. First blood tinged diarrhea (bright red) episode occurred this morning at 7:30 a.m., has had 3 episodes while at home and 4-5 post-arrival to the hospital. Loose stools began yesterday but were normal in color, however he reports he chronically has loose stools due a side effect of Ozempic. Reports associated abdominal pain he further describes as slight, has resolved, cramping, nonradiating, LLQ, constant and worsens with palpation. The patient is currently on Eliquis. He recently had a colonoscopy on on 08/10/2024 which showed colonic polyps with polypectomy performed and internal hemorrhoids here at [facility]. He reports one episode of BRB post-BM that occurred. Has family history of colon cancer - father, paternal grandmother. No associated fever, chills, or body aches. Initial VS at presentation: 97.8? F, HR 81, RR 16, 82/35, and 97% on RA. ED workup showed: Number acidosis, hemoglobin 11.5 (previously 13.1 on 12/20/2023), INR 1.2, creatinine 1.0 and GFR >60, glucose 160. CT of the abdomen/pelvis showed fluid in in the nondilated small bowel and proximal colon consistent with diarrhea, no other acute intra-abdominal/pelvic process, nonobstructing left nephrolithiasis, and cholelithiasis. The following med issues have been addressed during hospitalization Acute GI bleed: Qualifiers: GI bleed type/associated pathology: unspecified gastrointestinal hemorrhage type Qualified Code(s): K92.2 - Gastrointestinal hemorrhage, unspecified Code(s): K92.2 - Gastrointestinal hemorrhage, unspecified Status: Acute Assessment and Plan: - Hgb 11.5 -> 9.3. previously 13.1 on 12/20/2023. MCV normal, mildly reduced MCHC. - hemoccult was positive - on anticoagulation/antiplatelet: Eliquis and Plavix, held - CT abd/pelvis: 1. Fluid in nondilated normal. Large and small bowel consistent with nonspecific diarrhea. No other acute intra-abdominal/pelvic process. 2. Nonobstructing left nephrolithiasis. 3. Cholelithiasis. - GI consulted, GI found out a single 15 mm ulcer in the ascending colon Patient does have bloody stools today. Denies abdomen pain, nausea vomiting GI recommends to hold blood thinners at least for 7 days Acute on chronic blood-loss anemia Hemoglobin 13.1 December 19, 2021 - trend H&H q.4 hours x3 - started on pantoprazole IVP daily - last colonoscopy on 08/10/2024 and showed colonic polyps with polypectomy and internal hemorrhoids - monitor hemodynamic stability and telemetry Given drop in hemoglobin and soft BP, will transfuse 1 unit. Continue to trend H&H. Follow-up ferritin 7.38, and iron 22, iron saturation 8% Patient has iron deficient anemia due to blood loss on Venofer 100 mg IV daily since 08/21 Hemoglobin is trending up 9.4 today will change to ferrous sulfate 325 mg b.i.d. p.o. p.o. on discharge Paroxysmal AFib RVR Now patient has AFib Hold Eliquis because of active bleeding Consult cardiology for evaluation and treatment Appreciate cardiology's consultation, concrete stone finishing supervisor recommends to stop the Coreg 12.5 mg b.i.d. and start metoprolol 25 mg q.6 hours to achieve better rate control. Rate is better controlled, titration per concrete stone finishing supervisor Changed to metoprolol succinate 150 mg daily p.o. per concrete stone finishing supervisor Acquired hypothyroidism Continue Synthroid 88 mcg daily p.o. Type 2 diabetes mellitus without complications: Qualifiers: Diabetes mellitus emt intermediate insulin use: with emt intermediate use Qualified Code(s): E11.9 - Type 2 diabetes mellitus without complications; Z79.4 - jail (current) use of insulin Code(s): E11.9 - Type 2 diabetes mellitus without complications Status: Chronic Assessment and Plan: - hypoglycemia protocol - POC blood glucose ACHS - home medication: Continue Jardiance. Held Ozempic (NF), metformin, and U-500 Humulin R held on 260u total (NF). U-500 converted to Lantus at 70% of original dose and divided BID for Lantus 90 BID. given how high this dose is and that patient will be NPO at midnight, will cut back to 36 BID of Lantus. - correct regimen ordered - high dose TIDWM, based off BMI - A1C 6.4% in 2020, update Resume home medication on discharge. Patient needs to see primary care doctor in 1 week to adjust medication Hypertension: Qualifiers: Hypertension type: primary hypertension Qualified Code(s): I10 - Essential (primary) hypertension Code(s): I10 - Essential (primary) hypertension Status: Chronic Assessment and Plan: - chronic, currently 99/58 - home medications: hold amlodipine-benazepril, carvedilol Blood pressure stable without hypertension medication Continue Hold hypertension medication on discharge, resume medication per primary care doctor if blood pressure bone postop JULIANNE (obstructive sleep apnea): Code(s): G47.33 - Obstructive sleep apnea (adult) (pediatric) Status: Chronic Assessment and Plan: - continue home CPAP discharge patient today, approved by GI and concrete stone finishing supervisor Time Spent with Patient Time attestation: Total time spent providing and/or coordinating discharge services: Exam Narrative: GENERAL: Pleasant, in no acute distress. Well-nourished. - EYES: EOMI. Anicteric. Pale - HENT: Moist mucous membranes. - LUNGS: Clear to auscultation bilateral ly, no wheezing, rhonchi, or rales. - CARDIOVASCULAR: Irregular irregular r hythm, rate is controlled. No murmur. No JVD. - ABDOMEN: Soft, non-tender and non-dist ended. No palpable masses. - EXTREMITIES: No edema. Peripheral puls es 2+. Non-tender. - NEUROLOGIC: No focal neurological defi cits. CN II-XII grossly intact. - PSYCHIATRIC: Awake, Alert and oriented x 3. Appropriate mood and affect. - SKIN: No rashes or lesions. Warm. - LYMPH: No cervical lymphadenopathy. DS: Data Data Completed and Pending Labs on day of discharge: Labs from last 24 hours 08/24/24 08/24/24 08/23/24 09:19 07:43 20:31 WBC 10.7 H RBC 3.46 L Hgb 9.4 L Hct 30.2 L MCV 87.3 MCH 27.2 MCHC 31.1 L RDW 19.1 H Plt Count 326 MPV 9.4 Sodium 139 Potassium 3.7 Chloride 103 Carbon Dioxide 27 Anion Gap 9 BUN 13 Creatinine 0.90 Estim Creat Clear Calc 82 Estimated GFR > 60 Glucose 186 H POC Capillary Glucose 135 H 202 H Calcium 8.4 08/23/24 08/23/24 17:11 11:52 WBC RBC Hgb Hct MCV MCH MCHC RDW Plt Count MPV Sodium Potassium Chloride Carbon Dioxide Anion Gap BUN Creatinine Estim Creat Clear Calc Estimated GFR Glucose POC Capillary Glucose 154 H 173 H Calcium Discharge Plan Discharge Attending physician on discharge: Libia Albrecht Consulting providers: Ramsey Gaytan; Maximus Riggs Discharging Clinician: Libia Albrecht Anticipated Discharge Date/Time: 08/23/24 11:43 Patient Disposition: Home, Self-Care Activity: as tolerated Diet: heart healthy Discharge Instructions: GI Bleed Patient Instructions: Antibiotic Form, Metoprolol (By mouth), Apixaban (By mouth) Stand Alone Forms: General Discharge Information Follow-up/Referrals: Maximus Riggs MD [Physician] - (Follow-up concrete stone finishing supervisor at scheduled appointment) Meir Serna DO [Primary Care Provider] - (Patient needs to see primary care doctor in 1 week) Levi Ling MD [Physician] - (Follow-up with GI at scheduled appointment) Discharge Medications: New ferrous sulfate 325 mg (65 mg iron) Tablet,Delayed Release (Dr/Ec) 325 mg PO BID Qty: 60 0RF metoprolol succinate 100 mg tablet extended release 24 hr 150 mg PO DAILY Qty: 60 0RF Continued furosemide 20 mg tablet 20 mg PO QAM PRN (Reason: Edema) sildenafil (pulm.hypertension) 20 mg tablet 40 - 100 mg PO ONCE PRN (Reason: sexual activity) Qty: 50 1RF Rx Instructions: take 2-5 tabs by oral route before sexual activity clotrimazole-betamethasone 1-0.05 % cream 1 applic TOPICAL BID Qty: 45 1RF Rx Instructions: Posterior left leg rash ranolazine 500 mg tablet extended release 12 hr 500 mg PO DAILY nitroglycerin [Nitrostat] 0.4 mg tablet, sublingual 0.4 mg SUBLINGUAL Q5M Rx Instructions: do not exceed 3 doses per episode glucagon 3 mg/actuation spray,non-aerosol 3 mg intranasal ONCE PRN (Reason: LOW BLOOD SUGAR) Rx Instructions: as a single dose; may repeat once in 15 minutes if no response levothyroxine 88 mcg tablet 88 mcg PO DAILY Rx Instructions: TAKE 1 TABLET BY MOUTH EVERY DAY atorvastatin 80 mg tablet 80 mg PO HS omeprazole 20 mg capsule,delayed release(DR/EC) 20 mg PO HS Rx Instructions: TAKE 1 CAPSULE BY MOUTH DAILY (DME) blood sugar diagnostic Strip See Rx Instructions .ROUTE .MEDSUPPLY Qty: 400 3RF Rx Instructions: use to check blood sugars 3-4 times daily ezetimibe [Zetia] 10 mg tablet 10 mg PO DAILY Qty: 90 1RF Humulin R U-500 (Conc) Kwikpen 500 unit/mL (3 mL) insulin pen See Rx Instructions .ROUTE .COMPLEX Qty: 48 3RF Dose Instruction: INJECT SUBCUTANEOUSLY 100 UNITS BEFORE BREAKFAST , 80 UNITS BEFORE LUNCH AND 80 UNITS BEFORE DINNER Rx Instructions: INJECT SUBCUTANEOUSLY 100 UNITS BEFORE BREAKFAST , 80 UNITS BEFORE LUNCH AND 80 UNITS BEFORE DINNER- BASED ON MONITOR READING LIBR pen needle, diabetic [BD Deya 2nd Gen Pen Needle] 32 gauge x 5/32 needle See Rx Instructions .ROUTE .COMPLEX Qty: 300 3RF Dose Instruction: USE DIRECTED Rx Instructions: USE DIRECTED ropinirole 1 mg tablet 1 mg PO .QHS Qty: 90 2RF Jardiance 25 mg tablet 25 mg PO QAM Qty: 90 1RF Ozempic 2 mg/dose (8 mg/3 mL) pen injector 2 mg subcut WEEKLY 90 Days Qty: 9 4RF gabapentin 300 mg capsule 300 mg PO BID Qty: 60 5RF metformin 500 mg tablet extended release 24 hr 2,000 mg PO DAILY Qty: 360 1RF Held Eliquis 5 mg tablet 5 mg PO BID Qty: 1 0RF Hold Instructions: Resume on 09/03/24. clopidogrel 75 mg tablet 75 mg PO DAILY Hold Instructions: Resume on 08/30/24. Rx Instructions: TAKE 1 TABLET BY MOUTH EVERY DAY Discontinued carvedilol 12.5 mg tablet 12.5 mg PO Q12H Rx Instructions: must administer with a meal/food amlodipine-benazepril 5-20 mg capsule 1 cap PO DAILY Qty: 90 3RF Date of admission: 08/20/24 11:24 Primary Care Provider: Meir Serna Admitting Provider: Tl Suarez Attending physician on admission: Tl Suarez Condition: Stable
[2024-08-24 12:33] LABS: Glucose Point of Care 168 mg/dl (65-105)
[2024-08-24] MEDS: ACETAMINOPHEN 325 MG TABLET 650 MG PO (12:53)
== END 2024-08-24 13:19 | disposition home or self-care (01) | DRG 920 ==
LOC: ANHED 12:04 → ANHIMU 14:21 → ANH2MED 08-23 08:51 → ANHIMU 08-26 11:46
PROVIDERS: Internal Medicine Gastroenterology; Student in an Organized Health Care Education/Training Program; Admitting Provider Internal Medicine; Emergency Provider Emergency Medicine; PCP Internal Medicine; Visit Provider Hospitalist
PROC: 0DJD8ZZ Inspection of Lower Intestinal Tract, Via Natural or Artificial Opening Endoscopic (ICD-10-PCS; CPT 45378; principal; 2024-08-20 15:30)
DX: K91.840 Postprocedural hemorrhage of a digestive system organ or structure following a digestive system procedure (principal); D62 Acute posthemorrhagic anemia; Z68.41 Body mass index [BMI] 40.0-44.9, adult; K63.3 Ulcer of intestine; E03.9 Hypothyroidism, unspecified; I10 Essential (primary) hypertension; G47.33 Obstructive sleep apnea (adult) (pediatric); I48.0 Paroxysmal atrial fibrillation; I25.10 Atherosclerotic heart disease of native coronary artery without angina pectoris; K21.9 Gastro-esophageal reflux disease without esophagitis; E11.42 Type 2 diabetes mellitus with diabetic polyneuropathy; E66.01 Morbid (severe) obesity due to excess calories; E78.5 Hyperlipidemia, unspecified; Z79.4 Long term (current) use of insulin; I25.2 Old myocardial infarction; Z95.5 Presence of coronary angioplasty implant and graft; Z95.1 Presence of aortocoronary bypass graft; Z90.49 Acquired absence of other specified parts of digestive tract; Z98.890 Other specified postprocedural states; Z86.0109 Personal history of other colon polyps
CPT/HCPCS: 36415; 36430; 74177; 80048; 80053; 82728; 82948; 83036; 83540; 83550; 85014; 85018; 85025; 85027; 85610; 85730; 86850; 86900; 86901; 86923; 93005; 96361; 96374; 96375; 96376; 99285; A9270; G0378; J0171; J1756; J1815; J2003; J2405; J2470; J2704; J7030; J7050; J7120; P9016; Q9967

== ENCOUNTER 2024-08-25 15:28 | Outpatient (CLI) | payer MEDICARE, OTHER, SELFPAY ==
--- NOTE | ~2024-08-25 | US_ITS ---
EXAMINATION: US soft tissue UE RT DATE: 08/25/2024 16:03 INDICATION: Other specified soft tissue disorders. TECHNIQUE: Multiple grayscale and Doppler ultrasound images of the right upper limb were obtained. COMPARISON: None FINDINGS: There is no abnormal mass in right upper limb in the patient's area of concern. IMPRESSION: 1. No abnormal mass in right upper limb in the patient's area of concern. Reviewed, dictated and finalized at location A. [facility]
--- NOTE | ~2024-08-25 | US_ITS ---
RIGHT UPPER EXTREMITY VENOUS ULTRASOUND Ordering provider: Meir Serna DO History: . M79.89 - Other specified soft tissue disorders . Comparison: None. FINDINGS: --JUGULAR: Patent and free of thrombus. Normal compressibility, phasic flow and augmentation. --SUBCLAVIAN: Patent and free of thrombus. Normal compressibility, phasic flow and augmentation. --AXILLARY: Patent and free of thrombus. Normal compressibility, phasic flow and augmentation. --BRACHIAL: Patent and free of thrombus. Normal compressibility, phasic flow and augmentation. --CEPHALIC: Thrombosed is seen. --BASILIC: Patent and free of thrombus. Normal compressibility, phasic flow and augmentation. --RADIAL: Patent and free of thrombus. Normal compressibility, phasic flow and augmentation. --ULNAR: Patent and free of thrombus. Normal compressibility, phasic flow and augmentation. IMPRESSION: THROMBOSIS IS SEEN IN THE RIGHT CEPHALIC VEIN. OTHERWISE, No deep vein thrombosis. Reviewed, dictated and finalized at location A. [facility] IMPRESSION: THROMBOSIS IS SEEN IN THE RIGHT CEPHALIC VEIN. OTHERWISE, No deep vein thrombos is.
== END 2024-08-25 15:29 | disposition home or self-care (01) ==
PROVIDERS: PCP Internal Medicine; Visit Provider Internal Medicine
DX: M79.89 Other specified soft tissue disorders (principal); M79.603 Pain in arm, unspecified; I82.611 Acute embolism and thrombosis of superficial veins of right upper extremity
CPT/HCPCS: 76882; 93971